=== PATIENT | female | born 1955 | race Caucasian/White ===

== ENCOUNTER → 2018-04-09 11:46 | Outpatient (CLI) | payer BC, SELFPAY ==
[2018-04-09 12:37] LABS: Abs Immature Grans 0.01 k/cumm (0.0-0.09); Absolute Basophil Count 0.02 k/cumm (0.0-0.2); Absolute Eosinophil Count 0.26 k/cumm (0.0-0.7); Absolute Lymphocyte Count 2.02 k/cumm (1.2-3.4); Absolute Monocyte Count 0.68 k/cumm (0.11-0.7); Absolute Neutrophil Count 4.83 k/cumm (1.2-6.7); Basophils % 0.3; Eosinophils % 3.3; HCT 41.1 % (36.0-46.0); HGB 13.3 g/dL (12.0-15.5); Immature Grans % 0.1; Lymphocytes % 25.8; Mean Corp. HGB Concentration 32.4 g/dL (32.0-36.0); Mean Corpuscular Volume 95.8 fL (80-95); Mean Platelet Volume 10.3 fL (8.0-11.0); Monocytes % 8.7; Neutrophils % 61.8; Platelet Count 230 x1000/uL (130-400); RBC 4.29 m/cumm (4.00-5.20); RBC Distribution Width 12.9 % (11.7-14.6); White Blood Cell Count 7.82 k/cumm (4.4-10.8)
[2018-04-09 12:59] LABS: Hemoglobin A1C 6.1 % (4.5-6.2)
== END ==
PROVIDERS: PCP Family Medicine; Visit Provider Internal Medicine
DX: R21 Rash and other nonspecific skin eruption (principal); D64.9 Anemia, unspecified
CPT/HCPCS: 36415; 87077; 83036; 85025; 87070; 87186; 87205

== ENCOUNTER 2018-04-18 14:14 | Emergency (ER) | payer BC, SELFPAY ==
[2018-04-18] VITALS (14 sets, daily range): BP systolic 151–193; BP diastolic 55–75; PULSE 75–85; RESP 13–19; TEMP 37.1–37.2; O2SAT 94–99
--- NOTE | 2018-04-18 14:43 | DI.RPTCT_ITS ---
SYMPTOMS/DIAGNOSIS: CHEST PAIN, DIZZY, BLURRED SPEECH, TRANSIENT DYSARTHRIA PA AND LATERAL CHEST: The lungs are free of infiltrate. The heart is top limits of normal in size. The hilar structures, mediastinum and tracheal air column are intact. SUMMARY: No evidence of acute cardiopulmonary disease. CRANIAL CT: A noncontrast enhanced examination was performed. Moderate atrophic changes are demonstrated. There is no evidence of an intra/extra-axial hemorrhage, mass or edema and nothing to suggest an acute territorial infarct. The ventricles are unremarkable. There is no evidence of a skull fracture. The paranasal sinuses are intact. There is no evidence of a mastoid effusion. SUMMARY: Atrophic changes are identified. No acute intracranial abnormality is identified.
[2018-04-18] MEDS: Normal Saline 1,000 ML 1000 ML IV ×2 (14:45→16:35)
[2018-04-18] MEDS: Meclizine 25 MG TAB PO (14:54)
[2018-04-18 15:13] LABS: Abs Immature Grans 0.03 k/cumm (0.0-0.09); Absolute Basophil Count 0.02 k/cumm (0.0-0.2); Absolute Eosinophil Count 0.27 k/cumm (0.0-0.7); Absolute Lymphocyte Count 1.84 k/cumm (1.2-3.4); Absolute Monocyte Count 0.83 k/cumm (0.11-0.7); Absolute Neutrophil Count 5.77 k/cumm (1.2-6.7); Basophils % 0.2; Eosinophils % 3.1; HCT 39.7 % (36.0-46.0); HGB 13.1 g/dL (12.0-15.5); Immature Grans % 0.3; Mean Corpuscular Hemoglobin 30.8 pg (27.0-33.0); Mean Corpuscular Volume 93.2 fL (80-95); Mean Platelet Volume 10.4 fL (8.0-11.0); Monocytes % 9.5; Neutrophils % 65.9; Platelet Count 254 x1000/uL (130-400); RBC 4.26 m/cumm (4.00-5.20); RBC Distribution Width 12.8 % (11.7-14.6); White Blood Cell Count 8.76 k/cumm (4.4-10.8)
[2018-04-18 15:31] LABS: ALT 31 U/L (12-78); AST 17 U/L (15-37); Albumin 4.1 g/dL (3.4-5.0); Alkaline Phosphatase 121 U/L (46-116); Anion Gap 10.5 mmol/L (3-11); BUN 18 mg/dL (7-18); Bilirubin, Total 0.5 mg/dL (0.2-1.0); CO2 24.5 mmol/L (21.0-32.0); CREATININE 0.71 mg/dL (0.55-1.02); Chloride 97 mmol/L (98-107); Glucose 113 mg/dL (70-100); Potassium 3.9 mmol/L (3.5-5.1); Sodium 132 mmol/L (136-145)
[2018-04-18 15:36] LABS: Troponin I < 0.02 ng/mL (0.00-0.06)
[2018-04-18] MEDS: Ondansetron 4 MG/2 ML VIAL IVP (15:43)
[2018-04-18] MEDS: Acetaminophen 500 MG TAB 1000 MG PO (15:44)
--- NOTE | 2018-04-18 16:24 | ED.GENADUL ---
Disposition Clinical Impression: BPPV (benign paroxysmal positional vertigo), Dehydration Disposition: HOME Condition: Good Instructions: Dehydration (ED), Benign Paroxysmal Positional Vertigo (ED) Additional Instructions: Please take your medications as directed. Please drink 8-10 cups of water per day. If you notice any worsening of your symptoms, or any new symptoms such as vomiting, diarrhea, fever, chills, shortness of breath, chest pain, numbness, weakness, or fainting , please return immediately to the emergency department for reevaluation. Please follow up with your primary care provider as soon as possible for reassessment and reevaluation. As always, it was a pleasure participating in your medical care today. Prescriptions: Meclizine [Antivert] 25 mg PO Q6H #30 tab Referrals: Megan Jimenez MD, [place] [Primary Care Provider] - Medical Decision Making - Lab Data Laboratory Tests 04/18/18 04/18/18 14:30 14:30 WBC 8.76 RBC 4.26 Hgb 13.1 Hct 39.7 MCV 93.2 MCH 30.8 MCHC 33.0 RDW 12.8 Plt Count 254 MPV 10.4 Immature Gran % 0.3 Neutrophils % 65.9 Lymphocytes % 21.0 Monocytes % 9.5 Eosinophils % 3.1 Basophils % 0.2 Absolute Neutrophils 5.77 Absolute Lymphocytes 1.84 Absolute Monocytes 0.83 H Absolute Eosinophils 0.27 Absolute Basophils 0.02 Sodium 132 L Potassium 3.9 Chloride 97 L Carbon Dioxide 24.5 Anion Gap 10.5 BUN 18 Creatinine 0.71 Estimated GFR/1.73 m2 >= 60.00 Glucose 113 H Calcium 9.0 Total Bilirubin 0.5 AST 17 ALT 31 Alkaline Phosphatase 121 H Troponin I < 0.02 Total Protein 8.0 Albumin 4.1 - Medical Decision Making This is a 63-year-old female who presents with symptoms of mild dizziness, weakness, the transient episode of difficulty speaking that occurred prior to arrival. On her arrival the patient demonstrates a completely normal neurologic exam. NIH score of 0. Hence exam does demonstrate horizontal nystagmus and a positive head impulse test to the right. Suggesting a peripheral event. The patient does look notably dry on exam. She has been rehydrated with 2 L normal saline. Patient's chest x-ray as well as her head CT is negative for any acute process. Laboratory workup is benign. EKG is unremarkable. This time we will continue to hydrate, and monitor. We have given her meclizine will reassess with this. I feel her symptoms are more likely from peripheral vertigo and less likely from a TIA. She is on 81 mg of aspirin already, we will most likely increase this to 364 daily. EKG 14: 24 Rate 84, intervals normal, no ST elevations or depressions. Inverted T-wave in V1, and lead III. Questionable small Q-wave in lead III and V1. No other significant abnormalities. 5:27 PM The patient's ABCD 2 risk score for TIA (which I do not feel is actually the cause of the patient's symptomatology ) is in the low risk category at 1-3 points. Patient's laboratory workup including her urinalysis remains benign. Patient feels better. She ambulates well on exam. She shows no signs of focal neurologic deficit. I feel her symptoms most likely secondary to benign peripheral positional vertigo, as noted on physical exam findings with horizontal nystagmus and a positive head impulse test to the right. Patient's symptoms have improved with the meclizine. Feel that she can be safely discharged home. We will encourage her to increase her aspirin, follow-up with her primary care provider, and if she is continuing to feel well to take her home Cipro that her PCP had recommended. We discussed red flags which to return as well as the importance of close follow-up and the patient understands. I have extensively reviewed the treatment plan and discharge instructions with the patient. I have addressed all patient concerns at this time. The patient was made aware of what symptoms to monitor for that would warrant a return to the emergency department. Discussed the plan with the patient, they demonstrate verbal understanding and agreement with our assessment and plan at this time. History of Present Illness - General Chief complaint: Dizzy/Sync Stated complaint: DIZZY.BLURRED SPEACH, POSSIBLE ECOLI BACT. Time Seen by Provider: 04/18/18 14:42 - History of Present Illness Initial comments: This is a 63-year-old female with a past medical history of hypertension, hyperlipidemia, as well as a rash under her breast who presents for evaluation of dizziness, weakness, and a transient difficulty speaking. Roughly 2 hours prior to arrival the patient states that she noticed that she was mildly dizzy, with mild room spinning sensation, had some generalized weakness and fatigue, and some mild difficulty speaking. She states that there was no slurring of her words but rather she had a hard time for her brain communicating with her mouth for what to say. The patient states that she continues to feel slightly dizzy, but no longer has a difficulty speaking. The symptoms do appear to be transient. The patient denies any history of stroke, TIA, or family history of stroke, or cardiac disease. She denies any tinnitus at this time. Of note the patient has had a rash, for which she has received 2 doses of fluconazole on a weekly basis, and her PCP recently recommended starting her on Cipro today secondary to her cultures returning back for Enterococcus faecalis, but the patient has not taken any of this medication. She does drink 1 cup of wine every night. The patient denies any numbness, tingling, or focal weakness. She denies any recent surgeries. She has no other complaints at this time. - Related Data Aspirin 1 tab PO qPM tab-cap 04/01/13 Ascorbic Acid [Vitamin C] 250 mg PO DAILY 10/08/15 Clobetasol/Emoll [Temovate Emollient 0.05%] 2 - 4 gm TP BID PRN #3 tube 05/08/17 Triamcinolone [Kenalog 0.025% Oint] 4 gm TP BID PRN #3 tub 05/08/17 Atorvastatin Calcium 40 mg PO DAILY #90 tab-cap 09/04/17 Amlodipine Besylate 5 mg PO DAILY #90 tab-cap 12/26/17 Losartan Potassium [Cozaar] 100 mg PO DAILY #90 tab-cap 12/26/17 Propranolol HCl 1 tab PO BID PRN #180 tab 12/26/17 Fluconazole 150 mg PO weekly #3 cap 04/09/18 Mupirocin Calcium [Mupirocin] 15 gm TP BID #1 script 04/09/18 Ciprofloxacin [Cipro] 500 mg PO BID #14 tab-cap 04/18/18 Fish Oil/Dha/Epa [Fish Oil 1,200 mg Fish Oil] 1 tab PO DAILY AM 04/18/18 Meclizine [Antivert] 25 mg PO Q6H #30 tab 04/18/18 Allergies Allergy/AdvReac Type Severity Reaction Status Date / Time erythromycin base Allergy Intermediate RASH, Unverified 04/18/18 14:29 HIVES, BLISTERS latex Allergy Intermediate RASH Unverified 04/18/18 14:29 Penicillins Allergy Intermediate HIVES Unverified 04/18/18 14:29 Sulfa (Sulfonamide Allergy Intermediate SKIN RASH Unverified 04/18/18 14:29 Antibiotics) Tetracyclines Allergy Intermediate RASH, Unverified 04/18/18 14:29 HIVES, BLISTERS neomycin Allergy Unknown Unverified 04/18/18 14:29 Review of Systems Other: 10 point review of systems was performed, pertinent positives and negatives are noted in the history of present illness. General Exam - Other Other exam information: 1.Const: Well-nourished, Well-developed, appearing stated age 2.Eyes: PERRL, no conjunctival injection, and symmetrical lids. Horizontal nystagmus is noted. No vertical or rotatory nystagmus. 3.ENT: Atraumatic external nose and ears. Notably dry MM. Neck: Symmetric, trachea midline, No thyromegaly. 4.CVS: +S1/S2, No murmurs or gallops. Peripheral pulses 2+ and equal in all extremities. Brisk capillary refill in all extremities. 5.RESP: Unlabored respiratory effort. Clear to auscultation bilaterally. No wheezes rales or rhonchi 6.GI: Soft, Nontender/Nondistended, No hepatosplenomegaly. No guarding or rebound. 7.MSK: Normocephalic/Atraumatic, Extremities w/o deformity or ttp No cyanosis or clubbing, Normal movement of all extremities 8.Skin: Patient demonstrates notable erythema beneath her breasts bilaterally and under her left axilla. Minimal warmth. No active drainage, vesicles, or skin breakdown. Signs and symptoms would be normally concerning for fungal infection in this area. 9.Neuro: envelope stuffer II-XII grossly intact. Sensation grossly intact, no focal neurologic deficits. Cerebellar function testing is normal. The patient demonstrates a normal hints exam with no findings concerning for a central event. No vertical nystagmus. Horizontal nystagmus is noted though. The head impulse test is negative for any significant central abnormality, however the patient does demonstrate no notable worsening of her symptoms with sharp movement to the right. Normal test of skew. No suggestion of a central cerebellar event. All 6 cardinal planes of vision or fully intact. No evidence of horizontal or vertical nystagmus. The patient demonstrated a normal [id number], good dexterity. There was no evidence of dysdiadochokinesia. Patient was able to ambulate without difficulty. There was no wide-based gait. Romberg, and cwlc-wa-tizn are both normal on testing. Sensation was intact bilaterally as well as muscle strength bilaterally for all extremities. Patient was able to verbalize butter cup with no slurring, or miss pronunciation. 10.Psych: (AAO) x3. Appropriate mood and affect Course Vital Signs - 24 hr 04/18/18 04/18/18 04/18/18 14:20 14:23 14:30 Temperature 37.2 C Pulse 85 Respiratory 16 16 17 Rate Blood Pressure 190/75 Pulse Oximetry 97 99 04/18/18 04/18/18 04/18/18 14:31 14:40 14:46 Temperature Pulse 84 75 Respiratory 14 19 17 Rate Blood Pressure 193/66 160/55 Pulse Oximetry 98 95 94 L 04/18/18 04/18/18 04/18/18 14:49 15:19 15:20 Temperature Pulse 78 Respiratory 16 19 15 Rate Blood Pressure 151/57 Pulse Oximetry 94 L 96 04/18/18 04/18/18 04/18/18 15:21 15:30 15:31 Temperature Pulse 79 Respiratory 18 17 13 Rate Blood Pressure 155/58 Pulse Oximetry 96 94 L 95 04/18/18 04/18/18 15:40 15:45 Temperature 37.1 C Pulse 78 Respiratory 19 18 Rate Blood Pressure 155/58 Pulse Oximetry 95 94 L
[2018-04-18 17:12] LABS: Bilirubin Negative (Negative); Blood Trace-intact (Negative); Clarity Clear; Glucose Negative (Negative); Ketones Trace mg/dL (Negative); Leukocyte Esterase Trace (Negative); Nitrite Negative (Negative); Specific Gravity 1.015 (1.005-1.025); Urobilinogen 0.2 EU/dL (Up TO 0.2)
[2018-04-18 17:20] LABS: Bacteria Few HPF (Negative); C & S Indicated? No; Casts Negative LPF (Negative); Crystals Negative HPF (Negative); Epithelial Cells Moderate HPF (Negative); Mucus Negative (Negative); RBC 0-2 (0-2); WBC 0-2 HPF (0-5)
== END 2018-04-18 17:35 | disposition home or self-care (01) ==
PROVIDERS: Emergency Provider Student in an Organized Health Care Education/Training Program; PCP Family Medicine
DX: H81.10 Benign paroxysmal vertigo, unspecified ear (principal); I10 Essential (primary) hypertension
CPT/HCPCS: 36415; 80053; 93005; 96361; 96374; 99285; 70450; 71046; 81003; 81015; 84484; 85025; 93010; 99284; J2405

== ENCOUNTER 2019-01-07 10:04 | Outpatient (CLI) | payer BC, SELFPAY ==
--- NOTE | 2019-01-07 09:45 | DI.RAD_ITS ---
SYMPTOM/DIAGNOSIS: ACUTE LOW BACK PAIN AND RT SCIATICA, M54.41, LUMBAGO LUMBAR SPINE: There are five lumbar type vertebral bodies. No compression fractures are seen. The T 12-L 1 and L 1-2 disc spaces are well maintained. There is moderate narrowing of the L 2-3 disc space and small endplate osteophytes. There is slight narrowing of the L 3-4 disc space. There is severe narrowing of the L 4- 5 disc space, with endplate osteophytes and sclerosis. The L 5-S 1 disc space is well maintained. There are mild facet joint degenerative changes. No spondylolysis or spondylolisthesis is seen. There is no scoliosis. The aorta is calcified and normal in diameter. IMPRESSION: Degenerative disc changes, greatest at L 2-3 and L 4-5.
[2019-01-07 12:00] LABS: ALT 42 U/L (12-78); AST 20 U/L (15-37); Albumin 3.8 g/dL (3.4-5.0); Alkaline Phosphatase 112 U/L (46-116); Anion Gap 11.1 mmol/L (3-11); BUN 17 mg/dL (7-18); Bilirubin, Total 0.4 mg/dL (0.2-1.0); CO2 26.9 mmol/L (21.0-32.0); CREATININE 0.93 mg/dL (0.55-1.02); Calcium 9.3 mg/dL (8.5-10.1); Chloride 104 mmol/L (98-107); Cholesterol 153 mg/dL (50-200); Glucose 101 mg/dL (70-100); HDL Cholesterol 45 mg/dL (40-60); LDL CHOLESTEROL 82 mg/dL (<100); Potassium 4.7 mmol/L (3.5-5.1); Sodium 142 mmol/L (136-145); Total Protein 7.2 g/dL (6.4-8.2); Triglyceride 117 mg/dL (30-150)
[2019-01-07 14:27] LABS: Hemoglobin A1C 6.1 % (4.5-6.2)
== END 2019-01-07 10:24 ==
PROVIDERS: PCP Family Medicine; Visit Provider Family Medicine
DX: M54.41 Lumbago with sciatica, right side (principal); M51.16 Intervertebral disc disorders with radiculopathy, lumbar region; Z00.00 Encounter for general adult medical examination without abnormal findings
CPT/HCPCS: 36415; 80053; 80061; 83721; 72110; 83036

== ENCOUNTER 2020-05-19 03:28 | Outpatient (CLI) | payer OTHER, SELFPAY ==
[2020-05-19 07:54] LABS: Hemoglobin A1C 5.6 % (<5.7)
[2020-05-19 09:38] LABS: ALT 65 U/L (14-59); AST 28 U/L (15-37); Alkaline Phosphatase 130 U/L (46-116); Anion Gap 5.5 mmol/L (3-11); BUN 18 mg/dL (7-18); Bilirubin, Total 0.4 mg/dL (0.2-1.0); CO2 29.5 mmol/L (21.0-32.0); CREATININE 0.73 mg/dL (0.55-1.02); Calculated LDL 85 mg/dL (<100); Chloride 103 mmol/L (98-107); Cholesterol 167 mg/dL (<200); Glucose 102 mg/dL (74-106); HDL Cholesterol 65 mg/dL (40-60); Potassium 4.5 mmol/L (3.5-5.1); Sodium 138 mmol/L (136-145); Total Protein 7.2 g/dL (6.4-8.2); Triglyceride 87 mg/dL (<150)
[2020-05-22 23:16] LABS: 1,25-Dihydroxyvitamin D 37 pg/mL (18-78)
== END 2020-05-19 03:48 ==
PROVIDERS: PCP Family Medicine; Visit Provider Family Medicine
DX: I10 Essential (primary) hypertension (principal); R73.09 Other abnormal glucose; M81.0 Age-related osteoporosis without current pathological fracture
CPT/HCPCS: 36415; 80053; 80061; 82652; 83036

== ENCOUNTER → 2020-11-06 07:56 | Outpatient (BNVA) | payer OTHER, SELFPAY | PROVIDERS: PCP Family Medicine; Referring Provider Family Medicine; Visit Provider Physical Therapy Assistant | DX: Z12.11 Encounter for screening for malignant neoplasm of colon (principal); Z86.010 Personal history of colon polyps; I10 Essential (primary) hypertension ==

== ENCOUNTER 2020-11-11 03:13 | Outpatient (CLI) | payer OTHER, SELFPAY ==
[2020-11-11 10:13] LABS: Source Nasal/Nares
[2020-11-11 12:05] LABS: COVID-19 PCR Negative (Negative)
== END 2020-11-11 03:14 | disposition home or self-care (01) ==
LOC: LBO 03:14
PROVIDERS: PCP Family Medicine; Visit Provider Surgery
DX: Z20.822 Contact with and (suspected) exposure to COVID-19 (principal); Z01.818 Encounter for other preprocedural examination
CPT/HCPCS: 87635

== ENCOUNTER 2020-12-07 02:55 | Outpatient (CLI) | payer OTHER, SELFPAY ==
[2020-12-07 10:42] LABS: Source Nasal/Nares
[2020-12-07 13:23] LABS: COVID-19 PCR Negative (Negative)
== END 2020-12-07 02:56 | disposition home or self-care (01) ==
LOC: LBO 02:55
PROVIDERS: PCP Family Medicine; Visit Provider Surgery
DX: Z20.822 Contact with and (suspected) exposure to COVID-19 (principal); Z01.818 Encounter for other preprocedural examination
CPT/HCPCS: 87635

== ENCOUNTER 2020-12-08 11:19 | Day surgery (SDC) | payer OTHER, SELFPAY ==
--- NOTE | 2020-12-07 14:41 | HPE_ITS ---
Date of service: 12/08/20 Time of Service: 11:00 Assessment and Plan Assessment and plan (1) Tubular adenoma: Status: Chronic Assessment and plan: Plan:Colonscopy The patient will be scheduled by my office. Th ept understands that they need to do a bowel prep and the importance of hydration during this. The patient understands there is a theuraretical risk of renal failure. For healthy patients we use Miralax. For anyone with renal concerns- GoLytely will be used. Plavix and coumadin will need to be held except in unusual circumstances. patient in A. Fib do not need to be bridged with Lovenox or on CVA prophylaxis. A baby ASA can be continued but full dose ASA needs to be stopped for 10 days prior to the procedure. A complete H & P is required with in 30 days of the procedure. MAC is used for the colonoscopy. Colonoscopy does not require antibiotics prophylaxis. Risks: Informed consent is obtained for the procedural (explained in simple layman's terms that the pt and/or family could understand) explaining risks vs benefits and alternatives to the procedure and consequences if we do not do the procedure and need/rational for the procedure. Risks include but are not limited to:bleeding, infection, perforation of colon. This would necessitate emergency surgery to repair the damage w/ possible ostomy; and other associated complications w/ the required surgery. Also complications of anesthesia including aspiration,IL/CVA/. I discussed with the patient would they could expect during the procedure, post procedure and recovery time and risks. The patient understands that they need to have a ride home after the procedure. The patient was given all this information in writing and expressed understanding. 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 Her last screening was in 2016, which was remarkable for tubular adenoma. She denies a family history of colon cancer. She denies any changes in bowel habits. She describes intermittent heartburn and abdominal bloating which various based on her diet. Denies bloody or black tarry stools, abdominal pain, diarrhea or constipation. He denies constitutional symptoms. Denies use of marijuana or any other recreational or illegal drugs. He denies chest pain, palpitations, dyspnea or dyspnea with exertion. He denies prior history or family history of adverse reactions or complications with anesthesia. The patient denies any history of stroke, IL, seizures, bleeding or clotting disorders. He denies having any implanted metal in his body. She had no problems with her last colonoscopy, either the prep or the anesthesia. She completed the prep yesterday. She is having only clear yellow yellow discharge today. She has no abdominal pain or cramping. Patient denies any chest pain or shortness of breath. She denies any productive cough or fever and chills. She has not been to the ER within the last 30 days. She has had no changes in her medications or medical status since her office H&P with Gaby Lebron Review of Systems All systems reviewed & are unremarkable except as noted in HPI and below PFS Medical History (Updated 12/08/20 @ 15:01 by Angelia Betancourt DO) Abnormal cervical Papanicolaou smear 07/20/02 +ASCUS; neg HPV Carpal tunnel syndrome Cervical spondylosis Cervical spondylosis (07/20/03) 2004 MRI C5-6 neural foraminal narrowing 2007 MRI DDD and C5-6 C6-7 neuroforaminal narrowing Conductive hearing loss in right ear (04/12/18) Conductive hearing loss of both ears Dermatitis Bx showing dermatitis and epidermal spongiosum Diarrhea Essential hypertension Essential hypertension (09/18/13) Fibrocystic breast disease Gastroesophageal reflux disease with esophagitis GERD (gastroesophageal reflux disease) Hx of breast cancer Insomnia Insomnia Low back pain MRI 2007 DDD L4-5. Tiny Disc herniation w/o nerve impingement Low vision, one eye (04/01/13) Lumbago without sciatica MRI 2008 DDD L4-5. Tiny Disc herniation w/o nerve impingement Mastoiditis Menopausal syndrome Migraine Migraine Pain in thoracic spine Pain in thumb joint with movement left thumb pain w/ abnormal x-rays 2006 Pain in thumb joint with movement Photosensitization due to sun tanning bed Hx Postmenopausal bleeding 07/20/03 neg endo bx fibroid on pelvic u/s Psoriasis Psoriasis Rotator cuff syndrome Rotator cuff syndrome MRI of right shoulder w/partial thickness tear of supraspinatus, moderate atrophy and fluid in the bursa. S/p surgery Sensorineural hearing loss, unilateral, left ear, with restricted hearing on the contralateral side (04/12/18) Smoker Squamous cell cancer of buccal mucosa (09/04/17) S/P SURGERY Tubular adenoma (01/04/16) Wart Surgical History Breast, Lumpectomy (~06/2004) Colonoscopy - MAC (~12/2005) NEG Open Carpal Tunnel release (~06/2004) PROCEDURES MRI right shoulder with partial thickness tear of supraspinatus, moderate atrophy and fluid in the bursa. S/P surgery. S/P breast lumpectomy 08/21/03 S/P carpal tunnel release 08/21/03 Family History Mother , 72 Essential hypertension Heart disease Hyperlipidemia Stroke Father , 69 Essential hypertension Heart disease CHF Hyperlipidemia Myocardial infarction Stroke Brother , 60 Essential hypertension Heart disease Hyperlipidemia Stroke Sister Essential hypertension CHF (congestive heart failure) Heart disease Hyperlipidemia Maternal Grandfather No problems noted. Paternal Grandfather No problems noted. Maternal Grandmother No problems noted. Paternal Grandmother No problems noted. Sister Essential hypertension Sister Essential hypertension Daughter No problems noted. Daughter No problems noted. Social History (Updated 11/09/20 @ 08:28 by KIMBERLEE Erwin) Smoking/Tobacco Use Status: Former Tobacco Use tobacco type: cigarettes Quit Date: 08/21/17 Tobacco: How many years used: 35 Smoking risk assessment performed?: Yes Alcohol Intake: current Alcohol Intake frequency: a few times a week Alcohol type: wine and hard liquor Drug use: Never Substance use type: does not use Caregiver/Support person: No Household members: spouse Housing: house Communication Needs: Hard of Hearing Do you need help understanding health information?: Rarely Pets and animals: No Sexually active: Yes Do you think of yourself as: straight/heterosexual Current gender identity: female What is your relationship status?: How often do you talk on the phone with friends or family?: twice per week How often do you get together with friends or relatives?: twice per week How often do you attend zoroastrian or islam services?: 1-3 times per year Do you belong to any clubs or organized social groups?: no Panel score (0-1 are the most socially isolated patients): 2 What type of physical activity do you participate in: none Sheba/Scientologist: Hoahaoism Special sheba needs: No Seatbelt use: always Helmet use: No Drive intox or ride w/intox warehouse delivery driver: No Do you feel safe at home: Yes Do you feel safe in your relationship?: Yes Meds Allergies and Home Medications Allergies Allergy/AdvReac Type Severity Reaction Status Date / Time erythromycin base Allergy Intermediate RASH, Verified 12/08/20 11:34 HIVES, BLISTERS latex Allergy Intermediate RASH Verified 12/08/20 11:34 Penicillins Allergy Intermediate HIVES Verified 12/08/20 11:34 Sulfa (Sulfonamide Allergy Intermediate SKIN RASH Verified 12/08/20 11:34 Antibiotics) Tetracyclines Allergy Intermediate RASH, Verified 12/08/20 11:34 HIVES, BLISTERS neomycin Allergy Unknown Verified 12/08/20 11:34 Home Medications Medication Instructions Recorded Confirmed Type aspirin 81 mg chewable tablet 81 mg PO DAILY 01/07/19 12/08/20 History mupirocin calcium 2 % topical cream 1 applic TOPICAL BID PRN gm 01/07/19 12/08/20 History triamcinolone acetonide 0.1 % 1 applic TOPICAL BID PRN #80 gm 01/07/19 12/08/20 Rx topical ointment cholecalciferol (vitamin D3) 25 1,000 unit PO DAILY 07/08/19 12/08/20 History mcg (1,000 unit) capsule amlodipine 5 mg tablet 5 mg PO DAILY #90 tab-cap 02/06/20 12/08/20 Rx atorvastatin 40 mg tablet 40 mg PO DAILY #90 tab-cap 02/06/20 12/08/20 Rx losartan 100 mg tablet 100 mg PO DAILY #90 tab-cap 02/06/20 12/08/20 Rx propranolol 60 mg tablet 60 mg PO BID PRN #180 tab 02/06/20 12/08/20 Rx clobetasol-emollient 0.05 % 2 - 4 gm TOPICAL BID PRN #3 tube 02/25/20 12/08/20 Rx topical cream chlorthalidone 25 mg tablet 25 mg PO DAILY #90 tab 08/25/20 12/08/20 Rx zinc acetate 50 mg (zinc) capsule 50 mg PO DAILY 08/25/20 12/08/20 History ascorbate calcium (vitamin C) 500 500 mg PO DAILY 03/19/21 04/20/21 History mg tablet Exam Narrative Exam Narrative: GENERAL APPEARANCE: Alert, healthy appearance, oriented, in no acute distress SKIN: No rashes. No breakdown HYDRATION: Well hydrated HEAD, EYES, EARS, NECK, AND THROAT: Head is normocephalic, pupils equal, round, reactive to light and accommodation, ocular movement intact, sclera clear Yes [place] and no jaundice. Dentition intact. No thrush NECK: Supple, Trachea midline. No JVD LUNGS: normal respiration, clear to auscultation HEART: Regular rate and rhythm, EXTREMITY: No edema or cyanosis no redness or calf pain ABDOMEN: non tender to palpation, no masses or distention, no hernias. Normal bowel sounds NEURO: no focal neuro deficits. COVID-19 Screening Have you, or household traveled for leisure in last 14 days?: No Had IN PERSON contact w/suspected or confirmed C-19 person: No
[2020-12-08 11:22] VITALS: BP 144/63; PULSE 68; RESP 20; TEMP 36.5; O2SAT 99
[2020-12-08] MEDS: Lactated Ringers 1,000 ML 80 ML IV (11:52)
--- NOTE | 2020-12-08 13:04 | BOWEL_PTH ---
PATIENT: Babita Garsia LOC: [facility] U#:[id number] AGE/SX: 65/F ROOM: RE12/08/[address]: Angelia Betancourt : 1955 BED: DIS: 12/08/2020 SPEC #: [id number] RECD: 12/08/20 18:17 STATUS: MAXIMILIANO REQ #: [id number] LIZETH: 12/08/20 13:[address]: Angelia Betancourt DEPT: Surgical Specimen RECD BY: Judy Boles ENTERED: 12/08/20 18:19 SP TYPE: Bowel OTHR DR: Megan Jimenez MD, DC Tissues: 1 - BIOPSY BOWEL 2 - BIOPSY BOWEL Procedures: GROSS AND MICRO LEVEL 4 Comments: [id number]
--- NOTE | 2020-12-08 13:45 | W.PM.ENDDOP ---
Date of service: 12/08/20 Time of Service: 13:45 Endoscopy Report DATE OF PROCEDURE: 12/08/20 PRE-OP DIAGNOSIS: A. polyps POST-OP DIAGNOSIS: other (diveritcula/ polyps x3 at 20cm & x2 i rectum )
--- NOTE | 2020-12-08 13:59 | COLE_ITS ---
Date of service: 12/08/20 Time of Service: 13:59 Colonoscopy Report Date of procedure: 12/08/20 Pre-op diagnosis general: A. polyps Post-op diagnosis procedure note: same (diverticulum ) Surgeon: Angelia Betancourt Anesthesia Type: General:No Airway Estimated blood loss (mL): 1 Pathology: other Complications: None Disposition: same day Prep: Miralax/Dulcolax Retraction Time: 15 Procedure Description: After informed consent was obtained the patient was taken to the procedure room and placed in a left decubitous position. Monitors were applied and a time out was done. The patients name, date of , procedure, allergies to medications and metal in their body was reviewed. The patient was then sedated. Once sedated and comfortable a rectal exam was done. External exam was normal. Internal exam revealed a normal sphincter tone and no palpable masses. The scope was then introduced and retrofelexed. No internal hemorrhoids were identified. The scope was then advanced to the cecum w/ difficulty. The colon is extremely tortuous. She does make very sharp turns at the splenic and hepatic flexures. We did have to change position (onto her back) and use abdominal pressure in order to advance the scope. The TI and appendiceal orifice were identified. The prep was good. The scope was then slowly retracted over 15 minutes back into the rectum. She does have x3 small polyps that removed at 20 cm with a cold biting forcep. She has x2 polyps in the rectum that are removed with cold biting forcep as well. She has moderate diverticular disease confined to the sigmoid colon with no signs of active bleed ing or infection. The scope was removed and the patient was woken up and taken back to Same day surgery in stable condition. The patient tolerated the procedure well and there were no immediate c omplications. Follow up: The patient should follow up in 5-10 years, (path pd) unless they develop changes in bowel habits or other new gastrointestinal complaints.
[2020-12-08] MEDS: Hyoscyamine 0.125 MG SL/ORAL/CHEW SL (14:01)
[2020-12-08 14:16] VITALS: BP 126/64; PULSE 59; RESP 24; TEMP 36.1; O2SAT 98
[2020-12-08 14:44] VITALS: BP 133/65; PULSE 54; RESP 22; TEMP 36; O2SAT 98
--- NOTE | 2020-12-08 14:59 | PDOC.DSDIS_ITS ---
Discharge Plan Disposition Patient Disposition: HOME Condition: Good Discharge Details Reason For Visit: colon scope Attending Provider: Angelia Betancourt Primary Care Provider: Megan Jimenez Home Meds and New Rx's Prescriptions: Continued mupirocin calcium 2 % cream 1 applic Topical BID PRNRF: 0 aspirin 81 mg tablet,chewable 81 mg PO DAILY RF: 0 triamcinolone acetonide 0.1 % ointment 1 applic Topical BID PRN (Reason: psoriasis) Qty: 80 RF: 4 ascorbate calcium (vitamin C) 500 mg tablet 500 mg PO DAILY RF: 0 cholecalciferol (vitamin D3) 1,000 unit capsule 1,000 unit PO DAILY RF: 0 Galzin 50 mg (zinc) capsule 50 mg PO DAILY RF: 0 chlorthalidone 25 mg tablet 25 mg PO DAILY Qty: 90 RF: 4 atorvastatin 40 mg tablet 40 mg PO DAILY Qty: 90 RF: 4 amlodipine 5 mg tablet 5 mg PO DAILY Qty: 90 RF: 12 losartan [Cozaar] 100 mg tablet 100 mg PO DAILY Qty: 90 RF: 4 propranolol 60 mg tablet 60 mg PO BID PRN (Reason: tremor(s)) Qty: 180 RF: 4 clobetasol-emollient 0.05 % cream 2 - 4 gm Topical BID PRN (Reason: psoriasis) Qty: 3 RF: 6 Discharge Instructions Instructions: Diverticulosis (DC), Colorectal Polyps (DC) Additional Instructions: Findings: X2 polyps that are very small diverticula Follow up: My office will send a letter in approximately three weeks, as to the type of polyps they are and when to repeat the scope. Please call if you develop: fevers >101.5 Nausea or Vomiting Abdominal pain that is not transient DAY SURGERY UNIT POST COLONOSCOPY INSTRUCTIONS 1. Because there will be medication in your system for the next 24 hours, you may feel a little sleepy. Your coordination will be affected. Therefore: a. Do not drive or operate dangerous equipment for 24 hours. b. Do not drink alcohol beverages for 24 hours (not even beer). c. Plan to go home and rest for the day. 2. Generally there are no restrictions on your activity after a day or so has gone by, but you may feel a bit fatigued for a few days. 3 After you arrive home you may have a light meal and return to a normal diet as you can tolerate it without feeling sick to your stomach. 4. After surgery, you may feel pain or discomfort. This should be only transient, but if it persists please contact your doctor. 5. If there are any questions regarding the findings of your procedure, please feel free to contact your doctor. 6. If you are unable to contact your doctor with a problem, contact the hospital at [phone]. 7. Continue all your regular medications unless directed otherwise. I understand the above instructions and have no questions. Signature of Patient or Responsible Adult Escort Date/Time Name of Responsible Adult Escort Signature of Nurse Date/Time DIVERTICULAR DISEASE OVERVIEW ? A diverticulum is a pouch-like structure that can form through points of weakness in the muscular wall of the colon (ie, at points where blood vessels pass through the wall). Diverticulosis affects men and women equally. The risk of diverticular disease increases with age. It occurs throughout the world but is seen more commonly in developed countries. WHAT IS DIVERTICULAR DISEASE? Diverticulosis ? Diverticulosis merely describes the presence of diverticula. Diverticulosis is often found during a test done for other reasons, such as flexible sigmoidoscopy, colonoscopy, or barium enema. Most people with diverticulosis have no symptoms and will remain symptom free for the rest of their lives. A person with diverticulosis may have diverticulitis, or diverticular bleeding. Diverticulitis ? Inflammation of a diverticulum (diverticulitis) occurs when there is thinning and breakdown of the diverticular wall. This may be caused by increased pressure within the colon or by hardened particles of stool, which can become lodged within the diverticulum. The symptoms of diverticulitis depend upon the degree of inflammation present. The most common symptom is pain in the left lower abdomen. Other symptoms can include nausea and vomiting, constipation, diarrhea, and urinary symptoms such as pain or burning when urinating or the frequent need to urinate. Diverticulitis is divided into simple and complicated forms. ?Simple diverticulitis, which accounts for 75 percent of cases, is not associated with complications and typically responds to medical treatment without surgery. ?Complicated diverticulitis occurs in 25 percent of cases and usually requires surgery. Complications associated with diverticulitis can include the following: ?Abscess ? a localized collection of pus ?Fistula ? an abnormal tract between two areas that are not normally connected (eg, bowel and bladder) ?Obstruction ? a blockage of the colon ?Peritonitis ? infection involving the space around the abdominal organ ?Sepsis ? overwhelming body-wide infection that can lead to failure of multiple organs Diverticular bleeding ? Diverticular bleeding occurs when a small artery located within a diverticulum is eroded and bleeds into the colon. Diverticular bleeding usually causes painless bleeding from the rectum. In approximately 50 percent of cases, the person will see maroon or bright red blood with bowel movements. Is bleeding with a bowel movement normal? ? It is not normal to see blood in a bowel movement; this can be a sign of several conditions, most of which are not serious (eg, hemorrhoids) but some of which are serious and require immediate treatment. Anyone who sees blood after a bowel movement should consult with their healthcare provider to determine if further testing or evaluation is needed. DIVERTICULOSIS AND DIVERTICULITIS DIAGNOSIS ? Diverticulosis is often found during tests performed for other reasons. ?Barium enema ? This is an x-ray study that uses barium in an enema to view the outline of the lower intestinal tract. This is an older test and has been largely replaced by computed tomography (CT) scan. ?Flexible sigmoidoscopy ? This is an examination of the inside of the sigmoid colon with a thin, flexible tube that contains a camera. ?Colonoscopy ? This is an examination of the inside of the entire colon. ?CT scan ? A CT scan is often used to diagnose diverticulitis and its complications. If diverticulitis (not just diverticulosis) is suspected, the above three tests should not be used because of the risk of perforation. TREATMENT Diverticulosis ? People with diverticulosis who do not have symptoms do not require treatment. However, most clinicians recommend increasing fiber in the diet, which can help to bulk the stools and possibly prevent the development of new diverticula, diverticulitis, or diverticular bleeding. Fiber is not proven to prevent these conditions in all patients but may help to control recurrent episodes in some. Increase fiber ? Fruits and vegetables are a good source of fiber. Fiber content of packaged foods can be calculated by reading the nutrition label. Seeds and nuts ? Patients with diverticular disease have historically been advised to avoid whole pieces of fiber (such as seeds, corn, and nuts) because of concern that these foods could cause an episode of diverticulitis. However, this belief is completely unproven. We do not suggest that patients with diverticulosis avoid seeds, corn, or nuts. Diverticulitis ? Treatment of diverticulitis depends upon how severe your symptoms are. Home treatment ? If you have mild symptoms of diverticulitis (mild abdominal pain, usually left lower abdomen), you can be treated at home with a clear liquid diet and oral antibiotics. However, if you develop one or more of the following signs or symptoms, you should seek immediate medical attention: ?Temperature >100.1?F (38?C) ?Worsening or severe abdominal pain ?An inability to tolerate fluids Hospital treatment ? If you have moderate to severe symptoms, you may be hospitalized for treatment. During this time, you are not allowed to eat or drink; antibiotics and fluids are given into a vein. If you develop an abscess of the colon, you may require drainage of the abscess (usually performed by placing a drainage tube across the abdominal wall) or by surgically opening the affected area. Surgery ? If you develop a generalized infection in the abdomen (peritonitis), you will usually require an emergency operation. A two-part operation may be necessary in some cases. ?The first operation involves removal of the diseased colon and creation of a colostomy. A colostomy is an opening between the colon and the skin, where a bag is attached to collect waste from the intestine. The lower end of the colon is temporarily sewed closed to allow it to heal. ?Approximately three to six months later, a second operation is performed to reconnect the two parts of the colon and close the opening in the skin. You are then able to empty your bowels through the rectum. Sometimes patients require up to a year to recover from the first operation, depending on how sick they were. In non-emergency situations, the diseased area of the colon can be removed and the two ends of the colon can be reconnected in one operation, without the need for a colostomy. Surgery versus medical therapy ? An operation to remove the diseased area of the colon may be necessary if you do not improve with medical therapy. After an episode of uncomplicated diverticulitis, elective surgery is generally not required as the risk of another attack or requiring emergency surgery is low. However, patients with persistent symptoms attributable to diverticulitis, a history of complicated diverticulitis, or a compromised immune system should be evaluated for possible surgery to prevent another attack. In such patients, another attack has been associated with a higher risk of complications or . Of course, the decision will also depend in part upon your other medical conditions and ability to undergo surgery. In many cases, an elective operation can be performed laparoscopically, using small incisions, rather than the typical vertical (up and down) abdominal incision. Laparoscopic surgery usually allows you to recover more quickly and shortens the hospital stay. After diverticulitis resolves ? After an episode of diverticulitis resolves, if you have not had a recent colonoscopy, the entire length of the colon should be evaluated to determine the extent of disease and to rule out the presence of abnormal lesions such as polyps or cancer. Recommended tests include colonoscopy, barium enema and sigmoidoscopy, or CT colonography. Diverticular bleeding ? Most cases of diverticular bleeding resolve on their own. However, some people will need further testing or treatment to stop bleeding, which may include a colonoscopy, angiography (a treatment that blocks off the bleeding artery), bleeding scan, or surgery. DIVERTICULAR DISEASE PROGNOSIS Diverticulosis ? Over time, diverticulosis may cause no problems or it may cause episodes of bleeding and/or diverticulitis. Approximately 15 to 25 percent of people with diverticulosis will develop diverticulitis, while 5 to 15 percent will develop diverticular bleeding. Diverticulitis ? Approximately 85 percent of people with uncomplicated diverticulitis will respond to medical treatment, while approximately 15 percent of patients will need an operation. After successful treatment for a first attack of diverticulitis, one-third of patients will remain asymptomatic, one- third will have episodic cramps without diverticulitis, and one-third will go on to have a second attack of diverticulitis. The prognosis tends to remain similar following a second attack of diverticulitis. Only 10 percent of people remain symptom-free after a second attack. Subsequent attacks tend to be of similar severity, not increasing in severity as previously believed. High Fiber Diet What is Dietary Fiber? All fiber comes from plants, bushes, mariana or trees. Of course, the ones that we eat provide us with fruits, vegetables and grains. There are many different types of fiber but the three that are most important to the health of the body are: Insoluble Fiber This fiber does not dissolve in water, nor is it fermented by the bacteria residing in the colon. Rather, it retains water and in so doing, helps to promote a larger, bulkier and more regular bowel activity. This, in turn, may be important in preventing disorder such as diverticulosis and hemorrhoids, and in sweeping out certain toxins and cancer causing carcinogens. Sources of insoluble fiber are: ? whole grain wheat and other whole grains ? corn bran, including popcorn, unflavored and unsweetened ? nuts and seeds ? potatoes and the skins from most fruits from trees such as apples, bananas and avocados ? many green vegetables such as green beans, zucchini, celery and cauliflower ? some fruit plants such as tomatoes and kiwi Soluble Fiber These fibers are fermented or used by the colon bacteria as a food source or nourishment. When these good bacteria grow and thrive, many health benefits occur in both the colon and the body. Soluble fiber is present in some degree in most edible plant foods, but the ones with the most soluble fiber include: ? legumes such as peas and most beans, including soybeans ? oats, rye and barley ? many fruits such as berries, plums, apples bananas and pears ? certain vegetables such as broccoli and carrots ? most root vegetables ? psyllium husk supplement products Prebiotic Soluble Fiber These are relatively newly discovered soluble plant fibers. The technical name for this fiber is inulin or fructan. When these soluble fibers are fermented by the good colon bacteria, some further significant health benefits have been shown to occur by research in many medical centers. These soluble prebiotic fibers occur in significant amounts in: ? asparagus ? yams ? onions ? garlic ? bananas ? leeks ? agave ? chicory and other root vegetables such as [place] artichokes ? wheat, rye and barley (smaller amounts) Benefits of a High Fiber Diet The health benefits of a high fiber diet, consumed on a regular basis and reaching recommended amounts (below), are now fairly well-defined. There are some additional benefits in the early research stage with the prebiotic soluble fibers. What is now known regarding a high fiber diet include: Bowel Regularity A high fiber diet promotes regularity with a softer, bulkier and regular stool pattern. This decreases the chance of hemorrhoids, diverticulosis and perhaps colon cancer. Cholesterol and Reduced Triglycerides The soluble fibers are the ones that will reduce cholesterol levels when used on a regular basis. Psyllium husk and prebiotic soluble fiber will also reduce cholesterol. They may also reduce the incidence of coronary heart disease. Oats, flax seeds and legumes or beans are the recommended fibers. Colon Polyps and Cancer It is still not certain if a high fiber diet helps prevent colon cancer. Considerable research suggests that this may occur. Certainly it makes sense to increase regularity and so speed the movement of cancer causing carcinogens through the bowel. In addition, reducing a heavy meat diet reduces the bile flow from the liver in a favorable way. This, too, reduces the amount of carcinogens that reach and are manufactured in the colon. Finally, a high fiber diet, including prebiotic soluble fiber, increases the integrity and health of the wall of the colon. The risk of cancer may be reduced. Colon Wall Integrity A high fiber diet changes the bacterial makeup of the colon toward a more favorable balance. For instance, it is known that those people with obesity, diabetes type 2 and inflammatory bowel disease have a predominance of bad bacteria in the colon. This, in turn, may render the bowel wall weak and allow bacteria and, indeed, even toxins to seep through. A high fiber diet with a modest reduction in animal and meat products may return the bacterial makeup to a more positive balance. This, in particular, has been seen when the soluble fiber prebiotics are added to the diet. Blood Sugar Soluble fiber such as in legumes (beans), oats and in prebiotic fibers slows the absorption of blood sugar and so helps regulate the sugar in the blood. Insoluble fiber on a regular basis is associated with reduced risk of type 2 diabetes. Weight Loss High fiber diets are more filling and give a sense of fullness sooner than an animal and meat based diet does. In addition, the soluble prebiotic fibers have been shown to turn off the hunger hormones produced in the wall of the gut and to increase the hormones that give a sense of fullness. Those hormones are made in the wall of the gut. New medical research has shown that the bacterial makeup in the colon in overweight people is abnormal to the extent that they manufacture and absorb jerrica ost twice the number of calories through the colon wall as do normals. Prebiotic fibers (below) will help change this hormonal balancein a favorable way. Bacteria and the Function of the Colon The colon finishes the digestive process. Hopefully, the waste products move through in a nice regular manner. Insoluble fibers help this process by retaining water and so producing a bulkier, softer stool, which is easy to pass. The additional role of the colon is to provide a home for an enormous number of micro-organisms, mostly bacteria. Recent research has shown that there are over 1,000 species of bacteria with a total bacterial count ten times the number of cells in the body. These bacteria play a major role in keeping the colon wall itself healthy. In addition, these good bacteria produce a very strong immune system for the body. They significantly increase calcium absorption and bone density. They provide other documented benefits. It is the soluble fibers in the diet that are so effective in stimulating the growth of good colon bacteria. How Much is Enough? The amount of fiber in food is measured in grams. National nutritional authorities recommend the following amounts of dietary fiber daily. Under Age 50 Over Age 50 Men 38 grams 30 grams Women 25 grams 21 grams For a week or so, it is best to tally the amount of fiber you are consuming. Boxed and packaged foods will have the amount of fiber per serving on the nutrition label. Which Fibers and Which Foods are Best? As noted, healthy fiber is only found in plants. The three major categories are whole grains, fruits and vegetables. Whole Grains Wheat, oats, barley, wild or brown rice, amaranth, buckwheat, bulgur, corn, millet, quinoa, rye, sorghum, teff and triticals. By far, wheat, oats and wild or brown rice are most common. Always buy whole grain products. White bread, baked goods and rolls almost always are made from wheat flour. Wheat flour is white because most of the fiber, vitamins and other nutrients have been removed. Try not buy enriched grains. What this means is that simple white flour has had vitamins added to it by the pattern designer. The word, enriched, implies a good and healthy product. On the contrary, enriched means that most of the fiber has been removed and a few vitamins added. Fruits Fruits come from trees such as apple and pear or from bushes or mariana. You should eat a wide variety of fruits, preferably with every meal. In many cases, the skin of a fruit such as apple will contain much of the insoluble fiber while the pulp contains most of the soluble fiber. To the extent possible, buy organic fruits as these will have little or no pesticides. Always wash fruit. Vegetables Eat a wide variety of vegetables. They should be a mainstay of lunch and dinners. Frozen vegetables retain as much nutrition and fiber as fresh vegetables. As with fruit, try to buy organic to reduce any residual pesticide ingestion. Wash fresh vegetables thoroughly. Cruciferous vegetables such as broccoli, [place] sprouts and cauliflower contain certain chemicals such as sulforaphane. This substance has very strong anti-cancer properties and should be eaten frequently. Legumes, Beans, Peas and Soybeans These vegetables have plenty of soluble fiber and should be part of a varied vegetable intake. Beans, in particular, contain a certain type of fiber that may lead to harmless gas or bloating. Nuts and Seeds These are rich sources of fiber and are a good substitute for sweets such as candies and baked sweet goods. While nuts and seeds are rich in fiber, they also contain vegetable fat and so can and do add calories. Read the Labels As noted, fresh and frozen foods are usually better. They have good nutrition and few, if any, chemicals added to them. When buying packaged foods and, in particular grains, look for three things: ? The first word on the label should be whole, such as whole wheat or whole grain. ? Check out the calories and the amount of fiber in a serving. ? How many and what other additives or chemicals are added. Fewer is always better. Do you know what each additive does? Some are added not for the benefit of the horse buyer but rather for manufacturers. These could and do include sugar, artificial flavor, chemicals to prevent oxidation and spoilage, emulsifiers to blend the product. You have to be a sheriff's detective. Fiber Facts, Nuggets and Pearls ? For breakfast you can easily get the day started well by using a high fiber, whole grain cereal. Check the labels. Add fruit such as blueberries and bananas. If you are an egg eater, use whole wheat or grain toast. Adding wheat germ gives you a good fiber kick. ? Always use whole grain or wheat with rolls and sandwiches. Does your fast food store not have them? Perhaps you look elsewhere. Eating an occasional black coronado or veggie burger provides variety. ? Snacks should consist of fruit and/or nuts. While nuts are loaded with fiber, they are an energy rich food, meaning they have a lot of calories in a small packet. ? Fruit juices should contain pulp. Clear juices such as clear orange, pear or apple juice contain little fiber and have a lot of fructose. Prune juice is usually high in fiber. ? Homemade soups ? adding fresh or frozen vegetables to a chicken or vegetable stock is a good way to start homemade soup. ? Salads ? adding cooked and then chilled vegetables provide great flavoring to almost any salad. Remember, a phelps salad has lots of cooked corn in it. Small slices of apples or oranges and nuts such as chopped walnuts or sliced almonds always adds taste, variety and fiber to almost any salad. ? Fruit ? Try to eat fruit of some type with almost every meal. ? Rethink how you place the various foods on your dinner plate. Reducing the portions of the meat or animal food portion to the side with equal or more portions of vegetables, legumes and fruits portion always allows for more fiber. There was never anything magic about making the meat or animal food portion the main part of the dinner plate. Eating from smaller plates can, over time, trick your mind and intermediate frame tender habit of using a dinner plate. Again, there is nothing magic in an 11, 12, or 13 inch dinner plate. Fiber Supplements There are a variety of fiber supplements available on the food or pharmacy shelves. Psyllium This soluble plant fiber has been used in [place] for over 2,000 years. It is a soluble fiber with mucilage in it. This acts to retain a lot of water and also is fermented by colon bacteria. When 7 grams a day are used, it does lower cholesterol. Metamucil in various forms is psyllium. Methyl Cellulose All the cellulose products come from finely ground wood chips which are then treated in a variety of ways such as boiling in acids. Methyl cellulose is an insoluble fiber which does dissolve in water. It is also an emulsifier, meaning it blends oils and water. Citrucel is methyl cellulose (MC). MC may not be appropriate for Crohn?s disease or ulcerative colitis as several medical studies have shown that certain emulsifiers dissolve the mucous lining of the colon in animals prone to Crohn?s disease. This then allows bacteria to invade the underlying tissue. Inulin Inulin is a soluble prebiotic fiber found in many foods and which are fermented mostly in the left side of the colon. It is available in a supplement as generic inulin and in Fiber Choice. Oligofructose FOS These are also prebiotic fibers. They are fermented very quickly in the right side of the colon. Prebiotin This product is a combination of oligofructose, which feeds the bacteria in the right side of the colon and inulin, which does the same in the left side of the colon. There seems to be a benefit for this particular formula based on medical research. Prebiotic Soluble Fiber These may be the healthiest of all the soluble fibers. They grow in many plants and have had a great deal of research done on them in the last 10-15 years. These fibers are found in asparagus, yams and other root vegetables such as chicory, garlic, onion, leeks and in smaller amounts in wheat. This research has shown the following: ? Increase in good and decrease in bad colon bacteria ? Increase calcium absorption and enhanced bone mass ? Enhanced immune system ? Appetite and weight control by changing the hormone appetite signals to the brain ? May decrease colon cancer incidence ? Reduce or correct a leaky colon Eating a wide variety of plant food up to the recommended amount will likely give you enough prebiotic fiber. Supplements such as Prebiotin can be added to t he diet. Short Chain Fatty Acids (SCFA) Some rather remarkable research findings have shown that one of the benefits of ingesting a lot of soluble fiber, in particular the prebiotic ones, results in l arger amounts of SCFAs in the colon. These SCFAs are made by the good bacteria in the colon such as Bifidobacter and Lactobacillus. These small molecules have been shown to do the following: ? Enhance the health and integrity of the colon wall ? Provide nourishment for the cells that actually line the colon ? Increases the acidity of the colon which is a very real health benefit ? Stabilize blood sugar for diabetics ? Reduce blood cholesterol and triglyceride ? Significantly enhance immunity ? May be a benefit for Crohn?s disease and ulcerative colitis patients Fiber and Gas Everyone has intestinal gas and that is a good thing. It means that bacteria, hopefully the good ones, are thriving. The normal amount of flatus passed each day depends on sex and what is eaten. The normal number of flatus is 10-20 times a day. When the bacteria that make intestinal gases are growing, it also means that other good bacteria are using the same fibers to grow and produce multiple health benefits, including the production of healthy short-chain fatty acids. These substances are produced quietly in the colon and produce many health-related outcomes. Soluble fiber should always be used in a gradual manner. If too much is consumed at any one time, then excess, but harmless, intestinal gas can occur. People with irritable bowel syndrome are particularly prone to bloating and mild cramping. In this instance, soluble fiber in the diet or supplement should be used in small doses and increased gradually. Finally, prebiotic fibers tend to cause the production of short-chain fatty acids which acidify the colon. This, in turn, reduces or stops the growth of bacteria that make the smelly hydrogen sulfide gases that produce noxious flatus. People who consume many vegetables with prebiotics or take a prebiotic fiber supplement often have non-odoriferous flatus. Fiber and Irritable Bowel Syndrome Irritable bowel syndrome (IBS) is one of the most common disorders of the lower digestive tract. The symptoms of IBS can be quite varied. They can be a mix of several symptoms such as constipation, diarrhea, crampy abdominal discomfort, bloating and gas. An attack of IBS can be triggered by emotional tension and anxiety, poor dietary habits and certain medications. It is now known that infections in the intestine can lead to long-term IBS symptoms. Increased amounts of fiber in the diet can help relieve the symptoms of irritable bowel syndrome by producing soft, bulky stools. This helps to normalize the time it takes for the stool to pass through the colon. Recent medical research with newer techniques has shown some surprising and dramatic findings for IBS patients. Specifically, there is a very significant and abnormal shift of bacteria from those that provide health benefits to those bad bacteria that we really do not want in the gut. The technical name for this bad group of bacteria is called Firmicutes. Along with this abnormal bacterial collection, there is a smoldering low-grade inflammation in the gut wall that may contribute to symptoms. The goal for IBS patients should be to gradually increase the soluble dietary fibers in the diet so as to promote the growth of good bacteria and so suppress the bad ones along with the associated inflammation. IBS patients need to be careful of the amount of soluble fiber they consume. The reason for this is that, while the good colon bacteria thrive on these fibers and produce health benefits, other gas-forming bacteria may generate excessive but harmless gas and subsequent bloating. Thus, soluble plant fibers or a dietary prebiotic supplement should be taken in small initial doses and then gradually increased to tolerance. Fiber and Colon Polyps/Cancer Colon cancer is a major health problem. This disease is most common in Western cultures. It is not seen very often in rural cultures where the diet is mostly plant based. Usually, colon cancer starts out as a colon polyp, a benign mushroom-shaped growth. In time it grows, and in some people it becomes cancerous. Colon cancer is usually always curable if polyps are removed when found or if surgery is performed at an early stage. It is now known that people can inherit the risk of developing colon cancer, but diet is important, too. As noted, there is a very low rate of colon cancer in residents of countries where grains are unprocessed and retain their fiber. It seems that in the [place] world, cancer-containing agents (carcinogens) remain in contact with the colon wall for a longer time and in higher concentrations. So, a large bulky stool may act to dilute these carcinogens by moving them through the bowel more quickly. Less carcinogenic exposure to the colon may mean fewer colon polyps and less cancer. A very current review of the entire world?s literature on the effect of fiber on colon polyps and cancer prevention has shown rather clearly that for every 10 grams of fiber added to the diet, there is a 10% reduction in incidence of colon cancer. So the recommended 30 gram fiber diet would result in a 30% less chance of getting these tumors. There are also substances produced in the colon by the good bacteria that seem to retard certain pre-cancer factors from developing. They are called short- chain fatty acids (SCFA). See above for description of SCFAs. A high fiber diet increases these substances. So, the combination of dietary fiber and the production of short-chain fatty acids have a clear health benefit. Fiber and Diverticulosis Prolonged, vigorous contraction of the colon over a long period of time may result in diverticulosis. This increased pressure causes small and, eventually, larger ballooning pockets to form. These pockets by themselves cause no problem. However, sometimes they become infected (diverticulitis) or even break open (perforate) causing infection or inflammation within the abdomen (peritonitis). A high fiber diet increases the bulk in the stool and thereby reduces the pressure within the colon. By so doing, the formation of pockets may be reduced or possibly even stopped. In the past, many physicians were fearful that seeds as in tomatoes, nuts or berries were harmful and could get inside these pockets and rattle around, causing damage. We now know that this has never been the case and that these foods contain lots of fiber and are actually beneficial for diverticulosis patients. Certain bulking agents such as psyllium are traditional types of bulk producing supplements. Psyllium is a soluble fiber. Combining it with insoluble fiber as in wheat bran or corn bran (no gluten) can enhance this bulking effect even more. A product containing a prebiotic, psyllium and wheat bran is probably a very good combination for bowel regularity. Prebiotin Regularity/Diverticulosis is one such product. Stand Alone Forms: Colonoscopy Post Instructions, Hien Cabrera (DSU) Activity:: No lifting over 20#'s or strenuous activity x 48hrs Diet:: small light meals x 24 hrs Discharge Orders Discharge Orders: Discharge Order (Routine); Ordered 12/08/20 Ordered By: Angelia Betancourt DS: Diagnosis Discharge Diagnosis (1) Tubular adenoma: Status: Chronic (2) Smoker: Status: Acute (3) Diverticula of colon: Status: Acute
== END 2020-12-08 15:20 | disposition home or self-care (01) ==
PROVIDERS: PCP Family Medicine; Visit Provider Surgery
PROC: 0DJD8ZZ Inspection of Lower Intestinal Tract, Via Natural or Artificial Opening Endoscopic (ICD-10-PCS; CPT 45378; principal; 2020-12-08 11:45)
DX: Z12.11 Encounter for screening for malignant neoplasm of colon (principal); Z86.010 Personal history of colon polyps; K57.30 Diverticulosis of large intestine without perforation or abscess without bleeding; K63.5 Polyp of colon; K62.1 Rectal polyp; Q43.8 Other specified congenital malformations of intestine; K21.9 Gastro-esophageal reflux disease without esophagitis; I10 Essential (primary) hypertension
CPT/HCPCS: 45380; 88305; 99221; J2001; J3490

== ENCOUNTER 2020-12-24 08:40 | Outpatient (CLI) | payer OTHER, SELFPAY ==
[2020-12-24 12:57] LABS: ALT 48 U/L (14-59); AST 20 U/L (15-37); Alkaline Phosphatase 114 U/L (46-116); Anion Gap 9.8 mmol/L (3-11); BUN 17 mg/dL (7-18); Bilirubin, Total 0.4 mg/dL (0.2-1.0); CO2 28.2 mmol/L (21.0-32.0); CREATININE 0.6 mg/dL (0.55-1.02); Calcium 9.5 mg/dL (8.5-10.1); Calculated LDL 84 mg/dL (<100); Chloride 101 mmol/L (98-107); Cholesterol 157 mg/dL (<200); Glucose 115 mg/dL (74-106); HDL Cholesterol 56 mg/dL (40-60); Magnesium 1.3 mg/dL (1.8-2.4); Potassium 4.6 mmol/L (3.5-5.1); Sodium 139 mmol/L (136-145); Total Protein 7.3 g/dL (6.4-8.2); Triglyceride 87 mg/dL (<150)
== END 2020-12-24 08:41 | disposition home or self-care (01) ==
LOC: LOS 08:41
PROVIDERS: PCP Family Medicine; Referring Provider Family Medicine; Visit Provider Family Medicine
DX: E78.5 Hyperlipidemia, unspecified (principal); I10 Essential (primary) hypertension
CPT/HCPCS: 36415; 80053; 80061; 83735

== ENCOUNTER 2020-12-31 00:56 | Outpatient (CLI) | payer OTHER, SELFPAY ==
--- NOTE | 2020-12-31 08:36 | DI.RAD_ITS ---
Exam(s) XR THORACIC SPINE COMPLETE EXAM: XR THORACIC SPINE COMPLETE CLINICAL HISTORY: right thoracic pain,M54.6. TECHNIQUE: 2D digital imaging was performed. COMPARISON: CR XR lumbar spine complete from 01/07/2019 performed December 2018 were reviewed. FINDINGS: There are no compression fractures nor listhesis of the thoracic vertebral bodies. No prominent disc space narrowing although there is some anterior osseous lipping at the lower disc spaces. No osseou s lesions seen. Degenerative disc disease in the lower cervical spine incidentally noted. No scolio sis in the thoracic spine. No abnormal widening of the paraspinal lines. No obvious osseous lesions evident. IMPRESSION: No significant radiograph findings in the thoracic spinal column. DATA REPOSITORY: RADIATION DOSE DELIVERED:
== END 2020-12-31 01:16 ==
PROVIDERS: PCP Family Medicine; Visit Provider Family Medicine
DX: M54.6 Pain in thoracic spine (principal)
CPT/HCPCS: 72072

== ENCOUNTER 2021-06-02 13:42 | Outpatient (REF) | payer OTHER, SELFPAY ==
[2021-06-03 14:35] LABS: Chlamydia Result Negative (Negative); GC Result Negative (Negative)
== END 2021-06-02 13:43 | disposition home or self-care (01) ==
LOC: LBN 13:42
PROVIDERS: PCP Family Medicine; Visit Provider Family Medicine
DX: N94.89 Other specified conditions associated with female genital organs and menstrual cycle (principal)
CPT/HCPCS: 87491; 87591; 87480; 87510; 87660

== ENCOUNTER 2021-08-31 12:27 | Inpatient (IN) | payer MEDICARE, SELFPAY ==
[2021-08-31] VITALS (31 sets, daily range): BP systolic 111–182; BP diastolic 54–92; PULSE 68–89; RESP 13–28; TEMP 36.8–37.2; O2SAT 94–99
--- NOTE | 2021-08-31 | DI.MRI_ITS ---
Exam(s) MR BRAIN WO EXAM: MR BRAIN WO CLINICAL HISTORY: TIA vs CVA TECHNIQUE: Multiplanar multisequence MRI of the brain was performed. COMPARISON: No exams were available for comparison FINDINGS: There are changes of moderate generalized cerebral atrophy. There are multiple focal areas of abnor mal signal in periventricular and subcortical white matter sparing the corpus callosum, consistent wi th microvascular ischemic changes. . The orbital and temporal bone structures appear intact as does the pituitary. Diffusion weighted imaging shows no evidence of infarction. Susceptibility weighted imaging shows no evidence of intracranial hemorrhage. There is normal flow void in the [place] vasculature. IMPRESSION: No evidence of acute process. No evidence of acute or subacute cerebral infarction. DATA REPOSITORY:
--- NOTE | 2021-08-31 12:15 | RT.EKG_ITS ---
APPROVED REPORT Exam: Resting ECG Reason for Exam: stroke Patient Location: E HR:81 bpm ECG Measurements Heart Rate 81 AXIS VA 187 P 70 QRSd 111 QRS -6 QT 319 T [id number] QTc 370 Conclusion Sinus rhythm...normal P axis, V-rate 60- 99 Low voltage, precordial leads...precordial leads <1.0mV Physician: no stemi
--- NOTE | 2021-08-31 12:15 | DI.CT_ITS ---
Exam(s) CT BRAIN NECK CTA EXAM: CT BRAIN NECK CTA CLINICAL HISTORY: stoke, right sided deficits. TECHNIQUE: Imaging Protocol: Axial CT angiography was performed with multi-slice acquisition and mu lti-planar and/or 3D reconstructions. CONTRAST MATERIAL: Intravenous: Omnipaque 350 Contrast volume:structured data in ml COMPARISON: No exams were available for comparison FINDINGS: CT angiography of the cervical cranial region was performed according to the usual protocol with intr avenous infusion of 85 cc of Omnipaque 350.. Initial noncontrast scanning of the head is unremarkable except for moderate changes of cerebral atro phy. Visualized lung apices are clear. Visualized portions of thoracic aorta and pulmonary arterial circul ation are unremarkable. There is no evidence of a cervical mass or adenopathy. The tracheal laryngeal structures appear intact. The common carotid arteries show mild calcified atheromatous plaque throughout the course to the leve l of the carotid bifurcation. There is dense calcified plaque at the carotid bifurcations bilaterall y. There is a less than 50 percent luminal diameter stenosis of the proximal right internal carotid ivon ry. Remainder of extracranial right internal carotid artery appears intact. There is a near occlusion of the proximal left internal carotid artery, the vessel reconstitutes abov e this level and is otherwise unremarkable in its superior cervical course. The vertebral arteries are not well seen near their origins period otherwise, the vertebral arteries in their cervical course are within normal limits except for mild calcified atheromatous plaque at mu ltiple sites, there is a less than 50 percent luminal diameter stenosis of the mid right vertebral ar norma period. The cavernous portions of the internal carotid arteries show less than [address] enosis bilaterally secondary to calcified atheromatous plaque. No aneurysm or dissection seen.. Intracranial vertebral arteries and basilar artery appear normal with no evidence of aneurysm, stenos is or dissection. No aneurysm identified in the region of the [id number]. The anterior, middle, and posterior cer ebral arteries and major branches appear intact with no evidence of aneurysm, stenosis, or dissection . No enhancing brain lesion identified on 5 minutes delayed images.. 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 Mild atheromatous changes elsewhere as described above. RADIATION DOSE DELIVERED: 1,963.19mGy.cmTotal DLP 1,963.19mGy.cm Total DLP 42.1mGy CTDIvol DATA REPOSITORY: All CT scans at this facility are submitted to the National Radiology Data Registry (NRDR) Dose Index Registry (DIR) with the [employer] ([employer]). RADIATION OPTIMIZATION: All CT scans at this facility use at least one of these dose optimization te chniques: automated exposure control; mA and/or kV adjustment per patient size (includes targeted exa ms where dose is matched to clinical indication); or iterative reconstruction.
[2021-08-31] MEDS: Omnipaque 350 MG/ML 100 ML BTL IJ (12:31)
[2021-08-31 12:53] LABS: Abs Immature Grans 0.04 10^3/uL (0.0-0.06); Absolute Basophil Count 0.03 10^3/uL (0.0-0.2); Absolute Eosinophil Count 0.24 10^3/uL (0.0-0.7); Absolute Lymphocyte Count 1.99 10^3/uL (1.2-3.4); Absolute Monocyte Count 0.62 10^3/uL (0.1-0.8); Absolute Neutrophil Count 5.77 10^3/uL (1.2-6.7); Basophils % 0.3; Eosinophils % 2.8; HCT 38.7 % (36.0-46.0); HGB 12.7 g/dL (11.2-15.7); Immature Grans % 0.5; Lymphocytes % 22.9; MCH 30.8 pg (27.0-33.0); MCHC 32.8 % (32.0-36.0); MCV 93.9 fL (80-95); MPV 9.4 fL (8.0-11.0); Monocytes % 7.1; Neutrophils % 66.4; Nucleated RBC 0 %; Platelet Count 204 10^3/uL (130-400); RBC 4.12 10^6/uL (3.93-5.22); RDW 13.7 % (11.7-14.6); RDW-SD 47.4 fL; WBC 8.69 10^3/uL (4.4-10.8)
[2021-08-31 13:06] LABS: INR 1.1 (0.9-1.1); PTT Activated 23.7 sec (21.0-27.5); Prothrombin Time 10.7 sec (9.3-11.0)
[2021-08-31 13:27] LABS: ALT 30 U/L (14-59); AST 13 U/L (15-37); Albumin 3.5 g/dL (3.4-5.0); Alkaline Phosphatase 112 U/L (46-116); Anion Gap 8.9 mmol/L (3-11); BUN 20 mg/dL (7-18); Bilirubin, Total 0.3 mg/dL (0.2-1.0); CO2 26.1 mmol/L (21.0-32.0); CREATININE 0.7 mg/dL (0.55-1.02); Calcium 8.4 mg/dL (8.5-10.1); Chloride 101 mmol/L (98-107); Glucose 150 mg/dL (74-106); Potassium 3.2 mmol/L (3.5-5.1); Sodium 136 mmol/L (136-145); TSH (W/Ref FT4) 2.48 uIU/mL (0.36-3.74); Total Protein 6.9 g/dL (6.4-8.2); Troponin I < 50 ng/L (<or=60)
--- NOTE | 2021-08-31 13:27 | ED.GENADUL_ITS ---
Discharge Plan Disposition Patient Disposition: [facility] INPATIENT Condition: Improving Discharge Details Chief Complaint: CVA/TIA Clinical Impression: Stroke Admit Date/Time: 08/31/21 14:46 Admit Provider: Sabina Win Attending Provider: Sabina Win Primary Care Provider: Megan Jimenez ED Provider: Kerwin Castro Discharge Data Discharge Date/Time-TO BE ENTERED AT DEPARTURE: 08/31/21 16:00 Medical Decision Making 12:22 66-year-old female with a past medical history of hypertension, high cholesterol, mild obesity who presents today for evaluation of stroke. At 11:30 AM patient demonstrated sudden onset slurred speech, right-sided paralysis of her upper and lower extremity. EMS called and the patient was immediately brought to the ER via EMS. Family denies any history of previous stroke. Upon arrival patient denies any headache falls or trauma. She does complain of weakness on the right side. She admits to difficulty speaking. No other complaints at this time. Patient is not on any blood thinners. Physical exam demonstrates notable right-sided deficits, NIH stroke scale of 12 secondary to dysarthria, attention/inattention, weakness on the right, and decreased sensation. Concern is for notable stroke. We will send immediately to CT scan, evaluate potential for tPA, monitor closely and reassess. [address] scan/CTA of the head neck is negative for acute process aside for evidence of notable carotid artery stenosis with good reperfusion distally to the near complete stenosis on the left. When the patient returned from CAT scan she had a notable improvement of her symptoms, she is now able to move her right upper and right lower extremity. She is able to speak clearly. She still does have moderate weakness of these extremities but it is notably improved from when she first arrived. We will page [facility] for potential tPA, will bring family into the discussion, will monitor closely and reassess. 1:20 PM Family still deciding on potential tPA. During the patient's time here she is continuing to demonstrate a notable improvement of her symptoms. Her symptoms continue to slowly resolve without intervention. I did contact Dr. Nicolas of [facility] neurology, and he does reiterate the risks and benefits of tPA as there does appear to be diminishing benefits as we move on in time, as well as diminishing benefit her symptoms improved. Patient is having a discussion with her family on the potential for tPA, and I have had a long discussion regarding the risks and benefit of this however they would like to make it a personal decision amongst himself. 1:55 PM Initially patient was thinking about tPA, however on my reassessment at 155 and repeat neurologic exam the patient has normal 5 out of 5 strength in the upper and lower extremities bilaterally. She is able to ambulate with a mild amount of unsteadiness but no ataxia. She has no dysdiadochokinesia, but does demonstrate mild dysmetria in the right hand only when trying to place her finger in the final 1 to 2 inches prior to point contact. She has clear speech, no facial asymmetry, and otherwise near complete resolution of her symptomatology. After a continued thorough discussion with the family through shared decision-making process understanding the risks and benefits, family has and patient has elected to hold off on tPA at this point and has declined it. We will give Plavix and aspirin load. Currently [facility] in the [facility] do not have any available beds. Neurology does recommend carotid vascular surgery management for the patient's left carotid. [facility] and [facility] currently do not have beds available for this. [facility] recommends calling back tomorrow for potential bed options. Hospitalist Dr. Win agrees with the plan, and has a the patient for admission. I have extensively reviewed the treatment plan with the patient. I have addressed all patient concerns at this time. I have also discussed the plan with the admitting physician and they agree with the current assessment and plan and have agreed to assume responsibility for the patient. All parties demonstrate verbal understanding and agreement with our assessment and plan at this time. The documentation in this chart was dictated using [employer] dictation software. Please excuse any dictation errors. FINDINGS: CT angiography of the cervical cranial region was performed according to the usual protocol with intravenous infusion of 85 cc of Omnipaque 350.. Initial noncontrast scanning of the head is unremarkable except for moderate changes of cerebral atrophy. Visualized lung apices are clear. Visualized portions of thoracic aorta and pulmonary arterial circulation are unremarkable. There is no evidence of a cervical mass or adenopathy. The tracheal laryngeal structures appear intact. The common carotid arteries show mild calcified atheromatous plaque throughout the course to the level of the carotid bifurcation. There is dense calcified plaque at the carotid bifurcations bilaterally. There is a less than 50 percent luminal diameter stenosis of the proximal right internal carotid artery. Remainder of extracranial right internal carotid artery appears intact. There is a near occlusion of the proximal left internal carotid artery, the vessel reconstitutes above this level and is otherwise unremarkable in its superior cervical course. The vertebral arteries are not well seen near their origins period otherwise, the vertebral arteries in their cervical course are within normal limits except for mild calcified atheromatous plaque at multiple sites, there is a less than 50 percent luminal diameter stenosis of the mid right vertebral artery period. The cavernous portions of the internal carotid arteries show less than 50 percent luminal diameter stenosis bilaterally secondary to calcified atheromatous plaque. No aneurysm or dissection seen.. Intracranial vertebral arteries and basilar artery appear normal with no evidence of aneurysm, stenosis or dissection. No aneurysm identified in the region of the [id number]. The anterior, middle, and posterior cerebral arteries and major branches appear intact with no evidence of aneurysm, stenosis, or dissection. No enhancing brain lesion identified on 5 minutes delayed images.. IMPRESSION: There is a near occlusion of the proximal left internal carotid artery by calcified atheromatous plaque. Mild atheromatous changes elsewhere as described above. HPI General Date/Time Provider Initiated Documentation: 08/31/21 12:46 . HPI Narrative: 66-year-old female with a past medical history of hypertension, high cholesterol, mild obesity who presents today for evaluation of stroke. At 11:30 AM patient demonstrated sudden onset slurred speech, right-sided paralysis of her upper and lower extremity. EMS called and the patient was immediately brought to the ER via EMS. Family denies any history of previous stroke. Upon arrival patient denies any headache falls or trauma. She does complain of weakness on the right side. She admits to difficulty speaking. No other complaints at this time. Patient is not on any blood thinners. Related Data Home Medications Medication Instructions Recorded Confirmed aspirin 81 mg chewable tablet 81 mg PO DAILY 01/07/19 08/31/21 mupirocin calcium 2 % topical cream 1 applic TOPICAL BID PRN gm 01/07/19 08/31/21 cholecalciferol (vitamin D3) 25 1,000 unit PO DAILY 07/08/19 08/31/21 mcg (1,000 unit) capsule clobetasol-emollient 0.05 % 2 - 4 gm TOPICAL BID PRN #3 tube 02/25/20 08/31/21 topical cream zinc acetate 50 mg (zinc) capsule 50 mg PO DAILY 08/25/20 08/31/21 ascorbate calcium (vitamin C) 500 500 mg PO DAILY 11/06/20 08/31/21 mg tablet amlodipine 5 mg tablet 5 mg PO DAILY #90 tab-cap 12/24/20 08/31/21 atorvastatin 40 mg tablet 40 mg PO DAILY #90 tab-cap 12/24/20 08/31/21 losartan 100 mg tablet 100 mg PO DAILY #90 tab-cap 12/24/20 08/31/21 propranolol 60 mg tablet 60 mg PO BID PRN #180 tab 12/24/20 08/31/21 chlorthalidone 25 mg tablet 25 mg PO DAILY #90 tab 05/31/21 08/31/21 triamcinolone acetonide 0.1 % 1 applic TOPICAL BID PRN #80 gm 06/02/21 08/31/21 topical ointment Previous Rx's Medication Instructions Recorded clobetasol-emollient 0.05 % 2 - 4 gm TOPICAL BID PRN #3 tube 02/25/20 topical cream amlodipine 5 mg tablet 5 mg PO DAILY #90 tab-cap 12/24/20 atorvastatin 40 mg tablet 40 mg PO DAILY #90 tab-cap 12/24/20 losartan 100 mg tablet 100 mg PO DAILY #90 tab-cap 12/24/20 propranolol 60 mg tablet 60 mg PO BID PRN #180 tab 12/24/20 chlorthalidone 25 mg tablet 25 mg PO DAILY #90 tab 05/31/21 triamcinolone acetonide 0.1 % 1 applic TOPICAL BID PRN #80 gm 06/02/21 topical ointment Allergies Allergy/AdvReac Type Severity Reaction Status Date / Time erythromycin base Allergy Intermediate RASH, Verified 08/31/21 13:09 HIVES, BLISTERS latex Allergy Intermediate RASH Verified 08/31/21 13:09 Penicillins Allergy Intermediate HIVES Verified 08/31/21 13:09 Sulfa (Sulfonamide Allergy Intermediate SKIN RASH Verified 08/31/21 13:09 Antibiotics) Tetracyclines Allergy Intermediate RASH, Verified 08/31/21 13:09 HIVES, BLISTERS neomycin Allergy Unknown Verified 08/31/21 13:09 General Stated Complaint: CVA/TIA ALEX: 2 Review of Systems All systems reviewed & are unremarkable except as noted in HPI and below PFSH All Active Problems (Updated 08/31/21 @ 20:04 by Kerwin Castro DO) Stroke (Chronic) Discharge planning issues (Acute) DVT prophylaxis (Acute) Occlusion of left internal carotid artery (Acute) TIA (transient ischemic attack) (Acute) Hypertrophic lichen planus of vulva (Acute) Colon polyp, hyperplastic (Acute ~11/2020) Thoracic back pain (Acute) Hyperlipidemia (Acute) Diverticula of colon (Acute) Conductive hearing loss in right ear (Acute 04/12/18) Arthritis (Acute) Chronic serous otitis media of right ear (Acute) 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 Tiny Disc herniation w/o nerve impingement Insomnia (Chronic) Gastroesophageal reflux disease with esophagitis (Chronic) Cervical spondylosis (Chronic 07/20/03) 2004 MRI C5-6 neural foraminal narrowing 2007 MRI DDD and C5-6 C6-7 neuroforaminal narrowing Medical History Abnormal cervical Papanicolaou smear 07/20/02 +ASCUS; neg HPV Carpal tunnel syndrome Cervical spondylosis Conductive hearing loss of both ears Dermatitis Bx showing dermatitis and epidermal spongiosum Diarrhea Essential hypertension Fibrocystic breast disease GERD (gastroesophageal reflux disease) Hx of breast cancer Insomnia Low back pain MRI 2007 DDD L4-5. Tiny Disc herniation w/o nerve impingement Mastoiditis Menopausal syndrome Migraine Pain in thoracic spine Pain in thumb joint with movement left thumb pain w/ abnormal x-rays 2006 Pain in thumb joint with movement Photosensitization due to sun tanning bed Hx Postmenopausal bleeding 07/20/03 neg endo bx fibroid on pelvic u/s Psoriasis Rotator cuff syndrome Rotator cuff syndrome MRI of right shoulder w/partial thickness tear of supraspinatus, moderate atrophy and fluid in the bursa. S/p surgery Smoker Smoker Wart Surgical History Breast, Lumpectomy (~06/2004) Colonoscopy - MAC (~12/2005) NEG History of colonoscopy (~12/08/20) Open Carpal Tunnel release (~06/2004) PROCEDURES MRI right shoulder with partial thickness tear of supraspinatus, moderate atrophy and fluid in the bursa. S/P surgery. S/P breast lumpectomy 08/21/03 S/P carpal tunnel release 08/21/03 Family History Mother , 72 Essential hypertension Heart disease Hyperlipidemia Stroke Father , 69 Essential hypertension Heart disease CHF Hyperlipidemia Myocardial infarction Stroke Brother , 60 Essential hypertension Heart disease Hyperlipidemia Stroke Sister Essential hypertension CHF (congestive heart failure) Heart disease Hyperlipidemia Maternal Grandfather No problems noted. Paternal Grandfather No problems noted. Maternal Grandmother No problems noted. Paternal Grandmother No problems noted. Sister Essential hypertension Lung cancer Sister Essential hypertension Daughter No problems noted. Daughter No problems noted. Social History Smoking/Tobacco Use Status: Former Tobacco Use tobacco type: cigarettes Quit Date: 08/21/17 Tobacco: How many years used: 35 Smoking risk assessment performed?: Yes Alcohol Intake: current Alcohol Intake frequency: a few times a week Alcohol type: wine and hard liquor Drug use: Never Substance use type: does not use Caregiver/Support person: No Household members: spouse Housing: house Communication Needs: Hard of Hearing Do you need help understanding health information?: Rarely Pets and animals: No Sexually active: Yes Do you think of yourself as: straight/heterosexual Current gender identity: female What is your relationship status?: How often do you talk on the phone with friends or family?: twice per week How often do you get together with friends or relatives?: twice per week How often do you attend catholic or anglican services?: 1-3 times per year Do you belong to any clubs or organized social groups?: no Panel score (0-1 are the most socially isolated patients): 2 What type of physical activity do you participate in: none Duration: 15-30 minutes/day Frequency: 3-4 times per week Sheba/Tenriism: Adventist Special sheba needs: No Seatbelt use: always Helmet use: No Drive intox or ride w/intox contract driver: No Do you feel safe at home: Yes Do you feel safe in your relationship?: Yes Exam Narrative Exam Narrative: 1.Const: Well-nourished, Well-developed, appearing stated age 2.Eyes: PERRL, no conjunctival injection, and symmetrical lids. 3.ENT: Atraumatic external nose and ears. Moist MM. Neck: Symmetric, trachea midline, No thyromegaly. Notable right-sided facial droop 4.CVS: +S1/S2, No murmurs or gallops. Peripheral pulses 2+ and equal in all extremities. Brisk capillary refill in all extremities. 5.RESP: Unlabored respiratory effort. Clear to auscultation bilaterally. No wheezes rales or rhonchi 6.GI: Soft, Nontender/Nondistended, No hepatosplenomegaly. No guarding or rebound. 7.MSK: Normocephalic/Atraumatic, Extremities w/o deformity or ttp No cyanosis or clubbing 8.Skin: Warm, Dry. No rashes or lesions. 9.Neuro: Notable right-sided facial droop, sparing the forehead. Mild dys arthria. Notable weakness of the right upper and right lower extremity with about a 1 out of 5 strength for both of these. Normal 5 out of 5 strength for left upper extremity. No significant visual deficits. Unable to ambulate. Normal movement of the left upper and lower extremity. Notable listing to the right side. 10.Psych: (AAO) x3. Notably anxious Course Vital Signs Vital signs: Vital Signs Respiratory Rate 19 08/31/21 13:02 Respiratory Rate 19 08/31/21 13:02 Respiratory Effort Non-Labored 08/31/21 13:02 Respiratory Depth Normal 08/31/21 13:02 Respiratory Pattern Normal 08/31/21 13:02 Lab/Test Results Lab/Test Results: Laboratory Tests Range/Units 08/31/21 08/31/21 12:45 12:45 WBC (4.4-10.8) 10^3/uL 8.69 RBC (3.93-5.22) 10^6/uL 4.12 Hgb (11.2-15.7) g/dL 12.7 Hct (36.0-46.0) % 38.7 MCV (80-95) fL 93.9 MCH (27.0-33.0) pg 30.8 MCHC (32.0-36.0) % 32.8 RDW (11.7-14.6) % 13.7 Plt Count (130-400) 10^3/uL 204 MPV (8.0-11.0) fL 9.4 Immature Gran % 0.5 Neutrophils % 66.4 Lymphocytes % 22.9 Monocytes % 7.1 Eosinophils % 2.8 Basophils % 0.3 Nucleated RBC % % 0 Absolute Neutrophils (1.2-6.7) 10^3/uL 5.77 Absolute Lymphocytes (1.2-3.4) 10^3/uL 1.99 Absolute Monocytes (0.1-0.8) 10^3/uL 0.62 Absolute Eosinophils (0.0-0.7) 10^3/uL 0.24 Absolute Basophils (0.0-0.2) 10^3/uL 0.03 PT (9.3-11.0) sec 10.7 INR (0.9-1.1) 1.1 APTT (21.0-27.5) sec 23.7 Critical Care Time Critical Care Time Critical Care Time: Yes Total Critical Care Time: 45 Attestation: Upon my evaluation, this patient had a high probability of imminent or life-threatening deterioration, which required my direct attention, intervention, and personal management. I have personally provided 45 minutes of critical care time exclusive of time spent on separately billable procedures. Time includes review of laboratory data, radiology results, discussion with consultants, and monitoring for potential decompensation. Interventions were performed as documented. PAWSS Have you Been Recently Intoxicated or Drunk Within the Last 30 days?: No Have you Ever Experienced Previous Episodes of Alcohol Withdrawal?: No Have you ever Experienced Withdrawal Seizures?: No Have you ever Experienced Delirium Tremens(DT)s?: No Have you ever undergone Alcohol Rehabilitation Treatment (i.e, inpt ot outpat ient treatment programs)?: No Have you ever Experienced Blackouts?: No Have you ever Combined Alcohol with other Downers within the last 90 days?: No Have you ever Combined Alcohol with any other Substance of Abuse during the last 90 days?: No Positive Blood Alcohol level on Presentation? [PCS.BAL]: No Evidence of Increased Autonomic Activity (i.e. HR>120, tremor, sweating, agitation, nausea)?: No Result: 0
[2021-08-31 13:29] LABS: Ammonia < 10 umol/L (11-32)
[2021-08-31] MEDS: Aspirin 81 MG CHEW 324 MG CH (14:17)
[2021-08-31] MEDS: Clopidogrel 300 MG TAB PO (14:18)
[2021-08-31 14:39] LABS: Bilirubin Negative (Negative); Blood Trace-intact (Negative); Clarity Clear (Clear); Glucose Negative (Negative); Ketones Negative (Negative); Leukocyte Esterase Trace (Negative); Nitrite Negative (Negative); Urobilinogen 0.2 EU/dL (Up TO 0.2); pH 5.5 (5-8)
[2021-08-31 14:45] LABS: Bacteria Few HPF (Negative); C & S Indicated? No; Casts Negative LPF (Negative); Crystals Negative HPF (Negative); Epithelial Cells Rare HPF (Negative); Mucus Negative (Negative); Other Cells Negative (Negative); RBC 0-2 HPF (0-2); WBC 0-2 HPF (0-5)
[2021-08-31 15:02] LABS: Source Nasal/Nares
--- NOTE | 2021-08-31 16:20 | HPE_ITS ---
Date of service: 08/31/21 Time of Service: 16:21 Assessment and Plan Assessment and plan (1) TIA (transient ischemic attack): Status: Acute Assessment and plan: In setting of near occlusion of L internal carotid A. Continue asa/plavix. Increase dose of atorvastatin. Permissive hypertension tonight. Evaluated by Dr Cruz of neurology, who feels that the patient should be monitored in the hospital for at least 48 hrs. Will contact [facility] vascular surgery in hopes of transfer or solidifying a ref erral for endarterectomy. Should symptoms worsen tonight, will need initiation of heparin drip, per neuro. Await echo, A1C, FLP. (2) Occlusion of left internal carotid artery: Status: Acute Assessment and plan: As above (3) Hyperlipidemia: Status: Acute Assessment and plan: As above (4) Essential hypertension: Status: Chronic Assessment and plan: As above (5) DVT prophylaxis: Status: Acute Assessment and plan: SC enoxaparin (6) Discharge planning issues: Status: Acute Assessment and plan: Full code History of Present Illness History of Present Illness Chief Complaint: Sudden onset of R-sided weakness, dysarthria, already better Narrative: Ms Garsia is a 66 year old female with PMHx of hypertension, hyperlipidemia, migraines, GERD, who was brought to [facility] ED by ambulance with sudden onset (around 11 or 12 pm) of R-sided weakness, slurred speech, and R facial droop. The patient felt wobbly on her feet. The patient's NIH stroke scale was 8-9 on presentation to the ED, and [facility] neurology recommended TPA. However, the patient's symptoms started to quickly resolve, and soon after, her NIH stroke scale was 1-2. TPA was not given due to rapid improvement. The patient was found to have a significant left internal carotid artery occlusion. No beds were available at [facility] or [facility] today, but [facility] had recommended we call back tomorrow to arrange a possible endarterectomy. The patient feels nearly completely back to normal. Currently she has a headache and nausea. 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 Tiny Disc herniation w/o nerve impingement Insomnia (Chronic) Gastroesophageal reflux disease with esophagitis (Chronic) Cervical spondylosis (Chronic 07/20/03) 2003 MRI C5-6 neural foraminal narrowing 2007 MRI DDD and C5-6 C6-7 neuroforaminal narrowing Medical History Abnormal cervical Papanicolaou smear 07/20/02 +ASCUS; neg HPV Carpal tunnel syndrome Cervical spondylosis Cervical spondylosis (07/20/03) 2003 MRI C5-6 neural foraminal narrowing 2007 MRI DDD and C5-6 C6-7 neuroforaminal narrowing Conductive hearing loss in right ear (04/12/18) Conductive hearing loss of both ears Dermatitis Bx showing dermatitis and epidermal spongiosum Diarrhea Essential hypertension Essential hypertension (09/18/13) Fibrocystic breast disease Gastroesophageal reflux disease with esophagitis GERD (gastroesophageal reflux disease) Hx of breast cancer Insomnia Insomnia Low back pain MRI 2007 DDD L4-5. Tiny Disc herniation w/o nerve impingement Low vision, one eye (04/01/13) Lumbago without sciatica MRI 2007 DDD L4-5. Tiny Disc herniation w/o nerve impingement Mastoiditis Menopausal syndrome Migraine Migraine Pain in thoracic spine Pain in thumb joint with movement left thumb pain w/ abnormal x-rays 2006 Pain in thumb joint with movement Photosensitization due to sun tanning bed Hx Postmenopausal bleeding 07/20/03 neg endo bx fibroid on pelvic u/s Psoriasis Psoriasis Rotator cuff syndrome Rotator cuff syndrome MRI of right shoulder w/partial thickness tear of supraspinatus, moderate atrophy and fluid in the bursa. S/p surgery Sensorineural hearing loss, unilateral, left ear, with restricted hearing on the contralateral side (04/12/18) Smoker Smoker Squamous cell cancer of buccal mucosa (09/04/17) S/P SURGERY Tubular adenoma (01/04/16) Wart Surgical History Breast, Lumpectomy (~06/2004) Colonoscopy - MAC (~12/2005) NEG History of colonoscopy (~12/08/20) Open Carpal Tunnel release (~06/2004) PROCEDURES MRI right shoulder with partial thickness tear of supraspinatus, moderate atrophy and fluid in the bursa. S/P surgery. S/P breast lumpectomy 08/21/03 S/P carpal tunnel release 08/21/03 Family History Mother , 72 Essential hypertension Heart disease Hyperlipidemia Stroke Father , 69 Essential hypertension Heart disease CHF Hyperlipidemia Myocardial infarction Stroke Brother , 60 Essential hypertension Heart disease Hyperlipidemia Stroke Sister Essential hypertension CHF (congestive heart failure) Heart disease Hyperlipidemia Maternal Grandfather No problems noted. Paternal Grandfather No problems noted. Maternal Grandmother No problems noted. Paternal Grandmother No problems noted. Sister Essential hypertension Lung cancer Sister Essential hypertension Daughter No problems noted. Daughter No problems noted. Social History Smoking/Tobacco Use Status: Former Tobacco Use tobacco type: cigarettes Quit Date: 08/21/17 Tobacco: How many years used: 35 Smoking risk assessment performed?: Yes Alcohol Intake: current Alcohol Intake frequency: a few times a week Alcohol type: wine and hard liquor Drug use: Never Substance use type: does not use Caregiver/Support person: No Household members: spouse Housing: house Communication Needs: Hard of Hearing Do you need help understanding health information?: Rarely Pets and animals: No Sexually active: Yes Do you think of yourself as: straight/heterosexual Current gender identity: female What is your relationship status?: How often do you talk on the phone with friends or family?: twice per week How often do you get together with friends or relatives?: twice per week How often do you attend mandaen or christianity services?: 1-3 times per year Do you belong to any clubs or organized social groups?: no Panel score (0-1 are the most socially isolated patients): 2 What type of physical activity do you participate in: none Duration: 15-30 minutes/day Frequency: 3-4 times per week Sheba/Mormon: Yazidism Special sheba needs: No Seatbelt use: always Helmet use: No Drive intox or ride w/intox national van truck driver: No Do you feel safe at home: Yes Do you feel safe in your relationship?: Yes Meds Allergies and Home Medications Allergies Allergy/AdvReac Type Severity Reaction Status Date / Time erythromycin base Allergy Intermediate RASH, Verified 08/31/21 13:09 HIVES, BLISTERS latex Allergy Intermediate RASH Verified 08/31/21 13:09 Penicillins Allergy Intermediate HIVES Verified 08/31/21 13:09 Sulfa (Sulfonamide Allergy Intermediate SKIN RASH Verified 08/31/21 13:09 Antibiotics) Tetracyclines Allergy Intermediate RASH, Verified 08/31/21 13:09 HIVES, BLISTERS neomycin Allergy Unknown Verified 08/31/21 13:09 Home Medications Medication Instructions Recorded Confirmed Type aspirin 81 mg chewable tablet 81 mg PO DAILY 01/07/19 08/31/21 History mupirocin calcium 2 % topical cream 1 applic TOPICAL BID PRN gm 01/07/19 08/31/21 History cholecalciferol (vitamin D3) 25 1,000 unit PO DAILY 07/08/19 08/31/21 History mcg (1,000 unit) capsule clobetasol-emollient 0.05 % 2 - 4 gm TOPICAL BID PRN #3 tube 02/25/20 08/31/21 Rx topical cream zinc acetate 50 mg (zinc) capsule 50 mg PO DAILY 08/25/20 08/31/21 History ascorbate calcium (vitamin C) 500 500 mg PO DAILY 11/06/20 08/31/21 History mg tablet amlodipine 5 mg tablet 5 mg PO DAILY #90 tab-cap 12/24/20 08/31/21 Rx atorvastatin 40 mg tablet 40 mg PO DAILY #90 tab-cap 12/24/20 08/31/21 Rx losartan 100 mg tablet 100 mg PO DAILY #90 tab-cap 12/24/20 08/31/21 Rx propranolol 60 mg tablet 60 mg PO BID PRN #180 tab 12/24/20 08/31/21 Rx chlorthalidone 25 mg tablet 25 mg PO DAILY #90 tab 05/31/21 08/31/21 Rx triamcinolone acetonide 0.1 % 1 applic TOPICAL BID PRN #80 gm 06/02/21 08/31/21 Rx topical ointment Exam Narrative Exam Narrative: General: Very pleasant middle-aged female who appears comfortable sitting up in bed, no visible facial droop, fluent speech, A&Ox3, NAD Neurological: A&Ox3, CN II-XII intact, finger to nose intact, sensory intact, no pronator drift, 5/5 strength in BLEs, 4+ in RUE, 5 LUE, 2+DTRs bilaterally, plantar response flexion, subtle hesitancy in rapid alternating movements on the R Psychiatric: Appropriate speech pattern/content Skin: Visible skin intact HEENT: Atraumatic, normocephalic, EOMI, dry MM, clear oropharynx, no submandibular or cervical lymphadenopathy, no goiter or JVD; no carotid bruit Cardiovascular: RRR, no m/r/g Lungs: CTAB Gastrointestinal: soft, nontender, nondistended Genitourinary: deferred Extremities: no edema/clubbing/cyanosis BLEs, 2+ Pedal pulses B Results Imaging Additional studies: CTA head/neck; There is a near occlusion of the proximal left internal carotid artery by calcified atheromatous plaque. Mild atheromatous changes elsewhere as described above. MRI brain; No evidence of acute process. No evidence of acute or subacute cerebral infarction. EKG: HR 80, NSR, inferolateral ST segment depressions Labs Result diagrams: 08/31/21 12:45 08/31/21 12:45 Labs: Laboratory Results - last 24 hr 08/31/21 08/31/21 08/31/21 12:45 12:45 12:45 WBC 8.69 RBC 4.12 Hgb 12.7 Hct 38.7 MCV 93.9 MCH 30.8 MCHC 32.8 RDW 13.7 Plt Count 204 MPV 9.4 Immature Gran % 0.5 Neutrophils % 66.4 Lymphocytes % 22.9 Monocytes % 7.1 Eosinophils % 2.8 Basophils % 0.3 Nucleated RBC % 0 Absolute Neutrophils 5.77 Absolute Lymphocytes 1.99 Absolute Monocytes 0.62 Absolute Eosinophils 0.24 Absolute Basophils 0.03 PT 10.7 INR 1.1 APTT 23.7 Sodium 136 Potassium 3.2 L Chloride 101 Carbon Dioxide 26.1 Anion Gap 8.9 BUN 20 H Creatinine 0.7 Estimated GFR/1.73 m2 >= 60.00 Glucose 150 H Calcium 8.4 L Total Bilirubin 0.3 AST 13 L ALT 30 Alkaline Phosphatase 112 Ammonia Troponin I < 50 Total Protein 6.9 Albumin 3.5 TSH 2.48 Urine Color Urine Clarity Urine pH Ur Specific [place] Urine Protein Urine Ketones Urine Blood Urine Nitrite Urine Bilirubin Urine Urobilinogen Ur Leukocyte Esterase Urine RBC Urine WBC Ur Epithelial Cells Urine Crystals Urine Bacteria Urine Casts Urine Mucus Urine Other Ur Culture Indicated? Urine Glucose COVID-19 Source 08/31/21 08/31/21 08/31/21 12:53 14:26 14:56 WBC RBC Hgb Hct MCV MCH MCHC RDW Plt Count MPV Immature Gran % Neutrophils % Lymphocytes % Monocytes % Eosinophils % Basophils % Nucleated RBC % Absolute Neutrophils Absolute Lymphocytes Absolute Monocytes Absolute Eosinophils Absolute Basophils PT INR APTT Sodium Potassium Chloride Carbon Dioxide Anion Gap BUN Creatinine Estimated GFR/1.73 m2 Glucose Calcium Total Bilirubin AST ALT Alkaline Phosphatase Ammonia < 10 L Troponin I Total Protein Albumin TSH Urine Color Yellow Urine Clarity Clear Urine pH 5.5 Ur Specific [place] 1.010 Urine Protein Negative Urine Ketones Negative Urine Blood Trace-intact H Urine Nitrite Negative Urine Bilirubin Negative Urine Urobilinogen 0.2 Ur Leukocyte Esterase Trace H Urine RBC 0-2 Urine WBC 0-2 Ur Epithelial Cells Rare Urine Crystals Negative Urine Bacteria Few Urine Casts Negative Urine Mucus Negative Urine Other Negative Ur Culture Indicated? No Urine Glucose Negative COVID-19 Source Nasal/Nares Last Vital Signs Pulse 82 08/31/21 16:18 Resp 22 08/31/21 16:18 BP 161/65 H 08/31/21 16:18 Pulse Ox 96 08/31/21 16:18 PAWSS Have you Been Recently Intoxicated or Drunk Within the Last 30 days?: No Have you Ever Experienced Previous Episodes of Alcohol Withdrawal?: No Have you ever Experienced Withdrawal Seizures?: No Have you ever Experienced Delirium Tremens(DT)s?: No Have you ever undergone Alcohol Rehabilitation Treatment (i.e, inpt ot o utpatient treatment programs)?: No Have you ever Experienced Blackouts?: No Have you ever Combined Alcohol with other Downers within the last 90 days?: No Have you ever Combined Alcohol with any other Substance of Abuse during the last 90 days?: No Positive Blood Alcohol level on Presentation? [PCS.BAL]: No Evidence of Increased Autonomic Activity (i.e. HR>120, tremor, sweating, agitation, nausea)?: No Result: 0
--- NOTE | 2021-08-31 16:43 | NCONE_ITS ---
Date of service: 08/31/21 Time of Service: 16:43 Assessment and Plan Assessment and plan (1) TIA (transient ischemic attack): Status: Acute (2) Left carotid stenosis: Status: Acute Assessment and plan: Ms. Garsia is a 66 year-old, right-handed woman with hypertension and hyperlipidemia admitted with a TIA manifested by transient right hemiparesis, expressive asphasia, and dysarthria secondary to a left carotid stenosis. Work-up: -TTE with bubble study if able -Telemetry -A1c -Lipid panel Medications: -aspirin 81mg daily for secondary stroke prevention -clopidogrel 75mg daily for secondary stroke prevention -atrovastatin 80mg daily for secondary stroke prevention Other: -Allow permissive hypertension -switch to IV heparin infusion + aspirin for any concern of recurrent TIA/stroke -consult with [facility] [place] [place] [facility] regarding plan for L ICA stenosis and recommended CEA History of Present Illness History of Present Illness Chief Complaint: TIA Narrative: Handedness: right. HPI: Ms. Garsia is a 66 year-old woman with HTN, HLD, buccal SCC, psoriasis, headaches, GERD, and cervical/lumbar stenosis. Just before lunch today, Ms. Garsia developed acute onset right hemiparesis involving the face, arm, and leg, along with difficulty getting her words out and slurred speech. EMS was called and she was transported to [facility] ER. Her BP was 160s. In the ER, she had rapid resolution and improvement of her symptoms such that she was not given tPA. She has undergone the work-up as below. She is already on aspirin 81mg daily + atorvastatin 40mg daily at baseline. She was given 300mg clopidogrel + 325mg ASA in the ER. Work-up: -CTH: no acute findings. I reviewed these images personally and this is my personal interpretation. -MRI brain: no acute findings. Moderate chronic vascular changes. I reviewed these images personally and this is my personal interpretation. -CTA head/neck: bulky L ICA plaque with significant stenosis. I reviewed these images personally and this is my personal interpretation. Consults Requesting physician: Sabina Win Review of Systems All systems reviewed & are unremarkable except as noted in HPI and below PFSH All Active Problems (Updated 08/31/21 @ 20:07 by Lisbet Cruz MD) Left carotid stenosis (Acute) Stroke (Chronic) Discharge planning issues (Acute) DVT prophylaxis (Acute) Occlusion of left internal carotid artery (Acute) TIA (transient ischemic attack) (Acute) Hypertrophic lichen planus of vulva (Acute) Colon polyp, hyperplastic (Acute ~11/2020) Thoracic back pain (Acute) Hyperlipidemia (Acute) Diverticula of colon (Acute) Conductive hearing loss in right ear (Acute 04/12/18) Arthritis (Acute) Chronic serous otitis media of right ear (Acute) 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 Tiny Disc herniation w/o nerve impingement Insomnia (Chronic) Gastroesophageal reflux disease with esophagitis (Chronic) Cervical spondylosis (Chronic 07/20/03) 2003 MRI C5-6 neural foraminal narrowing 2007 MRI DDD and C5-6 C6-7 neuroforaminal narrowing Medical History Abnormal cervical Papanicolaou smear 07/20/02 +ASCUS; neg HPV Carpal tunnel syndrome Cervical spondylosis Conductive hearing loss of both ears Dermatitis Bx showing dermatitis and epidermal spongiosum Diarrhea Essential hypertension Fibrocystic breast disease GERD (gastroesophageal reflux disease) Hx of breast cancer Insomnia Low back pain MRI 2007 DDD L4-5. Tiny Disc herniation w/o nerve impingement Mastoiditis Menopausal syndrome Migraine Pain in thoracic spine Pain in thumb joint with movement left thumb pain w/ abnormal x-rays 2006 Pain in thumb joint with movement Photosensitization due to sun tanning bed Hx Postmenopausal bleeding 07/20/03 neg endo bx fibroid on pelvic u/s Psoriasis Rotator cuff syndrome Rotator cuff syndrome MRI of right shoulder w/partial thickness tear of supraspinatus, moderate atrophy and fluid in the bursa. S/p surgery Smoker Smoker Wart Surgical History Breast, Lumpectomy (~06/2004) Colonoscopy - MAC (~12/2005) NEG History of colonoscopy (~12/08/20) Open Carpal Tunnel release (~06/2004) PROCEDURES MRI right shoulder with partial thickness tear of supraspinatus, moderate atrophy and fluid in the bursa. S/P surgery. S/P breast lumpectomy 08/21/03 S/P carpal tunnel release 08/21/03 Family History Mother , 72 Essential hypertension Heart disease Hyperlipidemia Stroke Father , 69 Essential hypertension Heart disease CHF Hyperlipidemia Myocardial infarction Stroke Brother , 60 Essential hypertension Heart disease Hyperlipidemia Stroke Sister Essential hypertension CHF (congestive heart failure) Heart disease Hyperlipidemia Maternal Grandfather No problems noted. Paternal Grandfather No problems noted. Maternal Grandmother No problems noted. Paternal Grandmother No problems noted. Sister Essential hypertension Lung cancer Sister Essential hypertension Daughter No problems noted. Daughter No problems noted. Social History Smoking/Tobacco Use Status: Former Tobacco Use tobacco type: cigarettes Quit Date: 08/21/17 Tobacco: How many years used: 35 Smoking risk assessment performed?: Yes Alcohol Intake: current Alcohol Intake frequency: a few times a week Alcohol type: wine and hard liquor Drug use: Never Substance use type: does not use Caregiver/Support person: No Household members: spouse Housing: house Communication Needs: Hard of Hearing Do you need help understanding health information?: Rarely Pets and animals: No Sexually active: Yes Do you think of yourself as: straight/heterosexual Current gender identity: female What is your relationship status?: How often do you talk on the phone with friends or family?: twice per week How often do you get together with friends or relatives?: twice per week How often do you attend sikh or spiritism services?: 1-3 times per year Do you belong to any clubs or organized social groups?: no Panel score (0-1 are the most socially isolated patients): 2 What type of physical activity do you participate in: none Duration: 15-30 minutes/day Frequency: 3-4 times per week Sheba/Yazidism: Zoroastrian Special sheba needs: No Seatbelt use: always Helmet use: No Drive intox or ride w/intox courtesy van driver: No Do you feel safe at home: Yes Do you feel safe in your relationship?: Yes Visit Medication and Allergies Active Medications Generic Name Dose Route Start Last Admin Trade Name Freq PRN Reason Stop Dose Admin Acetaminophen 0 mg 08/31/21 14:52 Acetaminophen 325 Mg Tab PO Q4H PRN PRN Al Hydrox/Mg Hydrox/Simethicone 30 ml 08/31/21 14:52 Mylanta Suspension 30 Ml Cup PO Q2H PRN PRN Aspirin 81 mg 09/01/21 08:30 Aspirin E.C. 81 Mg Tabec PO DAILY [facility] Atorvastatin Calcium 80 mg 08/31/21 20:00 Atorvastatin 40 Mg Tab PO QPM [facility] Clopidogrel Bisulfate 75 mg 09/01/21 09:00 Clopidogrel 75 Mg Tab PO DAILY [facility] Dimethicone/Zinc Oxide 0 gm 08/31/21 14:46 Darrell Protect Cream 142 Gm Tube TP PRN PRN Docusate Sodium 100 mg 08/31/21 20:00 Docusate Sodium 100 Mg Cap PO TID [facility] Enoxaparin Sodium 40 mg 09/01/21 09:00 Enoxaparin 40 Mg/0.4 Ml Syr SC DAILY [facility] Potassium Chloride/Sodium Chloride 1,000 mls @ 125 mls/hr 08/31/21 15:00 Kcl 20meq/Ns IV INFUSION [facility] Iohexol 100 ml 08/31/21 12:30 08/31/21 12:31 Omnipaque 350 Mg/Ml 100 Ml Btl IJ 09/30/21 23:59 100 ml DIRECTED SANDHYA Administration Magnesium Hydroxide 30 ml 08/31/21 14:52 Milk Of Magnesia 30 Ml Cup PO DAILY PRN PRN Mupirocin gm 08/31/21 14:55 Mupirocin 2% 15 Gm Tube TP BID PRN Non-Formulary Medication 500 mg 09/01/21 08:30 Ascorbate Calcium (Vitamin C) PO DAILY [facility] Non-Formulary Medication 1,000 unit 09/01/21 08:30 Cholecalciferol (Vitamin D3) PO DAILY [facility] Non-Formulary Medication 2 - 4 gm 08/31/21 14:55 Clobetasol-Emollient TP BID PRN psoriasis Sodium Chloride 50 ml 08/31/21 12:45 08/31/21 12:32 Normal Saline 50 Ml Bag IJ 50 ml DIRECTED SANDHYA Administration Triamcinolone Acetonide gm 08/31/21 14:55 Triamcinolone 0.1% Oint 15 Gm Tube TP BID PRN psoriasis Allergies erythromycin base Allergy (Intermediate, Verified 08/31/21 13:09) RASH, HIVES, BLISTERS latex Allergy (Intermediate, Verified 08/31/21 13:09) RASH Penicillins Allergy (Intermediate, Verified 08/31/21 13:09) HIVES Sulfa (Sulfonamide Antibiotics) Allergy (Intermediate, Verified 08/31/21 13:09) SKIN RASH Tetracyclines Allergy (Intermediate, Verified 08/31/21 13:09) RASH, HIVES, BLISTERS neomycin Allergy (Unknown, Verified 08/31/21 13:09) Exam Narrative Exam Narrative: Physical Exam: Gen: Patient of apparent stated age, NAD Head and face: no facial or cranial abnormalities Neck: Supple, no meningismus, no occipital tenderness CV: + S1, S2, RRR, no murmur Resp: CTA B/L Abd: soft, nontender, nondistended Ext: No edema. No clubbing or cyanosis. No bony deformity. Neuro Exam: Language: fluency, naming, repetition, and comprehension intact; Mental Status: AAOx3, current events intact, fund of knowledge intact; Speech: no dysarthria Cranial nerves: Funduscopy: not performed CN II: visual upton intact CN III, IV, : extraocular movements intact, no nystagmus, pupils symmetric and reactive to light CN V: face sensation intact to LT and PP CN VII: no facial asymmetry noted CN VIII: hearing intact bilaterally CN IX, X: palate rises symmetrically CN XI: trapezius/SCM 5/5 bilaterally CN XII: protrudes tongue symmetrically Sensory: intact to LT, PP, vibration, and joint position in all extremities, absent Romberg Motor: bulk and tone intact. Fine motor movements intact bilaterally. No pronator drift. Strength 5/5 throughout including the deltoids, biceps, triceps, wrist extensors, hip flexors, knee flexors, knee extensors, ankle flexors, and ankle extensors. 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 Reflexes: 2+ at the biceps, triceps, brachioradialis, patella, and achilles tendons bilaterally; toes down going bilaterally; Coordination: FTN and HTS intact bilaterally Gait: not tested Results Last Vital Signs Temp 98.8 F 08/31/21 16:16 Pulse 82 08/31/21 16:18 Resp 22 08/31/21 16:18 BP 161/65 H 08/31/21 16:18 Pulse Ox 96 08/31/21 16:18 Labs Result diagrams: 08/31/21 12:45 08/31/21 12:45 Labs: Laboratory Results - last 24 hr 08/31/21 08/31/21 08/31/21 12:45 12:45 12:45 WBC 8.69 RBC 4.12 Hgb 12.7 Hct 38.7 MCV 93.9 MCH 30.8 MCHC 32.8 RDW 13.7 Plt Count 204 MPV 9.4 Immature Gran % 0.5 Neutrophils % 66.4 Lymphocytes % 22.9 Monocytes % 7.1 Eosinophils % 2.8 Basophils % 0.3 Nucleated RBC % 0 Absolute Neutrophils 5.77 Absolute Lymphocytes 1.99 Absolute Monocytes 0.62 Absolute Eosinophils 0.24 Absolute Basophils 0.03 PT 10.7 INR 1.1 APTT 23.7 Sodium 136 Potassium 3.2 L Chloride 101 Carbon Dioxide 26.1 Anion Gap 8.9 BUN 20 H Creatinine 0.7 Estimated GFR/1.73 m2 >= 60.00 Glucose 150 H Calcium 8.4 L Total Bilirubin 0.3 AST 13 L ALT 30 Alkaline Phosphatase 112 Ammonia Troponin I < 50 Total Protein 6.9 Albumin 3.5 TSH 2.48 Urine Color Urine Clarity Urine pH Ur Specific [place] Urine Protein Urine Ketones Urine Blood Urine Nitrite Urine Bilirubin Urine Urobilinogen Ur Leukocyte Esterase Urine RBC Urine WBC Ur Epithelial Cells Urine Crystals Urine Bacteria Urine Casts Urine Mucus Urine Other Ur Culture Indicated? Urine Glucose COVID-19 Source 08/31/21 08/31/21 08/31/21 12:53 14:26 14:56 WBC RBC Hgb Hct MCV MCH MCHC RDW Plt Count MPV Immature Gran % Neutrophils % Lymphocytes % Monocytes % Eosinophils % Basophils % Nucleated RBC % Absolute Neutrophils Absolute Lymphocytes Absolute Monocytes Absolute Eosinophils Absolute Basophils PT INR APTT Sodium Potassium Chloride Carbon Dioxide Anion Gap BUN Creatinine Estimated GFR/1.73 m2 Glucose Calcium Total Bilirubin AST ALT Alkaline Phosphatase Ammonia < 10 L Troponin I Total Protein Albumin TSH Urine Color Yellow Urine Clarity Clear Urine pH 5.5 Ur Specific [place] 1.010 Urine Protein Negative Urine Ketones Negative Urine Blood Trace-intact H Urine Nitrite Negative Urine Bilirubin Negative Urine Urobilinogen 0.2 Ur Leukocyte Esterase Trace H Urine RBC 0-2 Urine WBC 0-2 Ur Epithelial Cells Rare Urine Crystals Negative Urine Bacteria Few Urine Casts Negative Urine Mucus Negative Urine Other Negative Ur Culture Indicated? No Urine Glucose Negative COVID-19 Source Nasal/Nares
[2021-08-31] MEDS: Acetaminophen 325 MG TAB PO ×2 (17:17→23:56)
[2021-08-31 19:24] LABS: Magnesium 1.3 mg/dL (1.8-2.4)
[2021-08-31 20:11] LABS: COVID-19 PCR Negative (Negative)
[2021-08-31] MEDS: Atorvastatin 40 MG TAB 80 MG PO (20:22)
[2021-08-31] MEDS: POTASSIUM CHLORIDE/0.9% NACL 1,000 ML 75 MEQ IV (23:46)
[2021-08-31] MEDS: MAGNESIUM SULFATE 2 GM/50 ML BAG IVPB (23:46)
[2021-09-01] VITALS (8 sets, daily range): BP systolic 146–173; BP diastolic 64–96; PULSE 60–98; RESP 16–18; TEMP 36.8–37.2; O2SAT 96–99
[2021-09-01] MEDS: Ondansetron 4 MG/2 ML VIAL IVP ×2 (06:27→19:25)
[2021-09-01 07:38] LABS: Abs Immature Grans 0.03 10^3/uL (0.0-0.06); Absolute Basophil Count 0.02 10^3/uL (0.0-0.2); Absolute Eosinophil Count 0.14 10^3/uL (0.0-0.7); Absolute Lymphocyte Count 1.68 10^3/uL (1.2-3.4); Absolute Monocyte Count 0.52 10^3/uL (0.1-0.8); Absolute Neutrophil Count 5.22 10^3/uL (1.2-6.7); Basophils % 0.3; Eosinophils % 1.8; HCT 42.3 % (36.0-46.0); HGB 13.8 g/dL (11.2-15.7); Immature Grans % 0.4; Lymphocytes % 22.1; MCH 30.3 pg (27.0-33.0); MCHC 32.6 % (32.0-36.0); MPV 9.6 fL (8.0-11.0); Monocytes % 6.8; Neutrophils % 68.6; Nucleated RBC 0 %; Platelet Count 231 10^3/uL (130-400); RBC 4.55 10^6/uL (3.93-5.22); RDW 13.7 % (11.7-14.6); RDW-SD 46.6 fL; WBC 7.61 10^3/uL (4.4-10.8)
[2021-09-01 08:07] LABS: ALT 29 U/L (14-59); AST 13 U/L (15-37); Albumin 3.7 g/dL (3.4-5.0); Alkaline Phosphatase 122 U/L (46-116); Anion Gap 9.2 mmol/L (3-11); BUN 11 mg/dL (7-18); Bilirubin, Total 0.4 mg/dL (0.2-1.0); CO2 27.8 mmol/L (21.0-32.0); CREATININE 0.8 mg/dL (0.55-1.02); Calcium 8.9 mg/dL (8.5-10.1); Calculated LDL 86 mg/dL (<100); Chloride 99 mmol/L (98-107); Cholesterol 180 mg/dL (<200); Glucose 147 mg/dL (74-106); HDL Cholesterol 74 mg/dL (40-60); Magnesium 1.8 mg/dL (1.8-2.4); Potassium 3.7 mmol/L (3.5-5.1); Sodium 136 mmol/L (136-145); Total Protein 7.4 g/dL (6.4-8.2); Triglyceride 100 mg/dL (<150)
[2021-09-01] MEDS: Cholecalciferol (Vitamin D3) 1,000 UNIT TAB 1000 UNITS PO (08:09)
[2021-09-01] MEDS: Ascorbic Acid 500 MG TAB PO (08:09)
[2021-09-01] MEDS: Aspirin E.C. 81 MG TABEC PO (08:09)
[2021-09-01] MEDS: Clopidogrel 75 MG TAB PO (08:10)
[2021-09-01] MEDS: Pantoprazole 40 MG TABCR PO (08:10)
[2021-09-01] MEDS: Enoxaparin 40 MG/0.4 ML SYR SC (08:13)
[2021-09-01 08:25] LABS: Bilirubin, Direct 0.1 mg/dL (0.0-0.2)
--- NOTE | 2021-09-01 08:33 | OT.INIE ---
Occupational Therapy Notes Inpatient Occupational Therapy Evaluation Date: 09/01/20 Referring Doctor: Sabina Win MD OT Orders: Non Urgent Precautions: Fall, standard, Full PATIENT PROFILE/ADMITTING DIAGNOSIS: Pt is a 66 year old female who was admitted through the ED with the following dx of (L) carotid stenosis, stroke/TIA. 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 Tiny Disc herniation w/o nerve impingement Insomnia (Chronic) Gastroesophageal reflux disease with esophagitis (Chronic) Cervical spondylosis (Chronic 07/20/03) 2003 MRI C5-6 neural foraminal narrowing 2007 MRI DDD and C5-6 C6-7 neuroforaminal narrowing Medical History Abnormal cervical Papanicolaou smear 07/20/02 +ASCUS; neg HPV Carpal tunnel syndrome Cervical spondylosis Cervical spondylosis (07/20/03) 2003 MRI C5-6 neural foraminal narrowing 2007 MRI DDD and C5-6 C6-7 neuroforaminal narrowing Conductive hearing loss in right ear (04/12/18) Conductive hearing loss of both ears Dermatitis Bx showing dermatitis and epidermal spongiosum Diarrhea Essential hypertension Essential hypertension (09/18/13) Fibrocystic breast disease Gastroesophageal reflux disease with esophagitis GERD (gastroesophageal reflux disease) Hx of breast cancer Insomnia Insomnia Low back pain MRI 2007 DDD L4-5. Tiny Disc herniation w/o nerve impingement Low vision, one eye (04/01/13) Lumbago without sciatica MRI 2007 DDD L4-5. Tiny Disc herniation w/o nerve impingement Mastoiditis Menopausal syndrome Migraine Migraine Pain in thoracic spine Pain in thumb joint with movement left thumb pain w/ abnormal x-rays 2005 Pain in thumb joint with movement Photosensitization due to sun tanning bed Hx Postmenopausal bleeding 07/20/03 neg endo bx fibroid on pelvic u/s Psoriasis Psoriasis Rotator cuff syndrome Rotator cuff syndrome MRI of right shoulder w/partial thickness tear of supraspinatus, moderate atrophy and fluid in the bursa. S/p surgery Sensorineural hearing loss, unilateral, left ear, with restricted hearing on the contralateral side (04/12/18) Smoker Smoker Squamous cell cancer of buccal mucosa (09/04/17) S/P SURGERY Tubular adenoma (01/04/16) Wart Surgical History Breast, Lumpectomy (~06/2004) Colonoscopy - MAC (~12/2005) NEG History of colonoscopy (~12/08/20) Open Carpal Tunnel release (~06/2004) PROCEDURES MRI right shoulder with partial thickness tear of supraspinatus, moderate atrophy and fluid in the bursa. S/P surgery. S/P breast lumpectomy 08/21/03 S/P carpal tunnel release 08/21/03 Social History/Home Situation: Pt is a 66 year old female who lives in a private home with her . She states that she is totally (I) at baseline with no need for DME or (A). Equipment owned/DME: Shower seat SUBJECTIVE: Pt stats that she is doing well. She is agreeable to OT consult. OBJECTIVE: General Observation: Pleasant, IV in (L) UE Mental Status: A&Ox4 Pain: c/o pain d/t headache ROM: RUE AROM WFL L UE AROM WFL STRENGTH: RUE 5/5 throughout LUE 5/5 throughout FUNCTIONAL MOBILITY/ADLS: Transfers Sit-Stand (I) Stand-sit (I) Bed-Chair (I) Chair-bed (I) BATHING standing at sink, no LOB or hand support needed, fatigue noted Bathing UE (I) face, (B) UE, Abdomen Bathing LE (I) van area DRESSING standing at sink Dressing UE (I) hospital gown Dressing LE sitting in chair (I) donning pants GROOMING Standing at sink (I) with deodorant application, wants to wait till after breakfast for oral hygiene TOILETING on toilet (I), no LOB or (A) needed EATING NT BALANCE: Static sitting Normal Dynamic Sitting Normal Static Standing Normal Dynamic Standing Normal SPECIAL TESTS: Daily Activity Limitations Standardized Measure [facility] AM -PAC ?6 clicks? Daily Activity Inpatient Short Form: Raw score: 23 Standardized score: 51.12 CMS score: 15.86% INFORMED CONSENT/EDUCATION: Pt instructed in purpose of OT Consult and plan of care. ASSESSMENT: Patient is a 66-year-old female referred to occupational therapy services with diagnosis of (L) carotid stenosis, stroke, TIA. Patient presents with clinical signs and symptoms consistent with dx, as demonstrated by the following impairment level findings/functional limitations: Decreased functional activity tolerance with standing ADLs, increased fatigue. AMPAC score 23 Patient is assessed as a Low 96204 complexity based on the following: History: see above Examination: see functional limitations as noted above Presentation: evolving Decision Making: AMPAC score 23 GOALS Goals x1 week 1. Transfers (I) 2. Pt will be able to demonstrate energy conservation techniques with ideal technique in her ADL/IADL performance 3. Pt will be able to perform her ADL/IADL routines with increased functional activity tolerance PLAN OF CARE/TREATMENT PLAN: 1x/day, 5 days/ week x 1week Initiate Occupational Therapy Services for bathing, dressing, grooming, toileting, eating, transfer training. DISCHARGE RECOMMENDATIONS OT recommends that pt return home when medically cleared per MD. TREATMENT TIME/MINUTES/CODES 82825, [id number], 25 minutes (07:45) [facility]
--- NOTE | 2021-09-01 09:40 | INITIAL_ITS ---
- If Service Date Differs Date of service: 09/01/21 Time of Service: 09:40 Care Management Initial Assess REASON FOR HOSPITALIZATION:: TIA PAST MEDICAL HISTORY/PAST SURGICAL HISTORY:: All Active Problems (Updated 08/31/21 @ 16:42 by Sabina Win MD). Discharge planning issues (Acute). DVT prophylaxis (Acute). Occlusion of left internal carotid artery (Acute). TIA (transient ischemic attack) (Acute). Hypertrophic lichen planus of vulva (Acute). Colon polyp, hyperplastic (Acute ~11/2020). Thoracic back pain (Acute). Hyperlipidemia (Acute). Diverticula of colon (Acute). Conductive hearing loss in right ear (Acute 04/12/18). Arthritis (Acute). Chronic serous otitis media of right ear (Acute). 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 Tubular adenoma (Chronic 01/04/16). 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 S/P SURGERY. Sensorineural hearing loss, unilateral, left ear, with restricted hearing on the contralateral side (Chronic 04/12/18). Psoriasis (Chronic). . Migraine (Chronic). Low vision, one eye (Chronic 04/01/13). Essential hypertension (Chronic 09/18/13). Lumbago without sciatica (Chronic). MRI 2007 DDD L4-5. Tiny Disc herniation w/o nerve impingement. Insomnia (Chronic). Gastroesophageal reflux disease with esophagitis (Chronic). Cervical spondylosis (Chronic 07/20/03). 2003 MRI C5-6 neural foraminal narrowing. 2007 MRI DDD and C5-6 C6-7 neuroforaminal narrowing. Medical History . Abnormal cervical Papanicolaou smear. 07/20/02 +ASCUS; neg HPV. Carpal tunnel syndrome. Cervical spondylosis. Cervical spondylosis (07/20/03). 2003 MRI C5-6 neural foraminal narrowing. 2007 MRI DDD and C5-6 C6-7 neuroforaminal narrowing. Conductive hearing loss in right ear (04/12/18). Conductive hearing loss of both ears. Dermatitis. Bx showing dermatitis and epidermal spongiosum. Diarrhea. Essential hypertension. Essential hypertension (09/18/13). Fibrocystic breast disease. Gastroesophageal reflux disease with esophagitis. GERD (gastroesophageal reflux disease). Hx of breast cancer. Insomnia. Insomnia. Low back pain. MRI 2007 DDD L4-5. Tiny Disc herniation w/o nerve impingement. Low vision, one eye (04/01/13). Lumbago without sciatica. MRI 2007 DDD L4-5. Tiny Disc herniation w/o nerve impingement. Mastoiditis. Menopausal syndrome. Migraine. Migraine. Pain in thoracic spine. Pain in thumb joint with movement. left thumb pain w/ abnormal x-rays 2005. Pain in thumb joint with movement. Photosensitization due to sun. tanning bed Hx. Postmenopausal bleeding. 07/20/03 neg endo bx fibroid on pelvic u/s. Psoriasis. Psoriasis. . Rotator cuff syndrome. Rotator cuff syndrome. MRI of right shoulder w/partial thickness tear of supraspinatus, moderate atrophy and fluid in the bursa. S/p surgery. Sensorineural hearing loss, unilateral, left ear, with restricted hearing on the contralateral side (04/12/18). Smoker. Smoker. Squamous cell cancer of buccal mucosa (09/04/17). S/P SURGERY. Tubular adenoma (01/04/16). Wart. Surgical History . Breast, Lumpectomy (~06/2004). Colonoscopy - MAC (~12/2005). NEG. History of colonoscopy (~12/08/20). Open Carpal Tunnel release (~06/2004). PROCEDURES. MRI right shoulder with partial thickness tear of supraspinatus, moderate atrophy and fluid in the bursa. S/P surgery. S/P breast lumpectomy. 08/21/03. S/P carpal tunnel release. 08/21/03 PREVIOUS FUNCTIONAL STATUS/SOCIAL/FAMILY SUPPORTS:: Babita lives in a single family home in [place], [place] with her Jaya. They have 2 daughters who live locally and who are supportive. Babita is independent at baseline and receives no community services. She describes herself as active and goes for walks on a regular basis. CURRENT FUNCTIONAL STATUS:: Babita was sitting up in a chair visiting with one of her daughters and a granddaughter when CM met with her. She was smiling and agreeable to conversation. Babita stated that she is feeling 100% better than when she came to the hospital. She informed CM that she does no anticipate the need for any services at discharge. ADVANCE DIRECTIVES:: On file. Jaya MONTES. Has patient been provided with info about the portal/API?: Yes Did the patient sign up for the portal?: No CODE STATUS:: Full Code INSURANCE COVERAGE / FINANCIAL ISSUES:: [facility] Medicare replacement CURRENT HOME/COMMUNITY SERVICES/EQUIPMENT:: none PRIMARY CARE PHYSICIAN:: Megan Jimenez POTENTIAL DISCHARGE NEEDS:: Follow up with PCP and plan of care PATIENT/FAMILY EDUCATION NEEDS:: Review of discharge instructions, medications, limitations, precautions, follow up plan, Ask Me Three TRANSPORTATION:: via private vehicle with family PLAN:: Babita will likely be discharged home with no new services unless she requires oxygen. She will follow up with her community providers and plan of care and transport with family. CM will continie to support Babita and her discharge planning needs.
--- NOTE | 2021-09-01 11:25 | PT.INIE ---
PT Notes Visit Reasons: CVA vs TIA; R Carotid A Occlusion Physical Therapy Inpatient Initial Evaluation Date: 09/01/21 Referring Doctor: Sabina Win MD PT Orders: PT CONSULT: Limited ability Precautions: Fall. Standard. 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 Tiny Disc herniation w/o nerve impingement Insomnia (Chronic) Gastroesophageal reflux disease with esophagitis (Chronic) Cervical spondylosis (Chronic 07/20/03) 2003 MRI C5-6 neural foraminal narrowing 2007 MRI DDD and C5-6 C6-7 neuroforaminal narrowing Medical History Abnormal cervical Papanicolaou smear 07/20/02 +ASCUS; neg HPV Carpal tunnel syndrome Cervical spondylosis Cervical spondylosis (07/20/03) 2003 MRI C5-6 neural foraminal narrowing 2007 MRI DDD and C5-6 C6-7 neuroforaminal narrowing Conductive hearing loss in right ear (04/12/18) Conductive hearing loss of both ears Dermatitis Bx showing dermatitis and epidermal spongiosum Diarrhea Essential hypertension Essential hypertension (09/18/13) Fibrocystic breast disease Gastroesophageal reflux disease with esophagitis GERD (gastroesophageal reflux disease) Hx of breast cancer Insomnia Insomnia Low back pain MRI 2007 DDD L4-5. Tiny Disc herniation w/o nerve impingement Low vision, one eye (04/01/13) Lumbago without sciatica MRI 2007 DDD L4-5. Tiny Disc herniation w/o nerve impingement Mastoiditis Menopausal syndrome Migraine Migraine Pain in thoracic spine Pain in thumb joint with movement left thumb pain w/ abnormal x-rays 2005 Pain in thumb joint with movement Photosensitization due to sun tanning bed Hx Postmenopausal bleeding 07/20/03 neg endo bx fibroid on pelvic u/s Psoriasis Psoriasis Rotator cuff syndrome Rotator cuff syndrome MRI of right shoulder w/partial thickness tear of supraspinatus, moderate atrophy and fluid in the bursa. S/p surgery Sensorineural hearing loss, unilateral, left ear, with restricted hearing on the contralateral side (04/12/18) Smoker Smoker Squamous cell cancer of buccal mucosa (09/04/17) S/P SURGERY Tubular adenoma (01/04/16) Wart Surgical History Breast, Lumpectomy (~06/2004) Colonoscopy - MAC (~12/2005) NEG History of colonoscopy (~12/08/20) Open Carpal Tunnel release (~06/2004) PROCEDURES MRI right shoulder with partial thickness tear of supraspinatus, moderate atrophy and fluid in the bursa. S/P surgery. S/P breast lumpectomy 08/21/03 S/P carpal tunnel release 08/21/03 Social History/Home Situation: Pt lives in a single level home with SO, 3 stair entry without rail Equipment Owned/DME: [facility] Subjective: Cleared by nursing to see patient and patient is agreeable to PT. Patient sitting up in chair at time of consult and connected to telemetry. Objective: General Observation: Pt appears in no acute distress Mental Status: A&O x3 Vitals: BP: 177/74 seated, standing 1min 179/74, standing 3min 174/67 - pt reports some feeling of dizziness/lightheadness but states it is mild SpO2: 98% on RA ROM: Right Upper Extremity: Shoulder Flexion WFL. Shoulder abduction WFL. Elbow flexion WFL. Wrist flexion WFL. Opening and closing of hand WFL. Left Upper Extremity: Shoulder Flexion WFL. Shoulder abduction WFL. Elbow flexion WFL. Wrist flexion WFL. Opening and closing of hand WFL. Right Lower Extremity: Hip flexion WFL. Hip abduction WFL. Knee flexion WFL. Ankle dorsiflexion WFL. Ankle plantarflexion WFL. Left Lower Extremity: Hip flexion WFL. Hip abduction WFL. Knee flexion WFL. Ankle dorsiflexion WFL. Ankle plantarflexion WFL. Strength: Right Upper Extremity: Shoulder flexors 5/5. Shoulder abductors 5/5. Elbow flexors 5/5. Elbow extensors 5/5. Snow Removal/Plowing strong. Left Upper Extremity: Shoulder flexors 5/5. Shoulder abductors 5/5. Elbow flexors 5/5. Elbow extensors 5/5. Snow Removal/Plowing strong. Right Lower Extremity: Hip flexors 4/5. Hip abductors 5/5. Knee flexors 5/5. Knee extensors 5/5. Ankle dorsiflexors 5/5. Ankle plantarflexors 5/5. Left Lower Extremity: Hip flexors 4/5. Hip abductors 5/5. Knee flexors 5/5. Knee extensors 5/5. Ankle dorsiflexors 5/5. Ankle plantarflexors 5/5. Sensation: Intact as to pain and pressure on bilateral lower extremities. Bed Mobility/Transfers: Rolling: I Supine to sit: I Sit to supine: I Sit to stand: I Stand to sit: I Bed to chair: I ultilizing FWW, Supervision without AD Chair to bed: I ultilizing FWW, Supervision without AD Gait: Ambulated I with FWW 1x10ft, Supervision without AD [id number]. Stairs: Supervision without rails on ascent and descent of 2steps Balance: Static Sitting: WNL Dynamic Sitting: WNL 4 stage balance test Time completed FT 10s Semi-tandem 10s Tandem 4s SLS NT Special Tests: Mobility Limitations Standardized Measure [facility] AM-PAC 6 clicks Basic Mobility Inpatient Short Form: Raw Score: 24 CMS Score: 0% Informed Consent/Education: Patient instructed in purpose of PT consult and plan of care. Assessment: Patient presents with clinical signs and symptoms consistent with current/admitting diagnoses that have resulted to mild mobility limitations and gait instability as demonstrated by the following impairment level findings: 1. Impaired sitting/standing balance 2. Supervision status with ambulation without an AD Impairments are contributing to the following functional limitations: 1. Inability to safely ambulate I without assistive device 2. Increase completion time for mobility ADL performance 3. Increased fall risk Patient is assessed as a low complexity based on the following: History: 66 year old female identifying person with impairment level findings, functional limitations, and past medical history as indicated above Examination: Demonstrable impairment in balance and mobility level with underlying impairments and functional limitations as documented above as compared to baseline Presentation: Stable Decision Making: low complexity Plan of Care/Treatment Plan: Pt does not require skilled physical therapy services in this setting. DISCHARGE RECOMMENDATIONS: Based on pt's mobility, pt is appropriate for DC to her home environment pending decisions regarding medical intervention. Pt is recommended OP PT follow-up to address any remaining balance deficits and for starting an aerobic exercise program to help manage her BP. TREATMENT CODE/TIME: (25 minutes), [id number] Thank you for the opportunity to participate in the care of this patient.
--- NOTE | 2021-09-01 12:15 | PGE_ITS ---
Date of Service Date of service: 09/01/21 Time of Service: 12:16 Assessment and Plan Assessment and plan (1) TIA (transient ischemic attack): Status: Acute (2) Left carotid stenosis: Status: Acute Assessment and plan: Ms. Garsia is a 66 year-old, right-handed woman with hypertension and hyperlipidemia admitted with a TIA manifested by transient right hemiparesis, expressive asphasia, and dysarthria secondary to a left carotid stenosis. New diagnosis of pre-diabetes. Work-up: -TTE pending -Telemetry Medications: -aspirin 81mg daily for secondary stroke prevention -clopidogrel 75mg daily for secondary stroke prevention -atrovastatin 80mg daily for secondary stroke prevention (ok to reduce back to 40mg at discharge) Other: -Continue permissive hypertension -switch to IV heparin infusion + aspirin for any concern of recurrent TIA/stroke -consult with [facility] regarding plan for L ICA stenosis and recommended CEA -Nutrition consult for new pre-diabetes -agree with minimal hospitalization through 48 hr high-risk window Subjective Subjective Interval history since last seen: No symptoms overnight. Did not sleep well. Headache. No weakness today. TTE pending. A1c 6.0, LDL 86. Exam Narrative Exam Narrative: Physical Exam: Constitutional: Patient of apparent stated age, well nourished, well developed, no acute distress Neuro: MS/Language/Speech: Alert, oriented, clear language (fluency and comprehension), no dysarthria Motor: Normal bulk and tone. FMM intact, no pronator drift. 5/5 strength in bilateral upper and lower extremities Objective Last Vital Signs Temp 99.0 F 09/01/21 11:32 Pulse 73 09/01/21 11:32 Resp 17 09/01/21 11:32 BP 173/96 H 09/01/21 11:32 Pulse Ox 98 09/01/21 11:32 Laboratory Results - last 24 hr 08/31/21 08/31/21 08/31/21 12:45 12:45 12:45 WBC 8.69 RBC 4.12 Hgb 12.7 Hct 38.7 MCV 93.9 MCH 30.8 MCHC 32.8 RDW 13.7 Plt Count 204 MPV 9.4 Immature Gran % 0.5 Neutrophils % 66.4 Lymphocytes % 22.9 Monocytes % 7.1 Eosinophils % 2.8 Basophils % 0.3 Nucleated RBC % 0 Absolute Neutrophils 5.77 Absolute Lymphocytes 1.99 Absolute Monocytes 0.62 Absolute Eosinophils 0.24 Absolute Basophils 0.03 PT 10.7 INR 1.1 APTT 23.7 Sodium 136 Potassium 3.2 L Chloride 101 Carbon Dioxide 26.1 Anion Gap 8.9 BUN 20 H Creatinine 0.7 Estimated GFR/1.73 m2 >= 60.00 Glucose 150 H Hemoglobin A1c Calcium 8.4 L Magnesium Total Bilirubin 0.3 Conjugated Bilirubin AST 13 L ALT 30 Alkaline Phosphatase 112 Ammonia Troponin I < 50 Total Protein 6.9 Albumin 3.5 Triglycerides Total Cholesterol LDL Cholesterol, Calc HDL Cholesterol TSH 2.48 Urine Color Urine Clarity Urine pH Ur Specific [place] Urine Protein Urine Ketones Urine Blood Urine Nitrite Urine Bilirubin Urine Urobilinogen Ur Leukocyte Esterase Urine RBC Urine WBC Ur Epithelial Cells Urine Crystals Urine Bacteria Urine Casts Urine Mucus Urine Other Ur Culture Indicated? Urine Glucose COVID-19 Source SARS-CoV-2 (PCR) 08/31/21 08/31/21 08/31/21 12:53 12:53 14:26 WBC RBC Hgb Hct MCV MCH MCHC RDW Plt Count MPV Immature Gran % Neutrophils % Lymphocytes % Monocytes % Eosinophils % Basophils % Nucleated RBC % Absolute Neutrophils Absolute Lymphocytes Absolute Monocytes Absolute Eosinophils Absolute Basophils PT INR APTT Sodium Potassium Chloride Carbon Dioxide Anion Gap BUN Creatinine Estimated GFR/1.73 m2 Glucose Hemoglobin A1c Calcium Magnesium 1.3 L Total Bilirubin Conjugated Bilirubin AST ALT Alkaline Phosphatase Ammonia < 10 L Troponin I Total Protein Albumin Triglycerides Total Cholesterol LDL Cholesterol, Calc HDL Cholesterol TSH Urine Color Yellow Urine Clarity Clear Urine pH 5.5 Ur Specific [place] 1.010 Urine Protein Negative Urine Ketones Negative Urine Blood Trace-intact H Urine Nitrite Negative Urine Bilirubin Negative Urine Urobilinogen 0.2 Ur Leukocyte Esterase Trace H Urine RBC 0-2 Urine WBC 0-2 Ur Epithelial Cells Rare Urine Crystals Negative Urine Bacteria Few Urine Casts Negative Urine Mucus Negative Urine Other Negative Ur Culture Indicated? No Urine Glucose Negative COVID-19 Source SARS-CoV-2 (PCR) 08/31/21 09/01/21 09/01/21 14:56 06:57 06:57 WBC RBC Hgb Hct MCV MCH MCHC RDW Plt Count MPV Immature Gran % Neutrophils % Lymphocytes % Monocytes % Eosinophils % Basophils % Nucleated RBC % Absolute Neutrophils Absolute Lymphocytes Absolute Monocytes Absolute Eosinophils Absolute Basophils PT INR APTT Sodium 136 Potassium 3.7 Chloride 99 Carbon Dioxide 27.8 Anion Gap 9.2 BUN 11 D Creatinine 0.8 Estimated GFR/1.73 m2 >= 60.00 Glucose 147 H Hemoglobin A1c 6.0 H Calcium 8.9 Magnesium 1.8 Total Bilirubin 0.4 Conjugated Bilirubin 0.1 AST 13 L ALT 29 Alkaline Phosphatase 122 H Ammonia Troponin I Total Protein 7.4 Albumin 3.7 Triglycerides 100 Total Cholesterol 180 LDL Cholesterol, Calc 86 HDL Cholesterol 74 TSH Urine Color Urine Clarity Urine pH Ur Specific [place] Urine Protein Urine Ketones Urine Blood Urine Nitrite Urine Bilirubin Urine Urobilinogen Ur Leukocyte Esterase Urine RBC Urine WBC Ur Epithelial Cells Urine Crystals Urine Bacteria Urine Casts Urine Mucus Urine Other Ur Culture Indicated? Urine Glucose COVID-19 Source Nasal/Nares SARS-CoV-2 (PCR) Negative 09/01/21 06:57 WBC 7.61 RBC 4.55 Hgb 13.8 Hct 42.3 MCV 93.0 MCH 30.3 MCHC 32.6 RDW 13.7 Plt Count 231 MPV 9.6 Immature Gran % 0.4 Neutrophils % 68.6 Lymphocytes % 22.1 Monocytes % 6.8 Eosinophils % 1.8 Basophils % 0.3 Nucleated RBC % 0 Absolute Neutrophils 5.22 Absolute Lymphocytes 1.68 Absolute Monocytes 0.52 Absolute Eosinophils 0.14 Absolute Basophils 0.02 PT INR APTT Sodium Potassium Chloride Carbon Dioxide Anion Gap BUN Creatinine Estimated GFR/1.73 m2 Glucose Hemoglobin A1c Calcium Magnesium Total Bilirubin Conjugated Bilirubin AST ALT Alkaline Phosphatase Ammonia Troponin I Total Protein Albumin Triglycerides Total Cholesterol LDL Cholesterol, Calc HDL Cholesterol TSH Urine Color Urine Clarity Urine pH Ur Specific [place] Urine Protein Urine Ketones Urine Blood Urine Nitrite Urine Bilirubin Urine Urobilinogen Ur Leukocyte Esterase Urine RBC Urine WBC Ur Epithelial Cells Urine Crystals Urine Bacteria Urine Casts Urine Mucus Urine Other Ur Culture Indicated? Urine Glucose COVID-19 Source SARS-CoV-2 (PCR) PAWSS Have you Been Recently Intoxicated or Drunk Within the Last 30 days?: No Have you Ever Experienced Previous Episodes of Alcohol Withdrawal?: No Have you ever Experienced Withdrawal Seizures?: No Have you ever Experienced Delirium Tremens(DT)s?: No Have you ever undergone Alcohol Rehabilitation Treatment (i.e, inpt ot outpatient treatment programs)?: No Have you ever Experienced Blackouts?: No Have you ever Combined Alcohol with other Downers within the last 90 days?: No Have you ever Combined Alcohol with any other Substance of Abuse during the last 90 days?: No Positive Blood Alcohol level on Presentation? [PCS.BAL]: No Evidence of Increased Autonomic Activity (i.e. HR>120, tremor, sweating, agitation, nausea)?: No Result: 0
[2021-09-01 12:51] LABS: Lab Add On Test DONE
[2021-09-01] MEDS: Acetaminophen 325 MG TAB PO (16:37)
--- NOTE | 2021-09-01 18:05 | DSE_ITS ---
Date of service: 09/01/21 Time of Service: 18:05 DS: Diagnosis Discharge Diagnosis (1) TIA (transient ischemic attack): Status: Acute (2) Left carotid stenosis: Status: Acute (3) Prediabetes: Status: Acute (4) Essential hypertension: Status: Chronic (5) Hyperlipidemia: Status: Acute Discharge Plan Disposition Patient Disposition: [facility] Condition: Stable Discharge Details Reason For Visit: CVA vs TIA; R Carotid A Occlusion Admit Date/Time: 08/31/21 14:47 Admit Provider: Sabina Win Attending Provider: Sabina Win Primary Care Provider: Megan Jimenez [facility] Course Hospital Course: Ms Garsia is a 66 year old female with PMHx of HTN, hyperlipidemia, migraines, GERD, who was admitted to [facility] hospitalist service on 08/31/20 for a TIA with near occlusion of L internal carotid artery, having presented with sudden onset of R-sided weakness (facial, RUE/RLE), as well as dysarthria and unsteady gait. The patient's symptoms rapidly improved, so while she was initially considered for TPA, it was not given as her NIH stroke scale went form 12 to 1-2 over the course of about 1 hour. The patient was loaded with aspirin and plavix. The patient's CTA demonstrated a near occlusion of her left internal carotid artery. Transfer was sought from the ED to [facility] and [facility], but neither had beds available. The patient was felt stable for admission to our facility while further workup was being completed and other transfer options were being pursued. Her MRI did not show an acute CVA. Her echocardiogram was, unfortunately, done without a bubble study, but did not reveal any significantly abnormalities. She was found to be prediabetic with an A1C of 6.0. Her symptoms have nearly completely resolved, with the exception for mild subjective unsteady gait. The patient was evaluated at our facility by Dr Cruz who recommended permissive hypertension in addition to the above interventions as well as and transfer for a carotid endarterectomy. The patient's case was reviewed with [facility] vascular surgery (Dr Paredes) and neurology, and the patient was accepted in transfer by Dr Irving of Neurology with plans for a carotid endarterectomy. The patient is medically stable for transfer and is agreeable to transfer. Care for patient as well as completion of her discharge summary on day of discharge took 60 minutes. *Please, note: the list of medications below reflects the patient's outpatient prescriptions. Please, look at MAR for list of current inpatient medications. Home Meds and New Rx's Prescriptions: No Action mupirocin calcium 2 % cream 1 applic Topical BID PRNRF: 0 aspirin 81 mg tablet,chewable 81 mg PO DAILY RF: 0 amlodipine 5 mg tablet 5 mg PO DAILY Qty: 90 RF: 12 atorvastatin 40 mg tablet 40 mg PO DAILY Qty: 90 RF: 4 losartan [Cozaar] 100 mg tablet 100 mg PO DAILY Qty: 90 RF: 4 propranolol 60 mg tablet 60 mg PO BID PRN (Reason: tremor(s)) Qty: 180 RF: 4 ascorbate calcium (vitamin C) 500 mg tablet 500 mg PO DAILY RF: 0 cholecalciferol (vitamin D3) 1,000 unit capsule 1,000 unit PO DAILY RF: 0 Galzin 50 mg (zinc) capsule 50 mg PO DAILY RF: 0 triamcinolone acetonide 0.1 % ointment 1 applic Topical BID PRN (Reason: psoriasis) Qty: 80 RF: 4 clobetasol-emollient 0.05 % cream 2 - 4 gm Topical BID PRN (Reason: psoriasis) Qty: 3 RF: 6 chlorthalidone 25 mg tablet 25 mg PO DAILY Qty: 90 RF: 4 Discharge Instructions Instructions: Aspirin (By mouth), Clopidogrel (By mouth), Transient Ischemic Attack (DC), Carotid Artery Disease (DC) Stand Alone Forms: Nursing Discharge Form Referrals: Megan Jimenez MD, [place] [Primary Care Provider] - Lisbet Cruz MD [ [facility] STAFF PHYSICIAN] - Activity:: Activity as Tolerated Diet:: carb consistent heart healthy Discharge Orders Discharge Orders: Discharge Order (Routine); Ordered 09/01/21 Ordered By: Sabina Win DS: Summary Time Spent with Patient providing and/or coordinating discharge services: Greater than 30 minutes Status at Discharge Functional status at discharge: independent ambulation Overall status at discharge: patient is progressing back to baseline Mental Status: mental status grossly normal Speech and Movement: speech and movement normal Mood: congruent mood Affect: normal affect Exam Narrative Exam Narrative: General: Very pleasant middle-aged female who appears comfortable in a chair, no visible facial droop, fluent speech, A&Ox3, NAD Neurological: A&Ox3, CN II-XII intact, finger to nose intact, sensory intact, no pronator drift, 5/5 strength in BLEs, 4+ in RUE, 5 LUE, 2+DTRs bilaterally, plantar response flexion, subtle hesitancy in rapid alternating movements on the R Psychiatric: Appropriate speech pattern/content Skin: Visible skin intact HEENT: Atraumatic, normocephalic, EOMI, dry MM, clear oropharynx, no submandibular or cervical lymphadenopathy, no goiter or JVD; no carotid bruit Cardiovascular: RRR, no m/r/g Lungs: CTAB Gastrointestinal: soft, nontender, nondistended Genitourinary: deferred Extremities: no edema/clubbing/cyanosis BLEs, 2+ Pedal pulses B Psych Mental Status: mental status grossly normal Speech and Movement: speech and movement normal Mood: congruent mood Affect: normal affect DS: Data Vitals/I&O Vitals and I&O: Vital Signs Temperature 37 C 09/01/21 15:41 Temperature Source Tympanic 09/01/21 15:41 Pulse 60 09/01/21 15:41 Pulse Rhythm Regular 09/01/21 08:30 Pulse 84 08/31/21 15:01 Respiratory Rate 18 09/01/21 15:41 Respiratory Effort 09/01/21 08:30 Respiratory Depth Normal 09/01/21 08:30 Respiratory Pattern Normal 09/01/21 08:30 Blood Pressure 165/71 H 09/01/21 15:41 Blood Pressure Mean 88 08/31/21 15:01 Pulse Oximetry 97 09/01/21 15:41 Oxygen Delivery Method Room Air 09/01/21 15:41 Oxygen Flow Rate 0 09/01/21 15:41 Pain Level 5 09/01/21 16:37 Intake & Output 08/31/21 09/01/21 09/01/21 23:59 11:59 23:59 Intake Total 610 / 1610 1000 / 1610 Output Total 850 / 850 2100 / 3100 1000 / 3100 Balance -850 / -850 -1490 / -1490 0 / -1490 Weight 77.111 kg 78 kg Intake: IV 1000 / 1000 Oral 610 / 610 Output: Urine 850 / 850 2100 / 3100 1000 / 3100 Other: Urine Color Pale Pale Pale Yellow Yellow Yellow Urine Appearance Clear Clear Clear Urine Odor Normal Normal Normal Comment 1000 is from voiding 3x. Voiding Methods Toilet Toilet Toilet Data Completed and Pending Completed studies during hospitalization [Text1]: CTA head/neck: There is a near occlusion of the proximal left internal carotid artery by calcified atheromatous plaque. Mild atheromatous changes elsewhere as described above. Brain MRI: No evidence of acute process. No evidence of acute or subacute cerebral infarction. Echo (brief summary): LVEF 64%, nml segmental wall motion. LA normal in size. PFO cannot be ruled out (bubble study not done); structurally normal valves. Labs on day of discharge: Labs from last 24 hours 09/01/21 09/01/21 09/01/21 06:57 06:57 06:57 WBC 7.61 RBC 4.55 Hgb 13.8 Hct 42.3 MCV 93.0 MCH 30.3 MCHC 32.6 RDW 13.7 Plt Count 231 MPV 9.6 Immature Gran % 0.4 Neutrophils % 68.6 Lymphocytes % 22.1 Monocytes % 6.8 Eosinophils % 1.8 Basophils % 0.3 Nucleated RBC % 0 Absolute Neutrophils 5.22 Absolute Lymphocytes 1.68 Absolute Monocytes 0.52 Absolute Eosinophils 0.14 Absolute Basophils 0.02 Sodium 136 Potassium 3.7 Chloride 99 Carbon Dioxide 27.8 Anion Gap 9.2 BUN 11 D Creatinine 0.8 Estimated GFR/1.73 m2 >= 60.00 Glucose 147 H Hemoglobin A1c 6.0 H Calcium 8.9 Magnesium 1.8 Total Bilirubin 0.4 Conjugated Bilirubin 0.1 AST 13 L ALT 29 Alkaline Phosphatase 122 H Total Protein 7.4 Albumin 3.7 Triglycerides 100 Total Cholesterol 180 LDL Cholesterol, Calc 86 HDL Cholesterol 74 SARS-CoV-2 (PCR) Add-On Test Request 08/31/21 08/31/21 08/31/21 14:56 12:53 12:53 WBC RBC Hgb Hct MCV MCH MCHC RDW Plt Count MPV Immature Gran % Neutrophils % Lymphocytes % Monocytes % Eosinophils % Basophils % Nucleated RBC % Absolute Neutrophils Absolute Lymphocytes Absolute Monocytes Absolute Eosinophils Absolute Basophils Sodium Potassium Chloride Carbon Dioxide Anion Gap BUN Creatinine Estimated GFR/1.73 m2 Glucose Hemoglobin A1c Calcium Magnesium 1.3 L Total Bilirubin Conjugated Bilirubin AST ALT Alkaline Phosphatase Total Protein Albumin Triglycerides Total Cholesterol LDL Cholesterol, Calc HDL Cholesterol SARS-CoV-2 (PCR) Negative Add-On Test Request DONE PFSH All Active Problems (Updated 09/01/21 @ 18:06 by Sabina Win MD) Prediabetes (Acute) Left carotid stenosis (Acute) Stroke (Chronic) Discharge planning issues (Acute) DVT prophylaxis (Acute) Occlusion of left internal carotid artery (Acute) TIA (transient ischemic attack) (Acute) Hypertrophic lichen planus of vulva (Acute) Colon polyp, hyperplastic (Acute ~11/2020) Thoracic back pain (Acute) Hyperlipidemia (Acute) Diverticula of colon (Acute) Conductive hearing loss in right ear (Acute 04/12/18) Arthritis (Acute) Chronic serous otitis media of right ear (Acute) 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 Tiny Disc herniation w/o nerve impingement Insomnia (Chronic) Gastroesophageal reflux disease with esophagitis (Chronic) Cervical spondylosis (Chronic 07/20/03) 2004 MRI C5-6 neural foraminal narrowing 2007 MRI DDD and C5-6 C6-7 neuroforaminal narrowing Medical History Abnormal cervical Papanicolaou smear 07/20/02 +ASCUS; neg HPV Carpal tunnel syndrome Cervical spondylosis Conductive hearing loss of both ears Dermatitis Bx showing dermatitis and epidermal spongiosum Diarrhea Essential hypertension Fibrocystic breast disease GERD (gastroesophageal reflux disease) Hx of breast cancer Insomnia Low back pain MRI 2007 DDD L4-5. Tiny Disc herniation w/o nerve impingement Mastoiditis Menopausal syndrome Migraine Pain in thoracic spine Pain in thumb joint with movement left thumb pain w/ abnormal x-rays 2006 Pain in thumb joint with movement Photosensitization due to sun tanning bed Hx Postmenopausal bleeding 07/20/03 neg endo bx fibroid on pelvic u/s Psoriasis Rotator cuff syndrome Rotator cuff syndrome MRI of right shoulder w/partial thickness tear of supraspinatus, moderate atrophy and fluid in the bursa. S/p surgery Smoker Smoker Wart Surgical History Breast, Lumpectomy (~06/2004) Colonoscopy - MAC (~12/2005) NEG History of colonoscopy (~12/08/20) Open Carpal Tunnel release (~06/2004) PROCEDURES MRI right shoulder with partial thickness tear of supraspinatus, moderate atrophy and fluid in the bursa. S/P surgery. S/P breast lumpectomy 08/21/03 S/P carpal tunnel release 08/21/03 Family History Mother , 72 Essential hypertension Heart disease Hyperlipidemia Stroke Father , 69 Essential hypertension Heart disease CHF Hyperlipidemia Myocardial infarction Stroke Brother , 60 Essential hypertension Heart disease Hyperlipidemia Stroke Sister Essential hypertension CHF (congestive heart failure) Heart disease Hyperlipidemia Maternal Grandfather No problems noted. Paternal Grandfather No problems noted. Maternal Grandmother No problems noted. Paternal Grandmother No problems noted. Sister Essential hypertension Lung cancer Sister Essential hypertension Daughter No problems noted. Daughter No problems noted. Social History Smoking/Tobacco Use Status: Former Tobacco Use tobacco type: cigarettes Quit Date: 08/21/17 Tobacco: How many years used: 35 Smoking risk assessment performed?: Yes Alcohol Intake: current Alcohol Intake frequency: a few times a week Alcohol type: wine and hard liquor Drug use: Never Substance use type: does not use Caregiver/Support person: No Household members: spouse Housing: house Communication Needs: Hard of Hearing Do you need help understanding health information?: Rarely Pets and animals: No Sexually active: Yes Do you think of yourself as: straight/heterosexual Current gender identity: female What is your relationship status?: How often do you talk on the phone with friends or family?: twice per week How often do you get together with friends or relatives?: twice per week How often do you attend adventism or episcopal services?: 1-3 times per year Do you belong to any clubs or organized social groups?: no Panel score (0-1 are the most socially isolated patients): 2 What type of physical activity do you participate in: none Duration: 15-30 minutes/day Frequency: 3-4 times per week Sheba/Taoist: Adventist Special sheba needs: No Seatbelt use: always Helmet use: No Drive intox or ride w/intox route delivery driver: No Do you feel safe at home: Yes Do you feel safe in your relationship?: Yes
[2021-09-01] MEDS: Atorvastatin 40 MG TAB 80 MG PO (19:11)
[2021-09-01] MEDS: Docusate Sodium 100 MG CAP PO (19:11)
== END 2021-09-01 19:57 | disposition short-term general hospital (02) | DRG 68 ==
LOC: ER 13:26 → MS 16:20
PROVIDERS: Family Medicine; Admitting Provider Internal Medicine; Emergency Provider Student in an Organized Health Care Education/Training Program; PCP Family Medicine; Visit Provider Internal Medicine
DX: I65.22 Occlusion and stenosis of left carotid artery (principal); G81.91 Hemiplegia, unspecified affecting right dominant side; I10 Essential (primary) hypertension; E78.5 Hyperlipidemia, unspecified; R47.1 Dysarthria and anarthria; R47.01 Aphasia; L40.9 Psoriasis, unspecified; K57.30 Diverticulosis of large intestine without perforation or abscess without bleeding; G43.909 Migraine, unspecified, not intractable, without status migrainosus; M54.50 Low back pain, unspecified; F51.04 Psychophysiologic insomnia; K21.00 Gastro-esophageal reflux disease with esophagitis, without bleeding; M47.812 Spondylosis without myelopathy or radiculopathy, cervical region; Z85.3 Personal history of malignant neoplasm of breast; Z87.891 Personal history of nicotine dependence; R29.709 NIHSS score 9; R73.03 Prediabetes; R29.810 Facial weakness
CPT/HCPCS: 36415; 36416; 70496; 70498; 80048; 80053; 80061; 80076; 82962; 87635; 93005; 97161; 97535; 99223; 99232; 99291; J1650; 70551; 81003; 81015; 82140; 83036; 83735; 84443; 84484; 85025; 85610; 85730; 93010; 93306; 99239; J2405; J3490

== ENCOUNTER → 2021-09-01 13:31 | Outpatient (BNVA) | payer MEDICARE, SELFPAY | PROVIDERS: PCP Family Medicine; Referring Provider Family Medicine; Visit Provider Psychiatry & Neurology Neurology | DX: R69 Illness, unspecified (principal) ==

== ENCOUNTER 2021-09-24 16:16 | Outpatient (CLI) | payer MEDICARE, SELFPAY ==
--- NOTE | 2021-09-24 16:15 | RT.EKG_ITS ---
APPROVED REPORT Exam: Resting ECG Reason for Exam: fatigue Patient Location: O HR:70 bpm ECG Measurements Heart Rate 70 AXIS NM 208 P 79 QRSd 99 QRS 23 QT 395 T -55 QTc 425 Conclusion Sinus rhythm...normal P axis, V-rate 60- 99
== END 2021-09-24 16:17 | disposition home or self-care (01) ==
LOC: DI.CM 16:20
PROVIDERS: PCP Family Medicine; Visit Provider Nurse Practitioner
DX: R53.83 Other fatigue (principal)
CPT/HCPCS: 93010

== ENCOUNTER 2021-09-24 17:12 | Outpatient (REF) | payer MEDICARE, SELFPAY ==
[2021-09-24 18:16] LABS: ALT 37 U/L (14-59); AST 17 U/L (15-37); Albumin 4.3 g/dL (3.4-5.0); Alkaline Phosphatase 113 U/L (46-116); Anion Gap 10.9 mmol/L (3-11); BUN 14 mg/dL (7-18); Bilirubin, Total 0.6 mg/dL (0.2-1.0); CO2 26.1 mmol/L (21.0-32.0); CREATININE 0.7 mg/dL (0.55-1.02); Calcium 9.6 mg/dL (8.5-10.1); Chloride 90 mmol/L (98-107); Glucose 102 mg/dL (74-106); Potassium 3.1 mmol/L (3.5-5.1); Sodium 127 mmol/L (136-145); Total Protein 7.7 g/dL (6.4-8.2)
[2021-09-24 18:24] LABS: HCT 37.6 % (36.0-46.0); HGB 13.1 g/dL (11.2-15.7); MCH 30.6 pg (27.0-33.0); MCHC 34.8 % (32.0-36.0); MCV 87.9 fL (80-95); MPV 9.9 fL (8.0-11.0); Platelet Count 293 10^3/uL (130-400); RBC 4.28 10^6/uL (3.93-5.22); RDW 12.5 % (11.7-14.6); RDW-SD 40.4 fL; WBC 9.16 10^3/uL (4.4-10.8)
[2021-09-26 12:20] LABS: COVID-19 RT-PCR UVMMC Result Negative (Negative)
== END 2021-09-24 17:13 | disposition home or self-care (01) ==
LOC: LBN 17:12
PROVIDERS: PCP Family Medicine; Visit Provider Nurse Practitioner
DX: R11.0 Nausea (principal); R53.1 Weakness; R53.83 Other fatigue; Z20.822 Contact with and (suspected) exposure to COVID-19
CPT/HCPCS: 80053; 85027; U0003; U0005

== ENCOUNTER 2021-09-29 01:44 | Outpatient (CLI) | payer MEDICARE, SELFPAY ==
[2021-09-29 15:48] LABS: Anion Gap 11.9 mmol/L (3-11); BUN 24 mg/dL (7-18); CO2 27.1 mmol/L (21.0-32.0); CREATININE 1.3 mg/dL (0.55-1.02); Calcium 9.4 mg/dL (8.5-10.1); Calculated LDL 56 mg/dL (<100); Chloride 95 mmol/L (98-107); Cholesterol 116 mg/dL (<200); Estimated GFR 40.86 (mL/min/1.73m2); Glucose 98 mg/dL (74-106); HDL Cholesterol 39 mg/dL (40-60); Potassium 3.7 mmol/L (3.5-5.1); Sodium 134 mmol/L (136-145); Triglyceride 108 mg/dL (<150)
[2021-09-29 16:42] LABS: COMMENT (LAB VIEW ONLY) 193.31 mg/dL; Microalb ug/mg Crea 32.4 ug/mg Cr
== END 2021-09-29 01:45 | disposition home or self-care (01) ==
LOC: LBO 01:44
PROVIDERS: PCP Family Medicine; Visit Provider Family Medicine
DX: E11.9 Type 2 diabetes mellitus without complications (principal); E78.5 Hyperlipidemia, unspecified; G45.9 Transient cerebral ischemic attack, unspecified; E87.1 Hypo-osmolality and hyponatremia
CPT/HCPCS: 36415; 80048; 80061; 82043; 82570; 83036

== ENCOUNTER → 2021-10-06 10:17 | Outpatient (BNVA) | payer MEDICARE, SELFPAY | PROVIDERS: PCP Family Medicine; Referring Provider Family Medicine; Visit Provider Psychiatry & Neurology Neurology | DX: I69.320 Aphasia following cerebral infarction (principal); I69.322 Dysarthria following cerebral infarction; I69.351 Hemiplegia and hemiparesis following cerebral infarction affecting right dominant side; I65.22 Occlusion and stenosis of left carotid artery; Z79.82 Long term (current) use of aspirin; R73.03 Prediabetes; G47.00 Insomnia, unspecified; R35.1 Nocturia; I10 Essential (primary) hypertension | CPT/HCPCS: 99214 ==

== ENCOUNTER 2021-10-07 10:33 | Outpatient (REF) | payer MEDICARE, SELFPAY ==
[2021-10-07 12:02] LABS: Anion Gap 8.9 mmol/L (3-11); BUN 18 mg/dL (7-18); CO2 27.1 mmol/L (21.0-32.0); CREATININE 0.7 mg/dL (0.55-1.02); Chloride 104 mmol/L (98-107); Glucose 120 mg/dL (74-106); Potassium 4.4 mmol/L (3.5-5.1); Sodium 140 mmol/L (136-145)
== END 2021-10-07 10:34 | disposition home or self-care (01) ==
LOC: LBN 10:33
PROVIDERS: PCP Family Medicine; Visit Provider Family Medicine
DX: E87.1 Hypo-osmolality and hyponatremia (principal)
CPT/HCPCS: 80048

== ENCOUNTER 2021-10-20 16:56 | Outpatient (REF) | payer MEDICARE, SELFPAY ==
[2021-10-20 14:06] LABS: Anion Gap 10.2 mmol/L (3-11); BUN 9 mg/dL (7-18); CO2 25.8 mmol/L (21.0-32.0); CREATININE 0.7 mg/dL (0.55-1.02); Calcium 9.5 mg/dL (8.5-10.1); Chloride 99 mmol/L (98-107); Glucose 102 mg/dL (74-106); Sodium 135 mmol/L (136-145)
== END 2021-10-20 16:57 | disposition home or self-care (01) ==
LOC: LBN 16:56
PROVIDERS: PCP Family Medicine; Visit Provider Family Medicine
DX: I65.22 Occlusion and stenosis of left carotid artery
CPT/HCPCS: 80048

== ENCOUNTER 2022-01-11 02:41 | Outpatient (CLI) | payer MEDICARE, SELFPAY ==
[2022-01-11 12:52] LABS: HCT 40.3 % (36.0-46.0); HGB 13.1 g/dL (11.2-15.7); MCH 30.5 pg (27.0-33.0); MCHC 32.5 % (32.0-36.0); MCV 94 fL (80-95); MPV 9.9 fL (8.0-11.0); Platelet Count 250 10^3/uL (130-400); RBC 4.29 10^6/uL (3.93-5.22); RDW 13.5 % (11.7-14.6); RDW-SD 46.9 fL; WBC 8.55 10^3/uL (4.4-10.8)
[2022-01-11 13:11] LABS: PTT Activated 24.9 sec (21.0-27.5); Prothrombin Time 10.2 sec (9.3-11.0)
[2022-01-11 13:55] LABS: Anion Gap 9.6 mmol/L (3-11); BUN 14 mg/dL (7-18); CO2 28.4 mmol/L (21.0-32.0); CREATININE 0.8 mg/dL (0.55-1.02); Chloride 104 mmol/L (98-107); Glucose 106 mg/dL (74-106); Potassium 4.3 mmol/L (3.5-5.1); Sodium 142 mmol/L (136-145)
== END 2022-01-11 02:42 | disposition home or self-care (01) ==
LOC: LBO 02:41
PROVIDERS: PCP Family Medicine; Visit Provider Nurse Practitioner
DX: E87.1 Hypo-osmolality and hyponatremia (principal); M47.812 Spondylosis without myelopathy or radiculopathy, cervical region; R04.0 Epistaxis; K57.30 Diverticulosis of large intestine without perforation or abscess without bleeding; G45.9 Transient cerebral ischemic attack, unspecified
CPT/HCPCS: 36415; 80048; 85027; 85610; 85730

== ENCOUNTER 2022-05-17 03:26 | Outpatient (CLI) | payer MEDICARE, SELFPAY ==
[2022-05-17 10:34] LABS: ALT 49 U/L (14-59); AST 22 U/L (15-37); Albumin 4.1 g/dL (3.4-5.0); Alkaline Phosphatase 129 U/L (46-116); Anion Gap 7.9 mmol/L (3-11); BUN 13 mg/dL (7-18); Bilirubin, Total 0.4 mg/dL (0.2-1.0); CO2 28.1 mmol/L (21.0-32.0); CREATININE 0.8 mg/dL (0.55-1.02); Calcium 9.2 mg/dL (8.5-10.1); Calculated LDL 71 mg/dL (<100); Chloride 104 mmol/L (98-107); Cholesterol 161 mg/dL (<200); Estimated GFR 80.21 (mL/min/1.73m2); Glucose 106 mg/dL (74-106); HDL Cholesterol 76 mg/dL (40-60); Potassium 4.1 mmol/L (3.5-5.1); Sodium 140 mmol/L (136-145); Total Protein 8.2 g/dL (6.4-8.2); Triglyceride 72 mg/dL (<150)
== END 2022-05-17 03:27 | disposition home or self-care (01) ==
LOC: LBO 03:26
PROVIDERS: PCP Family Medicine; Visit Provider Family Medicine
DX: I10 Essential (primary) hypertension (principal); E11.9 Type 2 diabetes mellitus without complications; E87.1 Hypo-osmolality and hyponatremia; E78.5 Hyperlipidemia, unspecified
CPT/HCPCS: 36415; 80053; 80061; 83036

== ENCOUNTER 2022-11-11 02:01 | Outpatient (CLI) | payer MEDICARE, SELFPAY ==
[2022-11-11 12:46] LABS: ALT 48 U/L (14-59); AST 24 U/L (15-37); Alkaline Phosphatase 118 U/L (46-116); Anion Gap 8.3 mmol/L (3-11); BUN 13 mg/dL (7-18); Bilirubin, Total 0.4 mg/dL (0.2-1.0); CO2 27.7 mmol/L (21.0-32.0); CREATININE 0.7 mg/dL (0.55-1.02); Calcium 9.3 mg/dL (8.5-10.1); Chloride 105 mmol/L (98-107); Estimated GFR 94.15 (mL/min/1.73m2); Glucose 129 mg/dL (74-106); Potassium 4.1 mmol/L (3.5-5.1); Sodium 141 mmol/L (136-145); Total Protein 7.6 g/dL (6.4-8.2)
== END 2022-11-11 02:02 | disposition home or self-care (01) ==
LOC: LOS 02:01
PROVIDERS: PCP Family Medicine; Visit Provider Family Medicine
DX: I10 Essential (primary) hypertension (principal); E11.9 Type 2 diabetes mellitus without complications
CPT/HCPCS: 36415; 80053; 83036

== ENCOUNTER 2022-11-25 00:58 | Outpatient (CLI) | payer MEDICARE, SELFPAY ==
--- NOTE | 2022-11-25 07:15 | DI.RAD_ITS ---
Exam(s) XR HIP RT COMPLETE AP PELVIS EXAM: XR HIP RT COMPLETE AP PELVIS CLINICAL HISTORY: r hip pain,M25.551. TECHNIQUE: 2D digital imaging was performed of the right hip. Three images were obtained. AP pelvis and lateral right hip views were obtained. COMPARISON: CR RIGHT HIP COMPLETE from 10/29/2008 FINDINGS: BONES: No acute fracture is present. No bony destructive lesion is seen. JOINTS: No dislocation present. There is mild joint space narrowing of the hips bilaterally. SOFT TISSUE: Atherosclerosis is present. IMPRESSION: Mild joint space narrowing of the hips bilaterally. DATA REPOSITORY: RADIATION DOSE DELIVERED:
--- NOTE | 2022-11-25 07:15 | DI.RAD_ITS ---
Exam(s) XR LUMBAR SPINE COMPLETE EXAM: XR LUMBAR SPINE COMPLETE CLINICAL HISTORY: LOW BACK PAIN DOWN RT LEG AND RT HIP PAIN,M54.50. TECHNIQUE: 2D digital imaging was performed of the lumbar spine. Five images were obtained. AP, la teral, right oblique, left oblique and L5-S1 spot views were obtained. COMPARISON: CR XR lumbar spine complete from 01/07/2019 FINDINGS: BONES: No fracture or destructive lesion. Endplate osteophytes are seen throughout the lumbar spine. The findings are most marked at L2-L3 and L3-L4. Degenerative changes of the facets are seen at L4-L 5. DISKS: There is disc space narrowing and a vacuum disc at L4-L5. There is mild disc space narrowing at L2-L3. ALIGNMENT: Lumbar spinal alignment is within normal limits. No spondylolysis or spondylolisthesis. SOFT TISSUE: Atherosclerosis is present. IMPRESSION: Moderate degenerative changes in the lumbar spine. DATA REPOSITORY: RADIATION DOSE DELIVERED:
== END 2022-11-25 01:18 ==
LOC: DI 00:59
PROVIDERS: PCP Family Medicine; Visit Provider Family Medicine
DX: M25.551 Pain in right hip (principal); M54.50 Low back pain, unspecified; M79.604 Pain in right leg; M16.0 Bilateral primary osteoarthritis of hip; M51.36 Other intervertebral disc degeneration, lumbar region
CPT/HCPCS: 72110; 73502

== ENCOUNTER → 2023-06-19 07:56 | Outpatient (BNVA) | payer MEDICARE, SELFPAY | PROVIDERS: PCP Family Medicine; Referring Provider Family Medicine; Visit Provider Student in an Organized Health Care Education/Training Program | DX: M65.311 Trigger thumb, right thumb (principal) | CPT/HCPCS: 99213 ==

== ENCOUNTER 2023-07-04 10:22 | Day surgery (SDC) | payer MEDICARE, SELFPAY ==
[2023-07-04 10:42] VITALS: BP 153/59; PULSE 68; RESP 18; TEMP 36.9; O2SAT 98
--- NOTE | 2023-07-04 11:26 | W.PM.DSUDISC ---
Date of service: 07/04/23 Time of Service: 11:29 Discharge Plan Disposition Patient Disposition: Home Condition: Good Discharge Details Reason For Visit: Right trigger thumb Attending Provider: Nelson Joya Primary Care Provider: Megan Jimenez Home Meds and New Rx's Prescriptions: New acetaminophen 500 mg tablet 500 mg PO Q6H PRN (Reason: pain) Qty: 60 2RF ibuprofen 600 mg tablet 600 mg PO TID PRN (Reason: pain) Qty: 60 0RF Continued mupirocin calcium 2 % cream 1 applic Topical BID PRN aspirin 81 mg tablet,chewable 81 mg PO DAILY propranolol 60 mg tablet 60 mg PO BID PRN (Reason: tremor(s)) Qty: 180 4RF multivitamin Tablet 1 tab PO DAILY triamcinolone acetonide 0.1 % ointment 1 applic Topical BID PRN (Reason: psoriasis) Qty: 80 4RF Rx Instructions: apply on arm as directed 0.1% strength mupirocin 2 % ointment 1 applic topical BID Qty: 22 0RF ascorbic acid (vitamin C) 1,000 mg capsule 1 g PO Q6H metoprolol succinate 25 mg tablet extended release 24 hr 25 mg PO DAILY Qty: 90 5RF cholecalciferol (vitamin D3) 25 mcg (1,000 unit) capsule 25 mcg PO DAILY clobetasol-emollient 0.05 % cream 2 - 4 gm Topical BID PRN (Reason: psoriasis) Qty: 3 6RF Rx Instructions: dispense 60gm tube if avail. Use on psoriasis atorvastatin 80 mg tablet 80 mg PO DAILY Qty: 90 4RF amlodipine 10 mg tablet 10 mg PO DAILY Qty: 90 12RF losartan [Cozaar] 100 mg tablet 100 mg PO DAILY Qty: 90 3RF cyclosporine 0.05 % dropperette Patient Comments: INSTILL 1 DROP INTO BOTH EYES TWICE A DAY Discharge Instructions Stand Alone Forms: [place] Finger Release Referrals: Nelson Joya MD [ [facility] STAFF PHYSICIAN] - Activity:: Elevate Remove Dressings/Wound Care:: 48 hours Shower/Bathe:: 48 hours Diet:: As Tolerated Discharge Orders Discharge Orders: Discharge Order (Routine); Ordered 07/04/23 Ordered By: Angelia Ragland
[2023-07-04] MEDS: Lidocaine 1% Multi-Dose W/EPI 1/100,000 50 ML VIAL (13:57)
[2023-07-04] MEDS: Sodium Bicarbonate 50 MEQ/50 ML VIAL (13:59)
[2023-07-04 14:05] VITALS: BP 159/58; RESP 16; TEMP 36.7; O2SAT 97
--- NOTE | 2023-07-04 23:34 | W.PM.OP ---
Date of service: 07/04/23 Time of Service: 13:30 Operative Note Operative Note DATE OF PROCEDURE: 07/04/23 PRE-OP DIAGNOSIS: Right Trigger Thumb POST-OP DIAGNOSIS: same PROCEDURE: Trigger Finger Release - Right Thumb SURGEON: Nelson Joya ANESTHESIA TYPE: Local By Surgeon Refer to Anesthesia Record PATHOLOGY: none sent COMPLICATIONS: None Patient was transported to: same day Patient's condition: stable Indications: I have seen Babita in clinic for symptoms of a trigger finger. The catching, clicking, locking, and pain limited function. The diagnosis of trigger finger was evident. The symptoms had not responded to conservative measures. I discussed trigger finger release with the patient. I reviewed the risks of the procedure to include, but not limited to, bleeding, infection, pain, stiffness, incomplete release, damage to nerves or vessels, continued catching, recurrence. Despite these risks, the patient elected to proceed. Findings: There was a tightened A1 ld which was released. The flexor tendons were inspected and the patient was able to move the finger without any catching, clicking, or locking. Procedure Description: Babita was greeted in the preoperative holding area where the correct side was identified and marked. The consent was reviewed with the patient and signed. All questions were answered. She was taken back to the operating room. The patient was placed into the supine position on the operating room table with the right arm on an arm board. All bony prominences were well padded. No prophylactic antibiotics were administered since this was a clean, elective hand surgical case. The right arm was then prepped with Chloraprep and draped in a standard fashion with stockinette and extremity drape. A timeout to confirm correct identity, side and site, procedure, allergies, anesthesia, and medical concerns was performed. The surgical site was marked as a longitudinal incision directly over the A1 ld of the involved digit. This was confirmed with palpation during finger flexion. This area, overlying the metacarpal head, was then anesthetized with 1% Lidocaine. The patient tolerated this well and once the anesthetic had setup, the procedure began. A longitudinal incision was made through skin only, approximately 1cm. The deep tissues were dissected bluntly. Once the A1 ld and flexor tendons were identified the soft tissue including neurovascular structures were retracted medially and laterally. There were no crossing structures over the A1 ld. The proximal edge of the ld was identified and the ld was incised with tenotomy scissors. There was a release of the tendons once this was fully released. The tendons were then removed from the wound and inspected. Excess synovium was resected. The tendons were then returned and the patient was asked to move the finger into deep flexion and back to extension. There was no recreation of the pre-operative symptoms. The hand was then once more inspected for any A0 ld or area of possible constriction. The wound was then irrigated and the skin was closed with a 4-0 Nylon. This was dressed with gauze and a Conform dressing. The patient tolerated the procedure well and was returned to the Same Day Surgery area in a stable condition suffering no known complication.
== END 2023-07-04 14:26 | disposition home or self-care (01) ==
PROVIDERS: PCP Family Medicine; Visit Provider Student in an Organized Health Care Education/Training Program
PROC: (CPT 26055; principal; 2023-07-04 14:45)
DX: M65.311 Trigger thumb, right thumb (principal)
CPT/HCPCS: 26055

== ENCOUNTER → 2023-07-17 08:18 | Outpatient (BNVA) | payer MEDICARE, SELFPAY | PROVIDERS: PCP Family Medicine; Referring Provider Family Medicine | DX: Z47.89 Encounter for other orthopedic aftercare (principal); M65.311 Trigger thumb, right thumb ==

== ENCOUNTER → 2023-08-28 11:09 | Outpatient (BNVA) | payer MEDICARE, SELFPAY | PROVIDERS: PCP Family Medicine; Referring Provider Family Medicine; Visit Provider Student in an Organized Health Care Education/Training Program | DX: Z47.89 Encounter for other orthopedic aftercare (principal); M65.311 Trigger thumb, right thumb ==

== ENCOUNTER 2023-12-18 05:45 | Outpatient (CLI) | payer MEDICARE, SELFPAY ==
[2023-12-18 07:40] LABS: HCT 44.3 % (36.0-46.0); HGB 14.8 g/dL (11.2-15.7); MCHC 33.4 % (32.0-36.0); MCV 93 fL (80-95); MPV 10.4 fL (8.0-11.0); Platelet Count 234 10^3/uL (130-400); RBC 4.78 10^6/uL (3.93-5.22); RDW 13.4 % (11.7-14.6); RDW-SD 45.6 fL; WBC 7.42 10^3/uL (4.4-10.8)
[2023-12-18 08:49] LABS: ALT 117 U/L (14-59); AST 58 U/L (15-37); Alkaline Phosphatase 162 U/L (46-116); Anion Gap 11.6 mmol/L (3-11); BUN 16 mg/dL (7-18); Bilirubin, Total 0.4 mg/dL (0.2-1.0); CO2 27.4 mmol/L (21.0-32.0); CREATININE 0.8 mg/dL (0.55-1.02); Calcium 9.5 mg/dL (8.5-10.1); Calculated LDL 83 mg/dL (<100); Chloride 102 mmol/L (98-107); Cholesterol 173 mg/dL (<200); Estimated GFR 79.71 (mL/min/1.73m2); Glucose 117 mg/dL (74-106); HDL Cholesterol 70 mg/dL (40-60); Potassium 4.2 mmol/L (3.5-5.1); Sodium 141 mmol/L (136-145); Total Protein 7.9 g/dL (6.4-8.2); Triglyceride 101 mg/dL (<150)
== END 2023-12-18 05:46 | disposition home or self-care (01) ==
LOC: LBO 05:45
PROVIDERS: PCP Family Medicine; Visit Provider Family Medicine
DX: I10 Essential (primary) hypertension (principal); K21.00 Gastro-esophageal reflux disease with esophagitis, without bleeding
CPT/HCPCS: 36415; 80053; 80061; 85027

== ENCOUNTER 2024-01-08 11:47 | Outpatient (CLI) | payer MEDICARE, SELFPAY ==
[2024-01-08 12:20] LABS: ALT 98 U/L (14-59); AST 48 U/L (15-37); Albumin 4.2 g/dL (3.4-5.0); Alkaline Phosphatase 142 U/L (46-116); Anion Gap 8.6 mmol/L (3-11); BUN 14 mg/dL (7-18); Bilirubin, Total 0.5 mg/dL (0.2-1.0); CO2 28.4 mmol/L (21.0-32.0); CREATININE 0.7 mg/dL (0.55-1.02); Chloride 105 mmol/L (98-107); Estimated GFR 93.56 (mL/min/1.73m2); GGT 97 U/L (5-55); Glucose 104 mg/dL (74-106); Sodium 142 mmol/L (136-145); Total Protein 8.1 g/dL (6.4-8.2)
[2024-01-08 19:33] LABS: Hepatitis A Antibody IgM Negative (Negative); Hepatitis B Core Antibody Negative (Negative); Hepatitis B surface Ag Negative (Negative); Hepatitis C Ab w Rflx HCV PCR Negative (Negative)
== END 2024-01-08 11:48 | disposition home or self-care (01) ==
LOC: LBO 11:49
PROVIDERS: PCP Family Medicine; Visit Provider Family Medicine
DX: I10 Essential (primary) hypertension (principal); R74.8 Abnormal levels of other serum enzymes
CPT/HCPCS: 36415; 80053; 86704; 86709; 86803; 87340; 82977

== ENCOUNTER 2024-04-02 01:51 | Outpatient (CLI) | payer MEDICARE, SELFPAY ==
--- NOTE | 2024-04-02 11:41 | DI.CTLCSR_ITS ---
Exam(s) CT CHEST LUNG CANCER SCREEN EXAM: CT CHEST LUNG CANCER SCREEN CLINICAL HISTORY: Screening for lung cancer,former smoker, z87.891 TECHNIQUE: Imaging Protocol: Axial computed tomography images with coronal and sagittal reformatted images were created and reviewed COMPARISON: No exams were available for comparison FINDINGS: Tracheobronchial tree: Patent where visualized. No bronchiectasis. Pulmonary parenchyma: No consolidation or dominant measurable mass. There is mild pulmonary fibrosis. Lung Nodules: There is a 7.3 mm nodule in the posterior aspect of the right lower lobe (series 2, sabas ge 150). There also 2 nodule seen in the right upper lobe (series 2, image 111). They each measure 4 mm. Mediastinum and Katherine: No dominant adenopathy or fluid collection. The esophagus is unremarkable. Thyroid gland: Unremarkable. Lymph nodes: Unremarkable. Pleura: No effusion or pneumothorax. Heart: The heart is not dilated. Coronary artery calcifications are present. No pericardial effusion . Aorta: Thoracic aorta non-dilated.Atherosclerotic calcification is present. Upper abdomen: Unremarkable. Soft Tissues: Calcifications are seen in the left breast. There appears to have been a prior partial left mastectomy. Please correlate with prior mammograms and clinical history. Bones: Within normal limits. IMPRESSION: Pulmonary nodules as described above. The largest measures 7.3 cm. Lung RADS Cat 4A - Suspicious: Findings for which additional diagnostic testing and/or tissue samplin g recommended Lung-RADS 1.0 CATEGORIES: Category 0 - Prior chest CT exam(s) being located for comparison. Category 1 - Annual screening in 12 months. No nodules or definitely benign nodules. Category 2 - Annual screening in 12 months. Benign appearance. Nodules with low likelihood of becomin g active cancer. Category 3 - 6-month follow-up. Probably benign. Short-term follow-up suggested. Nodules with low lik elihood of becoming active cancer. Category 4A - 3-month follow-up and CT/PET if >8 mm in size. Suspicious finding. Findings which requi re additional testing. Category 4B - Findings which require additional testing and tissue sampling. Suspicious finding. Category 4X - Category 3 or 4 nodules with additional features or imaging findings that increases the suspicion of malignancy. Modifier S- Potentially clinically significant finding. (Non lung cancer) RADIATION DOSE DELIVERED: Total DLP Total DLP DATA REPOSITORY: All CT scans at this facility are submitted to the National Radiology Data Registry (NRDR) Dose Index Registry (DIR) with the [employer] (ACR). RADIATION OPTIMIZATION: All CT scans at this facility use at least one of these dose optimization te chniques: automated exposure control; mA and/or kV adjustment per patient size (includes targeted exa ms where dose is matched to clinical indication); or iterative reconstruction.
== END 2024-04-02 02:11 ==
LOC: DI 01:51
PROVIDERS: PCP Family Medicine; Visit Provider Family Medicine
DX: Z87.891 Personal history of nicotine dependence (principal); Z12.2 Encounter for screening for malignant neoplasm of respiratory organs; R91.8 Other nonspecific abnormal finding of lung field
CPT/HCPCS: 71271

== ENCOUNTER 2024-04-23 09:34 | Outpatient (CLI) | payer MEDICARE, SELFPAY ==
[2024-04-23 08:54] LABS: ALT 65 U/L (14-59); AST 35 U/L (15-37); Alkaline Phosphatase 138 U/L (46-116); Anion Gap 8.2 mmol/L (3-11); BUN 15 mg/dL (7-18); Bilirubin, Total 0.44 mg/dL (0.2-1.0); CO2 26.8 mmol/L (21.0-32.0); CREATININE 0.8 mg/dL (0.55-1.02); Chloride 106 mmol/L (98-107); Estimated GFR 79.22 (mL/min/1.73m2); Glucose 122 mg/dL (74-106); Potassium 4.1 mmol/L (3.5-5.1); Sodium 141 mmol/L (136-145); Total Protein 8.1 g/dL (6.4-8.2)
== END 2024-04-23 09:35 | disposition home or self-care (01) ==
LOC: LBO 09:35
PROVIDERS: PCP Family Medicine; Visit Provider Family Medicine
DX: I10 Essential (primary) hypertension (principal); R74.8 Abnormal levels of other serum enzymes; E11.9 Type 2 diabetes mellitus without complications; H65.21 Chronic serous otitis media, right ear; H73.823 Atrophic nonflaccid tympanic membrane, bilateral; H73.893 Other specified disorders of tympanic membrane, bilateral
CPT/HCPCS: 36415; 80053; 83036

== ENCOUNTER 2024-07-03 00:44 | Outpatient (CLI) | payer MEDICARE, SELFPAY ==
--- NOTE | 2024-07-03 06:45 | DI.CT_ITS ---
Exam(s) CT CHEST WO EXAM: CT CHEST WO CLINICAL HISTORY: f/u 7.3 mm nodule,r91.1 TECHNIQUE: Imaging Protocol: Axial computed tomography images with coronal and sagittal reformatted images were created and reviewed. Computer aided detection (CAD) was utilized. CONTRAST MATERIAL: Noncontrast COMPARISON: CT CT CHEST LUNG CANCER SCREEN from 04/02/2024 FINDINGS: Pulmonary parenchyma: No consolidation. Stable 7 x 6 millimeter nodule posterior right lower lobe. S table 3 and 4 millimeter nodules right upper lobe. Stable 3 millimeter nodule left lateral lung bas e. Interstitial changes again noted, greater peripherally and in the lower lobes. Mild emphysematou s changes. Tracheobronchial tree: No bronchiectasis or mucous plugging. Mediastinum and Katherine: No dominant adenopathy or fluid collection. Pleura: No effusion. No pneumothorax. Heart: The heart is mildly dilated. Moderate coronary artery calcifications are seen. Aorta: Thoracic aorta non-dilated. Mild to moderate atherosclerotic changes. Upper abdomen: No acute findings. Bones: Mild degenerative changes in the spine. Soft tissues: Coarse calcifications again noted in the left breast, consistent prior lumpectomy. IMPRESSION: Stable 7 x 6 millimeter nodule posterior right lower lobe. Other smaller nodules are also stable. R ecommend follow-up chest CT in 6 months. RADIATION DOSE DELIVERED: 203.13mGy.cm Total DLP DATA REPOSITORY: All CT scans at this facility are submitted to the National Radiology Data Registry (NRDR) Dose Index Registry (DIR) with the [employer] ([employer]). RADIATION OPTIMIZATION: All CT scans at this facility use at least one of these dose optimization te chniques: automated exposure control; mA and/or kV adjustment per patient size (includes targeted exa ms where dose is matched to clinical indication); or iterative reconstruction.
== END 2024-07-03 01:04 ==
LOC: DI 00:44
PROVIDERS: PCP Family Medicine; Visit Provider Family Medicine
DX: R91.1 Solitary pulmonary nodule (principal)
CPT/HCPCS: 71250

== ENCOUNTER 2024-09-05 08:37 | Outpatient (CLI) | payer MEDICARE, SELFPAY ==
[2024-09-05 12:57] LABS: ALT 57 U/L (14-59); AST 27 U/L (15-37); Alkaline Phosphatase 162 U/L (46-116); BUN 15 mg/dL (7-18); Bilirubin, Total 0.58 mg/dL (0.2-1.0); CREATININE 0.9 mg/dL (0.55-1.02); Calcium 9.7 mg/dL (8.5-10.1); Chloride 104 mmol/L (98-107); Estimated GFR 68.77 (mL/min/1.73m2); Glucose 115 mg/dL (74-106); Potassium 4.3 mmol/L (3.5-5.1); Sodium 140 mmol/L (136-145)
== END 2024-09-05 08:38 | disposition home or self-care (01) ==
LOC: LOS 08:38
PROVIDERS: PCP Family Medicine; Referring Provider Family Medicine; Visit Provider Family Medicine
DX: I10 Essential (primary) hypertension (principal)
CPT/HCPCS: 36415; 80053

== ENCOUNTER 2024-09-10 01:30 | Outpatient (CLI) | payer MEDICARE, SELFPAY ==
--- NOTE | 2024-09-10 06:45 | DI.US_ITS ---
Exam(s) US ABDOMEN LIMITED EXAM: US ABDOMEN LIMITED CLINICAL HISTORY: elevated LFT, ? fatty liver TECHNIQUE: Ultrasound abdomen performed using standard protocol. COMPARISON: US US ECHOCARDIOGRAM W BUBBLES from 09/01/2021 FINDINGS: There is no ascites evident. LIVER: There are no hepatic lesions evident nor dilatation of intrahepatic ducts. No obvious steatos is evident. Liver echogenicity appears normal. GALLBLADDER/BILIARY: There are no gallstones. Gallbladder wall appears slightly thickened uniformly. However, not edematous and there is no pericholecystic fluid. The common hepatic duct isnot dilated, measuring 3-4mm at the level of jann hepatis. PANCREAS: There is no evidence of pancreatic mass nor dilatation of the pancreatic duct. RIGHT KIDNEY:No evidence of solid mass, calculus, nor hydronephrosis. No cortical cysts evident. IMPRESSION: 1. No evidence of cholelithiasis nor dilatation of the biliary tree. However, the gallbladder wall appears slightly uniformly thickened. 2. Liver echotexture appears normal. No ultrasound evidence of fatty liver, as per request. 3. No other significant right upper quadrant ultrasound findings and there is no ascites. DATA REPOSITORY:
== END 2024-09-10 01:50 ==
LOC: DI 01:31
PROVIDERS: PCP Family Medicine; Visit Provider Family Medicine
DX: R74.8 Abnormal levels of other serum enzymes (principal)
CPT/HCPCS: 76705

== ENCOUNTER 2024-10-25 12:17 | Emergency (ER) | payer MEDICARE, SELFPAY ==
[2024-10-25] VITALS (35 sets, daily range): BP systolic 110–183; BP diastolic 14–97; PULSE 85–113; RESP 11–26; TEMP 37; O2SAT 87–100
--- NOTE | 2024-10-25 12:15 | RT.EKG_ITS ---
APPROVED REPORT Exam: Resting ECG Reason for Exam: Syncopal; Patient Location: E HR:109 bpm ECG Measurements Heart Rate 109 AXIS VT [id number] P [id number] QRSd 87 QRS -28 QT 351 T -3 QTc 473 Conclusion Atrial flutter/fibrillation...A-rate 221, multiple Ps Inferior infarct, old...Q >35mS, II III aVF Physician: No Stemi, unchanged from prior ekg
--- NOTE | 2024-10-25 12:30 | DI.RAD_ITS ---
Exam(s) XR CHEST 2V PA LATERAL EXAM: XR CHEST 2V PA LATERAL CLINICAL HISTORY: near syncope. TECHNIQUE: 2D digital imaging was performed. COMPARISON: CT CT CHEST WO from 07/03/2024 FINDINGS: 2 views: Heart size is mildly prominent.. The mediastinum is not widened Right lung is clear. Calcifications over the left lung are noted which are mostly within the left br east as seen on prior CT scan of 07/03/2024. However, there appears to be some mild increased markin gs in left lower lobe. Appears to be mild redistribution pattern but no airspace pulmonary edema. No pleural effusions. IMPRESSION: Possible mild infiltrate left lower lobe. No pleural effusions. Left breast calcifications. DATA REPOSITORY: RADIATION DOSE DELIVERED:
[2024-10-25 13:03] LABS: Abs Immature Grans 0.03 10^3/uL (0.0-0.06); Absolute Eosinophil Count 3.17 10^3/uL (0.0-0.7); Absolute Lymphocyte Count 1.71 10^3/uL (1.2-3.4); Basophils % 0.2 %; Eosinophils % 26.4 %; HCT 42.9 % (36.0-46.0); HGB 14.4 g/dL (11.2-15.7); Immature Grans % 0.2 %; Lymphocytes % 14.2 %; MCH 30.5 pg (27.0-33.0); MCHC 33.6 % (32.0-36.0); MCV 91 fL (80-95); MPV 10.1 fL (8.0-11.0); Monocytes % 6.2 %; Neutrophils % 52.8 %; Platelet Count 237 10^3/uL (130-400); RBC 4.72 10^6/uL (3.93-5.22); RDW-SD 46.8 fL; WBC 12.02 10^3/uL (4.4-10.8)
[2024-10-25 13:11] LABS: Absolute Basophil Count 0.02 10^3/uL (0.0-0.2); Absolute Monocyte Count 0.75 10^3/uL (0.1-0.8); Absolute Neutrophil Count 6.35 10^3/uL (1.2-6.7)
[2024-10-25 13:12] LABS: Diff Comment Diff Reviewed; RBC Morphology Normal
[2024-10-25 13:22] LABS: INR 1.1 (0.9-1.1); PTT Activated 25.9 sec (20.6-30.2); Prothrombin Time 10.9 sec (9.1-11.1)
[2024-10-25 13:31] LABS: ALT 61 U/L (14-59); AST 29 U/L (15-37); Albumin 3.8 g/dL (3.4-5.0); Alkaline Phosphatase 156 U/L (46-116); Anion Gap 10.6 mmol/L (3-11); BUN 25 mg/dL (7-18); Bilirubin, Total 0.5 mg/dL (0.2-1.0); CO2 26.4 mmol/L (21.0-32.0); CREATININE 1.3 mg/dL (0.55-1.02); Calcium 9.3 mg/dL (8.5-10.1); Chloride 102 mmol/L (98-107); Estimated GFR 44.24 (mL/min/1.73m2); Glucose 121 mg/dL (74-106); Lipase 49 U/L (<78); Magnesium 1.3 mg/dL (1.8-2.4); Sodium 139 mmol/L (136-145); TSH (W/Ref FT4) 1.87 uIU/mL (0.36-3.74); Total Protein 7.5 g/dL (6.4-8.2); Troponin I 7 ng/L (<or=51)
[2024-10-25 13:33] LABS: Bilirubin Negative (Negative); Blood Negative (Negative); Clarity Clear (Clear); Glucose Negative (Negative); Ketones Negative (Negative); Leukocyte Esterase Trace (Negative); Nitrite Negative (Negative); Urobilinogen 0.2 mg/dL (Up to 0.2); pH 6.5 (5-8)
[2024-10-25 13:40] LABS: WBC 0-2 HPF (0-5)
[2024-10-25 13:41] LABS: Bacteria Negative HPF (Negative); C & S Indicated? No; Casts Negative LPF (Negative); Crystals Negative HPF (Negative); Epithelial Cells Few HPF (Negative); Mucus Negative (Negative); Other Cells Negative (Negative); RBC Negative HPF (0-2)
[2024-10-25 14:17] LABS: Troponin I 5 ng/L (<or=51)
--- NOTE | 2024-10-25 14:26 | W.ED.GENAD ---
Discharge Plan Discharge Details Chief Complaint: Dizzy/Sync Primary Care Provider: Megan Jimenez ED Provider: Kerwin Mcdonald Home Meds and New Rx's Prescriptions: No Action aspirin 81 mg tablet,chewable 81 mg PO DAILY propranolol 60 mg tablet 60 mg PO BID PRN (Reason: tremor(s)) Qty: 180 4RF cyanocobalamin (vitamin B-12) 1,000 mcg tablet 3,000 mcg PO DAILY Move Free Advanced PO DAILY Patient Comments: Glucosamine 1500mg MSM 1500mg Chondroitin 200mg cholecalciferol (vitamin D3) 25 mcg (1,000 unit) capsule 25 mcg PO DAILY ascorbic acid (vitamin C) 1,000 mg capsule 1 g PO DAILY hydrochlorothiazide 12.5 mg tablet 12.5 mg PO QAM Qty: 90 4RF albuterol sulfate [Ventolin HFA] 90 mcg/actuation HFA aerosol inhaler 2 puff inhalation Q6H PRN (Reason: shortness of breath or wheezing) Qty: 8.5 4RF cefpodoxime 200 mg tablet 200 mg PO BID Qty: 14 0RF Rx Instructions: must administer with a meal/food clobetasol-emollient 0.05 % cream 2 - 4 gm Topical BID PRN (Reason: psoriasis) Qty: 3 6RF Rx Instructions: dispense 60gm tube if avail. Use on psoriasis losartan [Cozaar] 100 mg tablet 100 mg PO DAILY Qty: 90 3RF atorvastatin 80 mg tablet 80 mg PO DAILY Qty: 90 4RF amlodipine 10 mg tablet 10 mg PO DAILY Qty: 90 12RF metoprolol succinate 25 mg tablet extended release 24 hr 25 mg PO DAILY Qty: 90 3RF acetaminophen 500 mg tablet 500 mg PO Q6H PRN (Reason: pain) Qty: 60 2RF ibuprofen 600 mg tablet 600 mg PO TID PRN (Reason: pain) Qty: 60 0RF cyclosporine 0.05 % dropperette ophthalmic (eye) PRN Patient Comments: INSTILL 1 DROP INTO BOTH EYES TWICE A DAY HPI General Date/Time Provider Initiated Documentation: 10/25/24 12:32. HPI Narrative: 69 year-old female presents to ED today by POV/ambulating with her daughter with a chief complaint of dizziness, onset about 1 hour prior to arrival, had one episode yesterday- with positional change, reports some vibrating in her chest but no chest pain with onset over weeks. Quality described as no chest pain, no shortness of breath, non-exercise related, just felt lightheaded and nearly fainted, no radiation to fall, headstrike, nausea/vomiting, cough, shortness of breath, fever, bowel/urinary changes, vertigo, visual changes, endorses headache. Severity is described as moderate to severe for dizziness. Palliating factors include nothing specific attempted. Provoking factors include nothing specific. Events leading up to the incident/Associated Symptoms: Patient has history of stroke in the remote past, denies any cardiac history. Patient not anticoagulated. Related Data Home Medications ?Medication ?Instructions ?Recorded ?Confirmed aspirin 81 mg chewable tablet 81 mg PO DAILY 01/07/19 09/05/24 clobetasol-emollient 0.05 % 2 - 4 gm topical BID PRN psoriasis 02/25/20 09/05/24 topical cream #3 tubes propranolol 60 mg tablet 60 mg PO BID PRN tremor(s) #180 12/24/20 09/05/24 tabs cholecalciferol (vitamin D3) 25 25 mcg PO DAILY 06/19/23 09/05/24 mcg (1,000 unit) capsule acetaminophen 500 mg tablet 500 mg PO Q6H PRN pain #60 tabs 07/04/23 09/05/24 ibuprofen 600 mg tablet 600 mg PO TID PRN pain #60 tabs 07/04/23 09/05/24 losartan 100 mg tablet (Cozaar) 100 mg PO DAILY #90 tab-caps 12/25/23 09/05/24 atorvastatin 80 mg tablet 80 mg PO DAILY #90 tab-caps 02/02/24 09/05/24 amlodipine 10 mg tablet 10 mg PO DAILY #90 tab-caps 02/12/24 09/05/24 Move Free Advanced PO DAILY 02/27/24 09/05/24 cyanocobalamin (vitamin B-12) 3,000 mcg PO DAILY 02/27/24 09/05/24 1,000 mcg tablet metoprolol succinate 25 mg 25 mg PO DAILY #90 tabs 07/15/24 09/05/24 tablet,extended release 24 hr albuterol sulfate 90 mcg/actuation 2 puff inhalation Q6H PRN 09/05/24 09/05/24 aerosol inhaler (Ventolin HFA) shortness of breath or wheezing #8.5 grams ascorbic acid (vitamin C) 1,000 mg 1 g PO DAILY 09/05/24 09/05/24 capsule cefpodoxime 200 mg tablet 200 mg PO BID #14 tabs 09/05/24 09/05/24 cyclosporine 0.05 % eye drops in a drp ophthalmic (eye) PRN 09/05/24 09/05/24 dropperette hydrochlorothiazide 12.5 mg tablet 12.5 mg PO QAM #90 tabs 09/05/24 09/05/24 Previous Rx's ?Medication ?Instructions ?Recorded clobetasol-emollient 0.05 % 2 - 4 gm topical BID PRN psoriasis 02/25/20 topical cream #3 tubes propranolol 60 mg tablet 60 mg PO BID PRN tremor(s) #180 12/24/20 tabs acetaminophen 500 mg tablet 500 mg PO Q6H PRN pain #60 tabs 07/04/23 ibuprofen 600 mg tablet 600 mg PO TID PRN pain #60 tabs 07/04/23 losartan 100 mg tablet (Cozaar) 100 mg PO DAILY #90 tab-caps 12/25/23 atorvastatin 80 mg tablet 80 mg PO DAILY #90 tab-caps 02/02/24 amlodipine 10 mg tablet 10 mg PO DAILY #90 tab-caps 02/12/24 metoprolol succinate 25 mg 25 mg PO DAILY #90 tabs 07/15/24 tablet,extended release 24 hr albuterol sulfate 90 mcg/actuation 2 puff inhalation Q6H PRN 09/05/24 aerosol inhaler (Ventolin HFA) shortness of breath or wheezing #8.5 grams cefpodoxime 200 mg tablet 200 mg PO BID #14 tabs 09/05/24 hydrochlorothiazide 12.5 mg tablet 12.5 mg PO QAM #90 tabs 09/05/24 Allergies Allergy/AdvReac Type Severity Reaction Status Date / Time erythromycin base Allergy Intermediate RASH, Verified 10/25/24 12:30 HIVES, BLISTERS latex Allergy Intermediate RASH Verified 10/25/24 12:30 Penicillins Allergy Intermediate HIVES Verified 10/25/24 12:30 Sulfa (Sulfonamide Allergy Intermediate SKIN RASH Verified 10/25/24 12:30 Antibiotics) Tetracyclines Allergy Intermediate RASH, Verified 10/25/24 12:30 HIVES, BLISTERS neomycin Allergy Unknown Rash Verified 10/25/24 12:30 General Stated Complaint: Dizzy/Sync ALEX: 3 Review of Systems All systems reviewed & are unremarkable except as noted in HPI and below Exam Narrative Exam Narrative: GENERAL APPEARANCE: Well-nourished, non-toxic, awake and alert, atraumatic, no acute distress. SKIN: Warm, pink, dry, intact, without rashes/lesions/ulcerations. HEAD: Normocephalic, atraumatic, normal hair distribution for gender/age. EYES: Normal conjunctiva, no exudates on lids/lashes. ENT: Nares patent, no circumoral cyanosis, no facial swelling NECK: Supple, trachea midline, painless cervical ROM. LUNGS/CHEST: Lungs CTA bilaterally, non-labored respirations, normal A/P diameter, symmetrical expansion, no chest wall deformity HEART (CV/PV): Regular rate and rhythm without murmur, no peripheral edema, no JVD. ABDOMEN: Soft, non-distended, no guarding. MSK: Normal ROM, no swelling/deformity to bilateral UEs or LEs, moving all extremities without weakness, no cyanosis, spine midline without tenderness, normal curvature. NEURO: Mental Status AAOx4 - alert to person, place, time, events No facial droop, no forehead involvement. Motor: No focal weakness - strength 5/5 in bilateral UEs and LEs, proximal and distal, symmetric. Sensory: sensation intact to light touch globally. Gait normal: patient ambulated without ataxia into ED room. PSYCH: euthymic, cooperative, pleasant, appropriate speech Course Vital Signs Vital signs: Vital Signs Temperature 37 C 10/25/24 12:25 Pulse 112 H 10/25/24 12:25 Respiratory Rate 24 10/25/24 12:25 Blood Pressure 183/94 H 10/25/24 12:25 Pulse Oximetry 100 10/25/24 12:25 Temperature 37 C 10/25/24 12:25 Temperature Source Temporal Artery Scan 10/25/24 12:25 Pulse 112 H 10/25/24 12:25 Respiratory Rate 24 10/25/24 12:25 Blood Pressure 183/94 H 10/25/24 12:25 Blood Pressure Position Supine 10/25/24 12:25 Pulse Oximetry 100 10/25/24 12:25 Oxygen Delivery Method Room Air 10/25/24 12:25 Oxygen Flow Rate 0 10/25/24 12:25 Pain Level 0 10/25/24 12:25 Lab/Test Results Lab/Test Results: Laboratory Tests Range/Units 10/25/24 10/25/24 10/25/24 12:56 13:22 13:46 WBC (4.4-10.8) 10^3/uL 12.02 H RBC (3.93-5.22) 10^6/uL 4.72 Hgb (11.2-15.7) g/dL 14.4 Hct (36.0-46.0) % 42.9 MCV (80-95) fL 91 MCH (27.0-33.0) pg 30.5 MCHC (32.0-36.0) % 33.6 RDW (11.7-14.6) % 14.0 Plt Count (130-400) 10^3/uL 237 MPV (8.0-11.0) fL 10.1 Immature Gran % % 0.2 Neutrophils % % 52.8 Lymphocytes % % 14.2 Monocytes % % 6.2 Eosinophils % % 26.4 Basophils % % 0.2 Nucleated RBC % (0.0-0.3) % 0.0 Absolute Neutrophils (1.2-6.7) 10^3/uL 6.35 Absolute Lymphocytes (1.2-3.4) 10^3/uL 1.71 Absolute Monocytes (0.1-0.8) 10^3/uL 0.75 Absolute Eosinophils (0.0-0.7) 10^3/uL 3.17 H Absolute Basophils (0.0-0.2) 10^3/uL 0.02 RBC Morphology Normal PT (9.1-11.1) sec 10.9 INR (0.9-1.1) 1.1 APTT (20.6-30.2) sec 25.9 Sodium (136-145) mmol/L 139 Potassium (3.5-5.1) mmol/L 4.0 Chloride (98-107) mmol/L 102 Carbon Dioxide (21.0-32.0) mmol/L 26.4 Anion Gap (3-11) mmol/L 10.6 BUN (7-18) mg/dL 25 H Creatinine (0.55-1.02) mg/dL 1.3 H Est GFR (CKD-EPI 2020) (mL/min/1.73m2) 44.24 Glucose (74-106) mg/dL 121 H Calcium (8.5-10.1) mg/dL 9.3 Magnesium (1.8-2.4) mg/dL 1.3 L Total Bilirubin (0.2-1.0) mg/dL 0.5 AST (15-37) U/L 29 ALT (14-59) U/L 61 H Alkaline Phosphatase (46-116) U/L 156 H Troponin I (<or=51) ng/L 7 5 Total Protein (6.4-8.2) g/dL 7.5 Albumin (3.4-5.0) g/dL 3.8 Lipase (<78) U/L 49 TSH (0.36-3.74) uIU/mL 1.87 Urine Color (Yellow) Yellow Urine Clarity (Clear) Clear Urine pH (5-8) 6.5 Ur Specific [place] (1.005-1.025) 1.010 Urine Protein (Neg-Trace) mg/dL Negative Urine Ketones (Negative) mg/dL Negative Urine Blood (Negative) Negative Urine Nitrite (Negative) Negative Urine Bilirubin (Negative) Negative Urine Urobilinogen (Up to 0.2) mg/dL 0.2 Ur Leukocyte Esterase (Negative) Trace H Urine RBC (0-2) HPF Negative Urine WBC (0-5) HPF 0-2 Ur Epithelial Cells (Negative) HPF Few Urine Crystals (Negative) HPF Negative Urine Bacteria (Negative) HPF Negative Urine Casts (Negative) LPF Negative Urine Mucus (Negative) Negative Urine Other (Negative) Negative Ur Culture Indicated? No Urine Glucose (Negative) mg/dL Negative Medical Decision Making This dictation utilizes [id number] dictation software and may contain unedited grammatical errors. 69 year-old female presents to ED today by POV/ambulating with her daughter with a chief complaint of dizziness, onset about 1 hour prior to arrival, had one episode yesterday- with positional change, reports some vibrating in her chest but no chest pain with onset over weeks. Quality described as no chest pain, no shortness of breath, non-exercise related, just felt lightheaded and nearly fainted, no radiation to fall, headstrike, nausea/vomiting, cough, shortness of breath, fever, bowel/urinary changes, vertigo, visual changes, endorses headache. Severity is described as moderate to severe for dizziness. Palliating factors include nothing specific attempted. Provoking factors include nothing specific. Events leading up to the incident/Associated Symptoms: Patient has history of stroke in the remote past, denies any cardiac history, was put on a new blood pressure medication about 1 month ago. Patients' medical history: Fibrocystic disease of breast, tobacco use, GERD, hypertension, migraine, elevated LFTs, fatigue, prediabetes, carotid stenosis. Family and social history: Lives at home with , eats normal diet, no recent travel or sick contacts, no EtOH or drug use. Pertinent exam findings / vital signs include benign cardiopulmonary exam, regular rate and rhythm, benign abdomen, neuro intact. Differential / pathologies of concern include dehydration, palpitations, arrhythmia, hypotension, unlikely pneumonia, no respiratory distress, unlikely ACS. Diagnostic studies of: -CBC, CMP, TSH, serial troponins, BNP, serial EKGs, chest x-ray, magnesium. -CBC shows nonspecific leukocytosis at 12 with no left shift -Coagulation studies benign -CMP shows mild RAFAEL with creatinine of 1.3, chronically elevated LFTs -Magnesium is low at 1.3 -Lipase negative -TSH within normal limits -UA is benign -Chest x-ray questions a left-sided infiltrate but the patient is completely asymptomatic Interventions of: -500mL IVF , [facility] [place] consult for possible flutter, need for anticoagulants? Patients Chadsvasc2 is 5. ED Course/Assessment/Plan: 69-year-old female has positional dizziness, recently started on new blood pressure medication, reports near syncope without chest pain or shortness of breath, nonexertional in nature and resolved by time of arrival, started 1 hour prior to arrival. Her initial EKG questions atrial fibrillation or flutter, her repeat is more regular there are identifiable P waves, I do's feel that she may be in a little bit of a sinus arrhythmia, there is no ischemic changes but does have some initial ST depressions on her first EKG, her troponins are negative she has mildly low magnesium and a mild RAFAEL not admittable, I did provide IV fluids and magnesium, patient is signed out to Marcelina Tavares NP with pending cardiology consult for question of starting anticoagulants with a [id number] 2 score of 5, I will place the patient on short-term follow-up list for cardiology practice here in [facility] for next week. Findings not consistent with A-fib with RVR, ACS, pneumonia. Disposition of Dizziness. Patient verbalized understanding of the plan and return to ED criteria and engaged in shared decision making. Medical Records Medical records reviewed: Yes I reviewed the patient's medical records. Imaging Data Radiologic Study: Attestation: I personally reviewed and interpreted this imaging study as follows: Imaging: X-Ray Lab Data Lab results reviewed: Yes I reviewed the patient's lab results. Labs: Laboratory Tests Range/Units 10/25/24 10/25/24 10/25/24 12:56 13:22 13:46 WBC (4.4-10.8) 10^3/uL 12.02 H RBC (3.93-5.22) 10^6/uL 4.72 Hgb (11.2-15.7) g/dL 14.4 Hct (36.0-46.0) % 42.9 MCV (80-95) fL 91 MCH (27.0-33.0) pg 30.5 MCHC (32.0-36.0) % 33.6 RDW (11.7-14.6) % 14.0 Plt Count (130-400) 10^3/uL 237 MPV (8.0-11.0) fL 10.1 Immature Gran % % 0.2 Neutrophils % % 52.8 Lymphocytes % % 14.2 Monocytes % % 6.2 Eosinophils % % 26.4 Basophils % % 0.2 Nucleated RBC % (0.0-0.3) % 0.0 Absolute Neutrophils (1.2-6.7) 10^3/uL 6.35 Absolute Lymphocytes (1.2-3.4) 10^3/uL 1.71 Absolute Monocytes (0.1-0.8) 10^3/uL 0.75 Absolute Eosinophils (0.0-0.7) 10^3/uL 3.17 H Absolute Basophils (0.0-0.2) 10^3/uL 0.02 RBC Morphology Normal PT (9.1-11.1) sec 10.9 INR (0.9-1.1) 1.1 APTT (20.6-30.2) sec 25.9 Sodium (136-145) mmol/L 139 Potassium (3.5-5.1) mmol/L 4.0 Chloride (98-107) mmol/L 102 Carbon Dioxide (21.0-32.0) mmol/L 26.4 Anion Gap (3-11) mmol/L 10.6 BUN (7-18) mg/dL 25 H Creatinine (0.55-1.02) mg/dL 1.3 H Est GFR (CKD-EPI 2020) (mL/min/1.73m2) 44.24 Glucose (74-106) mg/dL 121 H Calcium (8.5-10.1) mg/dL 9.3 Magnesium (1.8-2.4) mg/dL 1.3 L Total Bilirubin (0.2-1.0) mg/dL 0.5 AST (15-37) U/L 29 ALT (14-59) U/L 61 H Alkaline Phosphatase (46-116) U/L 156 H Troponin I (<or=51) ng/L 7 5 Total Protein (6.4-8.2) g/dL 7.5 Albumin (3.4-5.0) g/dL 3.8 Lipase (<78) U/L 49 TSH (0.36-3.74) uIU/mL 1.87 Urine Color (Yellow) Yellow Urine Clarity (Clear) Clear Urine pH (5-8) 6.5 Ur Specific [place] (1.005-1.025) 1.010 Urine Protein (Neg-Trace) mg/dL Negative Urine Ketones (Negative) mg/dL Negative Urine Blood (Negative) Negative Urine Nitrite (Negative) Negative Urine Bilirubin (Negative) Negative Urine Urobilinogen (Up to 0.2) mg/dL 0.2 Ur Leukocyte Esterase (Negative) Trace H Urine RBC (0-2) HPF Negative Urine WBC (0-5) HPF 0-2 Ur Epithelial Cells (Negative) HPF Few Urine Crystals (Negative) HPF Negative Urine Bacteria (Negative) HPF Negative Urine Casts (Negative) LPF Negative Urine Mucus (Negative) Negative Urine Other (Negative) Negative Ur Culture Indicated? No Urine Glucose (Negative) mg/dL Negative Quality:SDOH Health Related Social Needs: No Data to Display PFSH All Active Problems (Updated 07/04/24 @ 12:53 by Megan Jimenez MD, [place]) Abnormal CT lung screening (Acute) Pulmonary nodule seen on imaging study (Acute) Elevated liver enzymes (Acute) Right hip pain (Acute) Lumbar pain with radiation down right leg (Acute) Retraction pocket of tympanic membrane of both ears (Acute) Hyponatremia (Acute) Fatigue (Acute) Prediabetes (Acute) Left carotid stenosis (Acute) Occlusion of left internal carotid artery (Acute) TIA (transient ischemic attack) (Acute) Hypertrophic lichen planus of vulva (Acute) Colon polyp, hyperplastic (Acute ~11/2020) Thoracic back pain (Acute) Hyperlipidemia (Acute) Diverticula of colon (Acute) Conductive hearing loss in right ear (Acute 04/12/18) Arthritis (Acute) Chronic serous otitis media of right ear (Acute) 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 Tiny Disc herniation w/o nerve impingement Insomnia (Chronic) Gastroesophageal reflux disease with esophagitis (Chronic) Cervical spondylosis (Chronic 07/20/03) 2004 MRI C5-6 neural foraminal narrowing 2007 MRI DDD and C5-6 C6-7 neuroforaminal narrowing Medical History Epistaxis Smoker Pain in thumb joint with movement Photosensitization due to sun tanning bed Hx Fibrocystic breast disease Pain in thoracic spine Carpal tunnel syndrome Rotator cuff syndrome MRI of right shoulder w/partial thickness tear of supraspinatus, moderate atrophy and fluid in the bursa. S/p surgery Menopausal syndrome Mastoiditis Dermatitis Bx showing dermatitis and epidermal spongiosum Diarrhea Smoker Abnormal cervical Papanicolaou smear 07/20/02 +ASCUS; neg HPV Postmenopausal bleeding 07/20/03 neg endo bx fibroid on pelvic u/s Wart Pain in thumb joint with movement left thumb pain w/ abnormal x-rays 2006 Low back pain MRI 2008 DDD L4-5. Tiny Disc herniation w/o nerve impingement GERD (gastroesophageal reflux disease) Conductive hearing loss of both ears Cervical spondylosis Psoriasis Essential hypertension Rotator cuff syndrome Hx of breast cancer Migraine Insomnia Surgical History History of mandibular surgery Partial mandibulectomy for T1 N0 M0 squamous cell carcinoma, right gingiva, 2018 Trigger thumb, right thumb S/P Release: 07/04/2023 History of colonoscopy (~12/08/20) S/P carpal tunnel release 08/21/03 S/P breast lumpectomy 08/21/03 PROCEDURES MRI right shoulder with partial thickness tear of supraspinatus, moderate atrophy and fluid in the bursa. S/P surgery. Open Carpal Tunnel release (~06/2004) Colonoscopy - MAC (~12/2005) NEG Breast, Lumpectomy (~06/2004) Family History Mother , 72 Essential hypertension Heart disease Hyperlipidemia Stroke Father , 69 Essential hypertension Heart disease CHF Hyperlipidemia Myocardial infarction Stroke Brother , 60 Essential hypertension Heart disease Hyperlipidemia Stroke Sister Essential hypertension CHF (congestive heart failure) Heart disease Hyperlipidemia Maternal Grandfather No problems noted. Paternal Grandfather No problems noted. Maternal Grandmother No problems noted. Paternal Grandmother No problems noted. Sister Essential hypertension Lung cancer Hyperlipidemia Sister Essential hypertension Hyperlipidemia Daughter No problems noted. Daughter No problems noted. Social History Smoking/Tobacco Use Status: Former Tobacco Use tobacco type: cigarettes Quit Date: 08/21/17 Tobacco: How many years used: 40 Second Hand Exposure: Yes Smoking risk assessment performed?: Yes Alcohol Intake: current Alcohol Intake frequency: a few times a week Alcohol type: wine and hard liquor Drug use: Never Substance use type: does not use Caregiver/Support person: No Household members: spouse Communication Needs: Hard of Hearing Do you need help understanding health information?: Rarely Pets and animals: No Sexually active: Yes Do you think of yourself as: straight/heterosexual Current gender identity: female What is your relationship status?: How often do you talk on the phone with friends or family?: twice per week How often do you get together with friends or relatives?: three or more times per week How often do you attend caodaism or christianity services?: decline to answer Do you belong to any clubs or organized social groups?: no Panel score (0-1 are the most socially isolated patients): 2 What type of physical activity do you participate in: additional Details: hardly ever Sheba/[employer]ist: Restorationism Special sheba needs: No Seatbelt use: always Helmet use: No Drive intox or ride w/intox driver license technician: No (never) Do you feel safe at home: Yes Do you feel safe in your relationship?: Yes
--- NOTE | 2024-10-25 14:45 | RT.EKG_ITS ---
APPROVED REPORT Exam: Resting ECG Reason for Exam: AF Patient Location: E HR:93 bpm ECG Measurements Heart Rate 93 AXIS MI [id number] P [id number] QRSd 90 QRS 0 QT 337 T -62 QTc 426 Conclusion Atrial flutter...A-rate 217 Inferior infarct, age indeterminate...Q>35mS, T neg, II III aVF Physician: inverted t wavs in III, mild depression in lateral leads with no st elevation
[2024-10-25] MEDS: Normal Saline 500 ML IV (15:05)
--- NOTE | 2024-10-25 15:51 | ED.PROG_ITS ---
Date of service: 10/25/24 Time of Service: 15:51 Medical Decision Making Care assumed from provider (Tamara MOHAN) Please see their initial HPI, PE, and documentation. Discussed patient details and case and pending workup and disposition. Patient is hemodynamically stable, and alert and oriented. At the time of signout [facility] consult regarding patient atrial flutter versus sinus arrhythmia. Difficulties easily see cardiology they recommended metoprolol increased to 50 mg daily start Eliquis 5 mg twice a day and to be seen by cardiology next week. Discussed recommendations with patient who verbalized understanding. She is awaiting 2 g of magnesium which was ordered by my colleague, she is requesting Tylenol for headache which was ordered. Heart rate improved after the magnesium. She remained hemodynamically stable alert and oriented throughout the remainder of her stay. This text was generated using Learn[employer]ation system, please disregard any oddities of phrase or misspellings. Medical Records Medical records reviewed: Yes I reviewed the patient's medical records. Lab Data Lab results reviewed: Yes I reviewed the patient's lab results. Labs: Laboratory Tests Range/Units 10/25/24 10/25/24 10/25/24 12:56 13:22 13:46 WBC (4.4-10.8) 10^3/uL 12.02 H RBC (3.93-5.22) 10^6/uL 4.72 Hgb (11.2-15.7) g/dL 14.4 Hct (36.0-46.0) % 42.9 MCV (80-95) fL 91 MCH (27.0-33.0) pg 30.5 MCHC (32.0-36.0) % 33.6 RDW (11.7-14.6) % 14.0 Plt Count (130-400) 10^3/uL 237 MPV (8.0-11.0) fL 10.1 Immature Gran % % 0.2 Neutrophils % % 52.8 Lymphocytes % % 14.2 Monocytes % % 6.2 Eosinophils % % 26.4 Basophils % % 0.2 Nucleated RBC % (0.0-0.3) % 0.0 Absolute Neutrophils (1.2-6.7) 10^3/uL 6.35 Absolute Lymphocytes (1.2-3.4) 10^3/uL 1.71 Absolute Monocytes (0.1-0.8) 10^3/uL 0.75 Absolute Eosinophils (0.0-0.7) 10^3/uL 3.17 H Absolute Basophils (0.0-0.2) 10^3/uL 0.02 RBC Morphology Normal PT (9.1-11.1) sec 10.9 INR (0.9-1.1) 1.1 APTT (20.6-30.2) sec 25.9 Sodium (136-145) mmol/L 139 Potassium (3.5-5.1) mmol/L 4.0 Chloride (98-107) mmol/L 102 Carbon Dioxide (21.0-32.0) mmol/L 26.4 Anion Gap (3-11) mmol/L 10.6 BUN (7-18) mg/dL 25 H Creatinine (0.55-1.02) mg/dL 1.3 H Est GFR (CKD-EPI 2020) (mL/min/1.73m2) 44.24 Glucose (74-106) mg/dL 121 H Calcium (8.5-10.1) mg/dL 9.3 Magnesium (1.8-2.4) mg/dL 1.3 L Total Bilirubin (0.2-1.0) mg/dL 0.5 AST (15-37) U/L 29 ALT (14-59) U/L 61 H Alkaline Phosphatase (46-116) U/L 156 H Troponin I (<or=51) ng/L 7 5 Total Protein (6.4-8.2) g/dL 7.5 Albumin (3.4-5.0) g/dL 3.8 Lipase (<78) U/L 49 TSH (0.36-3.74) uIU/mL 1.87 Urine Color (Yellow) Yellow Urine Clarity (Clear) Clear Urine pH (5-8) 6.5 Ur Specific Hendricks (1.005-1.025) 1.010 Urine Protein (Neg-Trace) mg/dL Negative Urine Ketones (Negative) mg/dL Negative Urine Blood (Negative) Negative Urine Nitrite (Negative) Negative Urine Bilirubin (Negative) Negative Urine Urobilinogen (Up to 0.2) mg/dL 0.2 Ur Leukocyte Esterase (Negative) Trace H Urine RBC (0-2) HPF Negative Urine WBC (0-5) HPF 0-2 Ur Epithelial Cells (Negative) HPF Few Urine Crystals (Negative) HPF Negative Urine Bacteria (Negative) HPF Negative Urine Casts (Negative) LPF Negative Urine Mucus (Negative) Negative Urine Other (Negative) Negative Ur Culture Indicated? No Urine Glucose (Negative) mg/dL Negative Quality:SDOH Health Related Social Needs: No Data to Display Discharge Plan Disposition Patient Disposition: Home Condition: Stable Discharge Details Clinical Impression: Atrial fibrillation and flutter, Near syncope Primary Care Provider: Megan Jimenez ED Provider: Marcelina Tavares Home Meds and New Rx's Prescriptions: New Eliquis 5 mg tablet 5 mg PO BID 30 Days Qty: 60 1RF Rx Instructions: Take 1 tablet by mouth twice daily Continued aspirin 81 mg tablet,chewable 81 mg PO DAILY propranolol 60 mg tablet 60 mg PO BID PRN (Reason: tremor(s)) Qty: 180 4RF cyanocobalamin (vitamin B-12) 1,000 mcg tablet 3,000 mcg PO DAILY Move Free Advanced PO DAILY Patient Comments: Glucosamine 1500mg MSM 1500mg Chondroitin 200mg cholecalciferol (vitamin D3) 25 mcg (1,000 unit) capsule 25 mcg PO DAILY ascorbic acid (vitamin C) 1,000 mg capsule 1 g PO DAILY hydrochlorothiazide 12.5 mg tablet 12.5 mg PO QAM Qty: 90 4RF albuterol sulfate [Ventolin HFA] 90 mcg/actuation HFA aerosol inhaler 2 puff inhalation Q6H PRN (Reason: shortness of breath or wheezing) Qty: 8.5 4RF cefpodoxime 200 mg tablet 200 mg PO BID Qty: 14 0RF Rx Instructions: must administer with a meal/food clobetasol-emollient 0.05 % cream 2 - 4 gm Topical BID PRN (Reason: psoriasis) Qty: 3 6RF Rx Instructions: dispense 60gm tube if avail. Use on psoriasis losartan [Cozaar] 100 mg tablet 100 mg PO DAILY Qty: 90 3RF atorvastatin 80 mg tablet 80 mg PO DAILY Qty: 90 4RF amlodipine 10 mg tablet 10 mg PO DAILY Qty: 90 12RF acetaminophen 500 mg tablet 500 mg PO Q6H PRN (Reason: pain) Qty: 60 2RF ibuprofen 600 mg tablet 600 mg PO TID PRN (Reason: pain) Qty: 60 0RF cyclosporine 0.05 % dropperette ophthalmic (eye) PRN Patient Comments: INSTILL 1 DROP INTO BOTH EYES TWICE A DAY Changed metoprolol succinate 25 mg tablet extended release 24 hr 50 mg PO DAILY Qty: 90 3RF Discharge Instructions Instructions: Apixaban, Atrial Fibrillation and Atrial Flutter ED Additional Instructions: At this time it does appear that you are in a arrhythmia called atrial flutter. We did speak with cardiology at [facility] who recommend that you increase your metoprolol to 50 mg a day. Please take the Eliquis which is a blood thinners 5 mg twice daily as prescribed. You were given the first dose here in the department. Please follow-up next week with cardiology here at [facility], you are put on a care management list to assist you in getting an appointment. Follow up with primary care provider in 3-5 days. Return to ED sooner if any worsening chest pain, dizziness, feeling as if you are going to faint, sweaty or concerns. Thank you for allowing us to care for you today Referrals: Megan Jimenez MD, [place] [Primary Care Provider] - 2 weeks Mana Medley MD [ [facility] STAFF PHYSICIAN] - 1 week (New onset Atrial Flutter)
[2024-10-25] MEDS: MAGNESIUM SULFATE 2 GM/50 ML BAG IV_INF (16:29)
[2024-10-25] MEDS: Apixaban 5 MG TAB PO (16:29)
[2024-10-25] MEDS: Acetaminophen 325 MG TAB 650 MG PO (16:29)
== END 2024-10-25 17:57 | disposition home or self-care (01) ==
PROVIDERS: Physician Assistant; Emergency Provider Registered Nurse Emergency; PCP Family Medicine
DX: R55 Syncope and collapse (principal); I48.91 Unspecified atrial fibrillation; I10 Essential (primary) hypertension; Z86.73 Personal history of transient ischemic attack (TIA), and cerebral infarction without residual deficits; Z79.82 Long term (current) use of aspirin; Z87.891 Personal history of nicotine dependence
CPT/HCPCS: 00123; 80053; 83690; 93005; 96361; 96374; 99285; 71046; 81003; 81015; 83735; 84443; 84484; 85025; 85610; 85730; 93010; J3475

== ENCOUNTER 2024-10-28 13:11 | Outpatient (CLI) | payer MEDICARE, SELFPAY ==
--- NOTE | 2024-10-28 13:15 | RT.EKG_ITS ---
APPROVED REPORT Exam: Resting ECG Reason for Exam: dizziness r/o a fib/flutter Patient Location: O HR:90 bpm ECG Measurements Heart Rate 90 [place] [id number] P [id number] QRSd 94 QRS -5 QT 344 T -31 QTc 421 Conclusion Atrial fibrillation...? atrial activity RSR' in V1 or V2, probably normal
== END 2024-10-28 13:12 | disposition home or self-care (01) ==
PROVIDERS: PCP Family Medicine; Visit Provider Family Medicine
DX: R42 Dizziness and giddiness (principal); I48.91 Unspecified atrial fibrillation; I48.92 Unspecified atrial flutter
CPT/HCPCS: 93010

== ENCOUNTER 2024-10-28 14:41 | Outpatient (CLI) | payer MEDICARE, SELFPAY ==
[2024-10-28 16:25] LABS: HCT 45.6 % (36.0-46.0); MCH 30.2 pg (27.0-33.0); MCHC 32.9 % (32.0-36.0); MCV 92 fL (80-95); MPV 9.9 fL (8.0-11.0); Platelet Count 240 10^3/uL (130-400); RBC 4.96 10^6/uL (3.93-5.22); RDW-SD 47.4 fL; WBC 11.43 10^3/uL (4.4-10.8)
[2024-10-28 18:51] LABS: ALT 78 U/L (14-59); AST 38 U/L (15-37); Albumin 3.9 g/dL (3.4-5.0); Alkaline Phosphatase 180 U/L (46-116); Anion Gap 10.2 mmol/L (3-11); BUN 28 mg/dL (7-18); Bilirubin, Total 0.4 mg/dL (0.2-1.0); CO2 28.8 mmol/L (21.0-32.0); CREATININE 1.1 mg/dL (0.55-1.02); Calcium 9.8 mg/dL (8.5-10.1); Chloride 104 mmol/L (98-107); Estimated GFR 54.06 (mL/min/1.73m2); Glucose 123 mg/dL (74-106); Sodium 143 mmol/L (136-145); Vitamin B12 1880 pg/mL (193-986)
[2024-10-29 20:37] LABS: HBs Antibody, Qual Negative (See Note); HBs Antibody, Quant 7.9 mIU/mL (See Note); Hepatitis B Core Antibody Negative (Negative); Hepatitis B surface Ag Negative (Negative); Hepatitis C Ab w Rflx HCV PCR Negative (Negative)
== END 2024-10-28 14:42 | disposition home or self-care (01) ==
LOC: LBO 14:41
PROVIDERS: PCP Family Medicine; Visit Provider Family Medicine
DX: I10 Essential (primary) hypertension (principal); R00.2 Palpitations; R74.8 Abnormal levels of other serum enzymes; E11.9 Type 2 diabetes mellitus without complications; I48.91 Unspecified atrial fibrillation; I48.92 Unspecified atrial flutter; R42 Dizziness and giddiness
CPT/HCPCS: 36415; 80053; 85027; 86704; 86706; 86803; 87340; 82607; 83036

== ENCOUNTER 2024-10-29 10:12 | Outpatient (CLI) | payer MEDICARE, SELFPAY | END 2024-10-29 10:13 | disposition home or self-care (01) | PROVIDERS: PCP Family Medicine; Visit Provider Family Medicine | DX: I48.91 Unspecified atrial fibrillation (principal); I48.92 Unspecified atrial flutter | CPT/HCPCS: 93246 ==

== ENCOUNTER 2024-10-31 01:00 | Outpatient (CLI) | payer MEDICARE, SELFPAY ==
--- NOTE | 2024-10-31 06:51 | DI.NM_ITS ---
APPROVED REPORT Exam: Exercise Treadmill Patient Location: Out-Patient Room/Bed: Stress Nurse: Mandi Moss RN Ordering Provider:LOREN WHITE, Contact Number: [phone] BMI: 29.45 Baseline Rhythm: Atrial Fibrillation Indications: Exertional chest pain, dizziness, palpitations, Medical History Medical History: Epistaxis, GERD, cervical spondylosis, HTN, hx of breast CA, L carotid stenosis, TIA , back pain, HLD Cardiac Medications: Aspirin, propranolol, losartan, atorvastatin, amlodipine, hydrochlorothiazide, a pixaban, metoprolol succinate Allergies: Erythromycin, latex, penicillins, sulfas, tetracycline, neomycin Cardiac Risk Factors: Family hx, HTN, HLD, pre diabetes, former smoker Previous Cardiac Procedures: None Pretest Chest Pain Characteristics: None Exercise History: Sedentary Physical Disabilities: None Lung Sounds: Clear to auscultation Heart Sounds: Irregular Stress Test Details Test: Exercise stress was performed using a manual protocol. Nuclear Acquisition: Rest Tc-99m/Stress Tc-99m 1 day Rest Isotope: Tc-99m Sestamibi. Dose: 10.0 Date: 10/31/24 Injection Time: 0915 Stress Isotope: Tc-99m Sestamibi. Dose: 30.0 Date: 10/31/2024 Injection Time: 1052 HR Resting HR Supine: 105 bpm Max Heart Rate (APMHR): 150 bpm Resting HR Standin bpm Target HR (85% APMHR): 128 bpm Max HR Achieved: 141 bpm % of APMHR: 94 Recovery HR: 88 bpm HR response to stress: Accelerated HR response to stress Comment: Patient met target HR ambulating to treadmill, no need to use kai scan. BP Resting BP Supine: 110/80 mmHg Resting BP Standin/90 mmHg Max BP: 170/90 mmHg Recovery BP: 120/72 mmHg BP response to stress: Normal blood pressure response to stress. ECG Resting ECG: Atrial Fibrillation Ectopy: None Stress ECG: Atrial Fibrillation ST Change: No significant ST segment changes noted Recovery ECG: Atrial Fibrillation Recovery ST Change: No significant ST segment changes noted Clinical Reason for Termination: Target HR Achieved Stress Symptoms: None Exercise duration: 05 min58 sec Highest Stage Reached: N/A Exercise capacity: 2.3 METs Angina Score: None Jackson Treadmill Score: 5.8 Rate Pressure Product: [id number] Stress ECG Conclusion 1. Resting electrocardiogram showed atrial fibrillation and low voltage 2. Patient exercised on a manual protocol for 6 minutes, a workload of 2.3 METS 3. Rapid heart rate response to activity, likely due to atrial fibrillation. Peak heart rate achieve d was 94% of maximal predicted heart rate for age 4. There was no electrocardiographic evidence of myocardial ischemia 5. See MPI report Jackson Treadmill Score is 5.8 which is Low risk. Stress Test Summary STAGE Time (mins) Speed (mph) Grade (%) HR BP SpO2 SYMPTOMS METS Supine 105 110/80 96% Standing 94 160/90 1 3 1.7 10 138 170/90 94% 4.5 2 6 2.5 12 136 164/88 95% 7 3 9 3.4 14 136 10 1 min recovery 113 140/80 98% 3 min recovery 98 118/70 98% 6 min recovery 88 120/72 Target HR met while ambulating to treadmill so lexiscan not given. Patient remained at a speed of 1. 7 mph for majority of test (increased twice to 0.9 mph to 1.4 mph, and finally 1.7) mph for a total o f 5 minutes and 58 seconds. Patient denied and signs or symptoms and proceeded ambulatory to imaging in no apparent distress. MPI Conclusion Myocardial perfusion is normal. There is no ischemia or evidence of prior infarction Ejection fraction is 68% with normal wall motion
== END 2024-10-31 01:20 ==
LOC: DI 01:01
PROVIDERS: PCP Family Medicine; Visit Provider Internal Medicine Cardiovascular Disease
DX: R07.9 Chest pain, unspecified (principal); I35.8 Other nonrheumatic aortic valve disorders
CPT/HCPCS: 78452; 93016; 93017

== ENCOUNTER 2024-11-06 01:50 | Outpatient (CLI) | payer MEDICARE, SELFPAY ==
--- NOTE | 2024-11-06 07:30 | DI.US_ITS ---
APPROVED REPORT EXAM: Comprehensive 2D, Doppler, and color-flow Echocardiogram Patient Location: Out-Patient Welder/Installer: Elian Souza RDCS (AE) Indications: New exertional chest pain Other Information Study Quality: Adequate Conclusion Normal left ventricular wall thickness and chamber size. Ejection fraction is 65%. Wall motion is n ormal Normal right ventricular size and function Left atrium is mildly dilated. Right atrial size is normal Aortic valve is trileaflet and mildly sclerotic with trace regurgitation Normal mitral valve with mild to moderate regurgitation Trace to mild tricuspid regurgitation. Estimated right ventricular systolic pressure is 30 mmHg Wall motion Left Ventricle The left ventricle is normal size. The left ventricular systolic function is normal. The left ventric ular ejection fraction is within the normal range. There is normal LV segmental wall motion. The left ventricular diastolic function is normal. There is no ventricular septal defect visualized. LVEF is 65%. Right Ventricle The right ventricle is normal size. The right ventricular systolic function is normal. Atria Left atrium is mildly dilated. The right atrium size is normal. The interatrial septum is intact with no evidence for an atrial septal defect. Aortic Valve Aortic valve is trileaflet and mildly sclerotic. There is no aortic valvular stenosis. Trivial aorti c regurgitation. Mitral Valve The mitral valve is normal in structure. No evidence of mitral valve stenosis. Mild to moderate holden l regurgitation. Tricuspid Valve The tricuspid valve is normal in structure. There is no tricuspid valve stenosis. Trace to mild tricu spid regurgitation. The RVSP is 30.3 mmHg. Pulmonic Valve The pulmonary valve is normal in structure. There is no pulmonic valvular stenosis. Trace to mild pul tosin regurgitation. Great Vessels The aortic root is normal in size. The ascending aorta is normal in size. Aortic arch is not well vis ualized. IVC is normal in size and collapses >50% with inspiration. Pericardium There is no pericardial effusion. 2D Dimensions IVSD d PLAX 1.13 cm F: 0.6-1.0 Ao Root d 3.12 cm F: 2.7 - 3.3 LVPW d PLAX 1.10 cm F: 0.6 - 1.0 Ao Asc Diam d 2.67 cm F: 2.3 - 3.1 LVID d PLAX 4.79 cm F: 3.8 - 5.2 LVDs 3.08 cm F: 2.2 - 3.5 LV EF Teichholz 65.0 % FS 35.63 % LV EDV (Teich) 106.8 mL LV ESV (Teich) 37.4 mL Stroke Vol Index (Teich) 36.36 M-Mode TAPSE 1.99 cm (M/F) >1.7 Auto EF LV EDV A4C 97.0 mL LV EDV A2C 77.4 mL LV EDV BP 86.2 mL LV ESV A4C 33.5 mL LV ESV A2C 26.3 mL LV ESV BP 29.7 mL LVEF(%) A4C 65.5 % LVEF(%) A2C 66.1 % LVEF(%) BP 65.6 % LV SV A4C 63.5 ml LV SV A2C 51.2 ml LV SV BP 56.6 ml LV CO A4C 3.8 L/min LV CO A2C 3.1 L/min LV CO BP 3.4 L/min HR A4C 60.10 BPM HR A2C 59.71 BPM LV EDV Index (BP) LA Volume LA Length A4C 5.2 cm LA Length A2C 4.9 cm LA Area A4C s 18.33 cm2 LA Area A2C s 14.97 cm2 LA Vol A4C A-L 54.79 mL LA Vol A2C A-L 38.74 mL LA Vol Biplane A-L 47.4 mL LA Vol/BSA A4C A-L LA Vol/BSA A2C A-L LA Vol/BSA BP A-L 24.8 mL/m2 LA Vol A4C MOD 48.4 mL LA Vol A2C MOD 36.1 mL LA Vol BP MOD 42.8 mL RA Volume RA Area A4C 7.4 cm2 RA ESV A4C (A-L) 11.5mL RA Vol/BSA A4C A-L RA Length A4C 4.1 cm RA ESV A4C (MOD) 10.2mL LV Diastology MV E' medial 0.084 (>0.07 m/s) MV E Vmax 1.35 (0.4-1.3 m/s) MV E/E' MED 15.98 (<14) MV A Vmax 0.45 (0.4-1.3 m/s) MV E' lateral 0.082 (>0.1 m/s) E/A Ratio 3.0 MV E/E' LAT 16.40 (<14) MV E' Average 0.083 m/s MV E/E'(average) 16.19 Aortic Valve AoV Vmax 1.34 m/s LVOT Vmax 0.96 m/s AoV Peak Grad 7.2 mmHg LVOT Peak Grad 3.7 mmHg AoV Area (Vmax) 2.19 cm2 LVOT VTI 0.258 m AoV VTI 0.363 m LVOT Mean Grad 2.1 mmHg AoV Mean Tom. 1.04 m/s LVOT SV 79.04 mL AoV Mean Grad 4.6 mmHg LVOT Diam s 1.95 cm AoV Area (VTI) 2.18 cm2 AV Regurg Peak Gr. 7.19 mmHg Velocity Ratio 0.72 Mitral Valve MV DT 161 (160-240 msec) MR Vmax 5.01 m/s MV Vmax TIPS 1.32 m/s MR VTI 1.839 m MV Mean Grad 2.1 (<2mmHg) MR Peak Grad 100.4 mmHg MV VTI 0.336 m MR Mean Grad 77.8 mmHg MR PISA Radius 0.34 cm MR Aliasing Velocity 0.30 m/s Pulmonary Valve PV Vmax 0.88 (0.5-1.5 m/s) RVOT Vmax 0.57 m/s PV Peak Grad 3.1 mmHg RVOT Peak Gr. 1.3 mmHg PV Mean Tom 0.59 m/s RVOT VTI 0.137 m PV Mean Grad 1.6 mmHg RVOT Mean Gr. 0.8 mmHg Tricuspid Valve RA Pressure 3.00 mmHg TR Vmax 2.61 m/s TV S' 0.16 m/s TR Peak Grad 27.3 mmHg RVSP (TR) 30.3 mmHg
== END 2024-11-06 02:10 ==
LOC: DI 01:50
PROVIDERS: PCP Family Medicine; Visit Provider Internal Medicine Cardiovascular Disease
DX: R07.9 Chest pain, unspecified (principal); I35.0 Nonrheumatic aortic (valve) stenosis
CPT/HCPCS: 93306

== ENCOUNTER 2024-11-19 09:58 | Outpatient (CLI) | payer MEDICARE, SELFPAY ==
--- NOTE | 2024-11-19 09:45 | RT.EKG_ITS ---
APPROVED REPORT Exam: Resting ECG Reason for Exam: afib Patient Location: O HR:62 bpm ECG Measurements Heart Rate 62 AXIS CO 228 P 83 QRSd 89 QRS -16 QT 401 T 1 QTc 408 Conclusion Sinus rhythm...normal P axis, V-rate 50- 99 Prolonged CO interval...CO >220, V-rate 50- 90
== END 2024-11-19 09:59 | disposition home or self-care (01) ==
LOC: DI.CARD 09:58
PROVIDERS: PCP Family Medicine; Visit Provider Internal Medicine Cardiovascular Disease
DX: I48.91 Unspecified atrial fibrillation (principal)
CPT/HCPCS: 93010

== ENCOUNTER → 2024-11-19 12:53 | Outpatient (BNVA) | payer MEDICARE, SELFPAY ==
--- NOTE | 2024-11-19 14:22 | W.CARDEVENT ---
Date of service: 11/19/24 Time of Service: 14:22 Cardiac Event Recorder Referring Provider:: Megan Jimenez Indications:: Paroxysmal atrial fibrillation Cardiac Event Note: This is a cardiac event monitor. Patient was monitored for 11 days and 14 hours. 70% of the time the patient was in sinus rhythm. Minimum heart rate was 44, maximum 97, average 69 30% of the time the patient was in atrial fibrillation. Heart rate was controlled when in atrial fibrillation the majority of the time. There was no high-grade AV block, no pauses greater than 3 seconds. There were no significant ventricular dysrhythmias. Symptoms were reported. Half the time and they correlated to sinus rhythm, the other half to controlled atrial fibrillation
== END ==
PROVIDERS: PCP Family Medicine; Referring Provider Family Medicine; Visit Provider Internal Medicine Cardiovascular Disease
DX: I48.0 Paroxysmal atrial fibrillation (principal); I10 Essential (primary) hypertension; I48.92 Unspecified atrial flutter; Z79.01 Long term (current) use of anticoagulants
CPT/HCPCS: 00123; 93248; 99214

== ENCOUNTER → 2024-12-10 07:59 | Outpatient (BNVA) | payer MEDICARE, SELFPAY | PROVIDERS: PCP Family Medicine; Referring Provider Family Medicine; Visit Provider Surgery | DX: K82.8 Other specified diseases of gallbladder (principal) | CPT/HCPCS: 99214 ==

== ENCOUNTER 2024-12-24 00:08 | Outpatient (CLI) | payer MEDICARE, SELFPAY ==
--- NOTE | 2024-12-24 06:15 | DI.CT_ITS ---
Exam(s) CT CHEST WO EXAM: CT CHEST WO CLINICAL HISTORY: F/U ABNL CT,R91.8,F/U RLL NODULE. TECHNIQUE: Multi planar reconstructions were performed. CONTRAST MATERIAL: None COMPARISON: CT CT CHEST LUNG CANCER SCREEN from 04/02/[address] CHEST WO from 07/03/2024 FINDINGS: CHEST: LUNGS: Chronic interstitial disease again noted. There are no new infiltrates. Respect to the previ ously described noncalcified right lung nodules, the 2 small nodules in the right upper lobe remained unchanged in size and the larger nodule posteriorly in the right lower lobe has also not increased i n size, measuring 7 by 6 mm, unchanged. There are no new right lung nodules. In the opposite-left lung there is an unchanged tiny nodule in the left lung base and no new left mikey g nodules. There are no pleural effusions on either side. MEDIASTINUM: There is no obvious hilar nor mediastinal adenopathy. Visualized thyroid unremarkable.No obvious axillary adenopathy CARDIAC: Heart size is upper normal. There is no pericardial effusion.Caliber of the thoracic aorta is within normal limits. VISUALIZED UPPER ABDOMEN: OSSEOUS: No significant osseous lesions.Nondisplaced fracture in the lateral aspect of the left 5th r ib again noted. This is not acute and was evident on both prior CT scans listed above.. OTHER: Multiple prominent calcifications are again noted in the left breast which are dystrophic and probably related to prior surgery/lumpectomy.. IMPRESSION: 1. There is continued stable appearance of the previously described right lung nodules measuring up t o 7 mm. There are no new lung nodules, infiltrates, nor pleural effusions 2. No new intrathoracic adenopathy. 3. Recommend follow-up CT scan in 12 months, earlier if clinically indicated. RADIATION DOSE DELIVERED: 254.68mGy.cm Total DLP DATA REPOSITORY: All CT scans at this facility are submitted to the National Radiology Data Registry (NRDR) Dose Index Registry (DIR) with the [employer] (ACR). RADIATION OPTIMIZATION: All CT scans at this facility use at least one of these dose optimization te chniques: automated exposure control; mA and/or kV adjustment per patient size (includes targeted exa ms where dose is matched to clinical indication); or iterative reconstruction.
== END 2024-12-24 00:28 ==
LOC: DI 00:08
PROVIDERS: PCP Family Medicine; Visit Provider Family Medicine
DX: R91.8 Other nonspecific abnormal finding of lung field (principal)
CPT/HCPCS: 71250

== ENCOUNTER 2025-02-18 01:40 | Outpatient (CLI) | payer MEDICARE, SELFPAY ==
--- NOTE | 2025-02-18 05:45 | DI.US_ITS ---
Exam(s) US ABDOMEN LIMITED EXAM: US ABDOMEN LIMITED CLINICAL HISTORY: re-evaluate GB wall thickening of 08/2024,k82.8 TECHNIQUE: Ultrasound abdomen performed using standard protocol. COMPARISON: US US ABDOMEN LIMITED from 09/10/2024 FINDINGS: LIVER: Normal size and echogenicity. No focal liver lesions are seen. GALLBLADDER: No evidence of cholelithiasis. There is diffuse mild gallbladder wall thickening 3 to 5 millimeters. No pericholecystic fluid identified. Similar appearance to prior. No abnormality is seen on recent noncontrast chest CT. SRIVASTAVA'S SIGN: Negative. BILIARY SYSTEM: No intrahepatic or extrahepatic biliary ductal dilation. Right KIDNEY: No evidence of renal calculi. No evidence of hydronephrosis. No renal mass or cyst identified. PANCREAS: Normal where visualized. ASCITES: None seen. IMPRESSION: Diffuse gallbladder wall thickening again noted. No biliary dilatation or focal mass is visible. DATA REPOSITORY:
== END 2025-02-18 02:00 ==
PROVIDERS: PCP Family Medicine; Visit Provider Surgery
DX: K82.8 Other specified diseases of gallbladder (principal)
CPT/HCPCS: 76705

== ENCOUNTER 2025-03-24 15:38 | Outpatient (CLI) | payer MEDICARE, SELFPAY ==
[2025-03-24 15:19] LABS: Hemoglobin A1C 5.8 % (<5.7)
[2025-03-24 16:17] LABS: ALT 43 U/L (14-59); AST 20 U/L (15-37); Albumin 3.7 g/dL (3.4-5.0); Alkaline Phosphatase 109 U/L (46-116); Anion Gap 10.0 mmol/L (3-11); BUN 19 mg/dL (7-18); Bilirubin, Total 0.3 mg/dL (0.2-1.0); CO2 28.0 mmol/L (21.0-32.0); Calcium 9.1 mg/dL (8.5-10.1); Chloride 105 mmol/L (98-107); Estimated GFR 68.35 (mL/min/1.73m2); Glucose 96 mg/dL (74-106); Potassium 4.0 mmol/L (3.5-5.1); Sodium 143 mmol/L (136-145); Total Protein 7.4 g/dL (6.4-8.2); Vitamin B12 601 pg/mL (193-986)
== END 2025-03-24 15:39 | disposition home or self-care (01) ==
LOC: LBO 15:38
PROVIDERS: PCP Family Medicine; Visit Provider Family Medicine
DX: E11.9 Type 2 diabetes mellitus without complications (principal); I10 Essential (primary) hypertension; K21.00 Gastro-esophageal reflux disease with esophagitis, without bleeding
CPT/HCPCS: 36415; 80053; 82607; 83036

== ENCOUNTER 2025-06-25 08:12 | Outpatient (CLI) | payer MEDICARE, SELFPAY ==
--- NOTE | 2025-06-25 08:00 | RT.EKG_ITS ---
APPROVED REPORT Exam: Resting ECG Reason for Exam: afib Patient Location: O HR:102 bpm ECG Measurements Heart Rate 102 [place] [place] [id number] P [id number] QRSd 80 QRS 53 QT 336 T -44 QTc 438 Conclusion Atrial flutter...A-rate 223 Low voltage, precordial leads...precordial leads <1.0mV Nonspecific T abnormalities, inferior leads...T <-0.10mV, II III aVF
== END 2025-06-25 08:13 | disposition home or self-care (01) ==
LOC: DI.CARD 08:13
PROVIDERS: PCP Family Medicine; Visit Provider Internal Medicine Cardiovascular Disease
DX: I65.22 Occlusion and stenosis of left carotid artery (principal); I48.91 Unspecified atrial fibrillation; I48.92 Unspecified atrial flutter
CPT/HCPCS: 93010

== ENCOUNTER → 2025-06-25 09:03 | Outpatient (BNVA) | payer MEDICARE, SELFPAY | PROVIDERS: PCP Family Medicine; Referring Provider Family Medicine; Visit Provider Internal Medicine Cardiovascular Disease | DX: I48.91 Unspecified atrial fibrillation (principal); I48.92 Unspecified atrial flutter; I65.22 Occlusion and stenosis of left carotid artery | CPT/HCPCS: 99215; 93005 ==